=== PATIENT | female | born 1970 | race Caucasian/White ===

== ENCOUNTER 2018-04-10 20:23 | Emergency (ER) | payer OTHER, MEDICAID, SELFPAY ==
[2018-04-10 20:40] VITALS: BP 217/110; PULSE 82; RESP 18; TEMP 36.5; O2SAT 96; BMI 34.7
[2018-04-10 22:38] VITALS: BP 192/89; PULSE 82; RESP 18; TEMP 36.7; O2SAT 97
[2018-04-10] MEDS: ONDANSETRON 4 MG/2 ML INJ IV ×2 (23:00→23:28)
[2018-04-10 23:02] LABS: Add Manual Diff / Slide Review NO; Basophils Percent Auto 0.3 % (0-2); Eosinophils Percent Auto 0.2 % (2-4); Hematocrit 41.3 % (36-46); Hemoglobin 13.9 g/dL (12.0-16.0); Lymphocytes Percent Auto 5.9 % (25-40); Mean Corpuscular HGB Conc 33.6 % (30-36); Mean Corpuscular Hemoglobin 31.3 PG (26-34); Monocytes Percent Auto 2.4 % (3-14); Neutrophils Absolute Auto 17900 /uL (3000-5900); Neutrophils Percent Auto 91.2 % (50-75); Platelet Count 294 X10^3/uL (150-400); Red Blood Cell Count 4.44 X10^6/uL (4.0-5.2); Red Cell Distribution Width 13.4 % (11.6-14.8); White Blood Cell Count 19.6 X10^3/uL (4.5-11.0)
[2018-04-10 23:16] LABS: Alanine Aminotransferase 30 IU/L (9-52); Albumin 4.7 g/dL (3.5-5.0); Albumin Globulin Ratio 1.3 (1.0-2.8); Alkaline Phosphatase 94 U/L (38-126); Aspartate Aminotransferase 23 IU/L (14-36); BUN Creatinine Ratio 18.6 (6-22); Bilirubin Total 0.6 mg/dL (0.2-1.3); Blood Urea Nitrogen 13 mg/dL (7-17); Calcium 9.4 mg/dL (8.4-10.2); Carbon Dioxide 24 mmol/L (22-32); Chloride 103 mmol/L (98-107); Estimated Glomerular Filt Rate > 60.0 mL/min (>60); Globulin 3.7 g/dL (1.7-4.1); Glucose 267 mg/dL (70-100); HEMOLYSIS < 15 (0-50); Lipase 99 U/L (23-300); Potassium 3.8 mmol/L (3.4-5.1); Sodium 141 mmol/L (137-145); Total Protein 8.4 g/dL (6.3-8.2)
--- NOTE | 2018-04-10 23:19 | DI.CT.S_ITS ---
PROCEDURE: CT ABDOMEN PELVIS W CON INDICATIONS: severe abdominal pain TECHNIQUE: After the administration of intravenous contrast, 5 mm thick sections acquired from the diaphragm to the symphysis. 5 mm coronal and sagittal reformats were acquired. For radiation dose reduction, the following was used: automated exposure control, adjustment of mA and/or kV according to patient size. COMPARISON: [facility], CT, ABDOMEN/PELVIS WITH CONTRAST, 04/21/2017, 14:29. FINDINGS: Image quality: Excellent. ABDOMEN: Lung bases: Lung bases are clear. Heart size is normal. Solid organs: Liver is mildly enlarged. Gallbladder is unremarkable. Biliary system is non dilated. Pancreas enhances normally. Spleen is normal in size and enhancement. No adrenal nodules. Kidneys demonstrate normal size and enhancement, without hydronephrosis. Peritoneum and bowel: There is significant thickening and masslike appearance within the cecum extending into the proximal ascending colon. Transverse, descending and sigmoid colon appear thickened. However, they are incompletely distended. Pericolonic inflammatory change is noted surrounding the cecum and ascending colon. The appendix is unremarkable. Nodes and vessels: No retroperitoneal or mesenteric adenopathy by size criteria. However, multiple right lower quadrant lymph nodes are present ranging in size from 2-4 mm. Aorta and inferior vena cava are normal in size. Miscellaneous: No ventral hernias. PELVIS: Genitourinary: Bladder wall thickness is normal. Multiple low attenuation foci are present within the right adnexal region. Miscellaneous: No inguinal hernias or adenopathy. Bones: No suspicious bony lesions. No vertebral body compression fractures. IMPRESSION: 1. Inflammatory change within the cecum and ascending colon as above with surrounding lymph nodes and pericolonic stranding. Overall appearance is suggestive of infection/inflammation such as colitis with reactionary lymph nodes. However, due to a somewhat masslike appearance, interval imaging followup is recommended after appropriate therapy to document resolution and exclude presence of underlying mass. Dictated by: Margarita Teran M.D. on 04/11/2018 at 8:38 Approved by: Margarita Teran M.D. on 04/11/2018 at 8:46
[2018-04-10] MEDS: HYDROMORPHONE 0.5 MG INJ IV (23:29)
[2018-04-10] MEDS: PANTOPRAZOLE 40 MG VIAL IV (23:30)
[2018-04-10] MEDS: SODIUM CHLORIDE 0.9% 1,000 ML 150 ML IV (23:45)
[2018-04-11 00:40] VITALS: BP 185/89; PULSE 88; RESP 18; O2SAT 97
[2018-04-11] MEDS: ONDANSETRON 4 MG ODT PREPACK 1 BOTTLE MISC (00:57)
[2018-04-11] MEDS: metroNIDAZOLE 250 MG TABLET 500 MG PO (00:57)
[2018-04-11] MEDS: levoFLOXacin 500 MG TABLET PO (00:57)
[2018-04-11] MEDS: OXYCODONE/APAP 5/325 PREPACK 1 BOTTLE MISC (01:00)
--- NOTE | 2018-04-11 05:12 | ED_ITS ---
HPI - Abdominal Pain General Chief Complaint: Abdominal Pain Stated Complaint: THOWING UP DIARRHEA STOMACH PAIN Time Seen by Provider: 04/10/18 20:58 Source: patient Mode of arrival: ambulatory Limitations: no limitations History of Present Illness HPI narrative: Patient presents to the emergency department today with a chief complaint of some generalized abdominal discomfort as well as nausea, vomiting and occasional diarrhea. She is not dizzy nor weak or lightheaded. She denies any recent antibiotics. She denies any chest pain or shortness of breath. She has had no fever or chills. She denies recent travel or exposure to bad food. MD complaint: abdominal pain Onset (ago): day(s) Pain Consistency: constant Location: diffuse Severity: moderate Quality: cramping and aching Radiation: none Migration to: no migration Relieving factors: nothing Exacerbating factors: nothing Associated symptoms: nausea, vomiting and diarrhea Related Data Home Medications Medication Instructions Recorded Confirmed [METOCLOPRAMIDE HCL ] 5 mg PO PRN PRN #0 08/25/17 ondansetron 4 mg PO Q8HP PRN #0 08/25/17 Previous Rx's Medication Instructions Recorded [Custom Inserts] units #6 06/11/17 albuterol sulfate [Proventil HFA] 2 puff INH Q4-6H #1 inh 06/18/17 fluticasone [Flovent HFA] 1 - 2 puff INH Q12H #1 inh 06/18/17 Glucose: Home Monitoring Kit 0 kit #1 ea 07/16/17 rabeprazole 20 mg PO BID #60 tab 11/06/17 gabapentin [Neurontin] 300 - 600 mg PO HS #180 cap 12/16/17 lisinopril 2.5 mg PO QDAY #90 tab 12/30/17 metformin [Glucophage] 500 mg PO BIDCC #180 tab 12/30/17 Glucose: Test Strips str BID #180 01/01/18 fluconazole [Diflucan] 150 mg PO ONCE #2 tab 01/01/18 insulin glargine [Lantus Solostar 60 - 80 unit SQ BID 90 Days #0 01/01/18 U-100 Insulin] Diabetic shoes & Inserts&Guantlets #1 ea 02/03/18 pen needle, diabetic 31 gauge x #100 each 02/09/1802/04 ciprofloxacin HCl [Cipro] 500 mg PO BID 10 Days #20 tab 07/21/18 metronidazole [Flagyl] 500 mg PO TID 10 Days #30 tab 04/11/18 Allergies Allergy/AdvReac Type Severity Reaction Status Date / Time codeine [CODEINE] Allergy Severe HIVES AND Verified 04/10/18 23:28 ITCHING ibuprofen [IBUPROFEN] Allergy Severe SEVERE Verified 04/10/18 23:28 ABDOMINAL PAIN AND OTHER STOMACH ISSUES morphine [MORPHINE] Allergy Severe BURNING, Verified 04/10/18 23:28 REDNESS Sulfa (Sulfonamide Allergy Severe HIVES Verified 04/10/18 23:28 Antibiotics) [SULFA (SULFONAMIDE ANTIBIOTICS)] hydrocodone [HYDROCODONE] Allergy Intermediate ITCHING Verified 04/10/18 23:28 doxycycline [DOXYCYCLINE] AdvReac Intermediate reaction Verified 04/10/18 23:28 to sunlight-burning ketorolac [From TORADOL] AdvReac Intermediate vomiting Verified 04/10/18 23:28 nitrofurantoin AdvReac Mild NAUSEA AND Verified 04/10/18 23:28 [NITROFURANTOIN] VOMITING Review of Systems Review of Systems All systems reviewed & are unremarkable except as noted in HPI and below Constitutional Denies chills, Denies fever(s), Denies lethargy and Denies weakness Eyes Denies change in vision, Denies eye discharge, Denies irritation and Denies loss of vision ENT Ears, Nose, Mouth, and Throat: Denies change in voice, Denies neck pain and Denies sore throat Cardiovascular Denies chest pain, Denies irregular heart rhythm, Denies lightheadedness, Denies palpitations, Denies dyspnea, Denies dyspnea on exertion and Denies orthopnea Respiratory Denies cough, Denies dyspnea, Denies dyspnea on exertion and Denies wheezing Gastrointestinal Gastrointestinal: Reports abdominal pain, Denies change in bowel habits, Reports diarrhea, Reports nausea and Reports vomiting Genitourinary Denies hematuria, Denies flank pain, Denies urinary incontinence and Denies urinary urgency Musculoskeletal Denies neck pain Integumentary/Breasts Denies pruritus, Denies erythema, Denies rash and Denies wounds Neurologic Denies confusion, Denies loss of vision and Denies weakness Psychiatric Denies anxiety, Denies confusion, Denies depression, Denies homicidal ideation and Denies suicidal ideation Endocrine Denies palpitations Hematologic/Lymphatic Denies easy bruising Allergic/Immunologic Denies wheezing PFSH Surgical History History of tonsillectomy Status post delivery Status post hysterectomy Family History Father Heart disease Diabetes mellitus Social History Smoking Status: Former smoker Exam Initial Vital Signs Initial Vital Signs: Vital Signs Temperature 97.7 F 04/10/18 20:40 Pulse Rate 82 04/10/18 20:40 Respiratory Rate 18 04/10/18 20:40 Blood Pressure 217/110 H 04/10/18 20:40 Pulse Oximetry 96 04/10/18 20:40 Const General: cooperative, well developed and acute distress Nutritional Appearance: well nourished Orientation: alert, awake, oriented x3 and not confused HENCT Head: normocephalic and atraumatic Ears: external ears normal and TM's normal bilaterally Nose: external nose normal and No nasal discharge Face and sinus: sinuses nontender, face symmetric, no sinus tenderness and No dry mucous membranes Mouth: oral mucosae normal and moist mucous membranes Teeth and gingiva: dentition normal Throat: tonsils normal and uvula midline Eyes General: appearance normal, both eyes and all related structures Eyelids: eyelids normal Conjunctivae: conjunctivae normal Sclera: sclerae normal Pupils: PERRL EOM: EOM intact bilaterally Neck Neck: normal visual inspection, trachea midline, No lymphadenopathy, No midline deformity and No JVD Lymphatic: No lymphedema Chest Chest: normal inspection of the chest Resp Effort & Inspection: normal respiratory effort, able to speak in complete sentences, no respiratory distress and no use of accessory muscles Auscultation: clear to auscultation bilaterally, no rales, no rhonchi and no wheezes Cardio Rate: regular rate Rhythm: regular rhythm Heart Sounds: no click, no gallops, no murmurs and no rubs Pulses: normal peripheral pulses GI Inspection: non-distended Palpation: soft, no hepatosplenomegaly, No guarding, No pulsatile mass and tender (generalized tenderness) Auscultation: normal bowel sounds Back/Spine/Pelvis Back: No CVA tenderness Cervical Spine: cervical ROM normal and No pain with cervical ROM Thoracic/Lumbar Spine: thoracic and lumbar spine normal to inspection Skin General: no rashes or lesions noted, No jaundice and No petechiae Neuro General: alert, oriented x3, gait normal and no focal motor deficits Speech: speech normal Extrem General: full ROM, no clubbing, cyanosis or edema, no pedal edema and no calf tenderness Psych Appearance: well kempt Mental Status: mental status grossly normal Attitude: cooperative Thought Content: normal and suicidality Judgment: judgment good Course Orders Ordered: ED Orders 04/10/18 22:50 Complete Blood Count AUTO DIFF Stat Comprehensive Metabolic Panel Stat Lipase Stat 04/10/18 23:19 CT abdomen pelvis w con Stat 04/11/18 00:49 Urine Microscopic Stat Discontinued Medications Hydromorphone HCl (Dilaudid) 0.5 mg IV NOW ONE Stop: 04/10/18 23:20 Last Admin: 04/10/18 23:29 Dose: 0.5 mg Sodium Chloride (Normal Saline 0.9%) 1,000 mls @ 150 mls/hr IV CONT HENRIETTA Last Infusion: 04/11/18 00:55 Dose: 150 mls/hr Admin: 04/10/18 23:45 Dose: 150 mls/hr Levofloxacin (Levaquin) 500 mg PO NOW ONE Stop: 04/11/18 00:51 Last Admin: 04/11/18 00:57 Dose: 500 mg Metronidazole (Metronidazole) 500 mg PO NOW ONE Stop: 04/11/18 00:51 Last Admin: 04/11/18 00:57 Dose: 500 mg Ondansetron HCl (Zofran) 4 mg IV Q4HR PRN PRN Reason: Nausea And Vomiting Last Admin: 04/10/18 23:28 Dose: 4 mg Admin: 04/10/18 23:00 Dose: 4 mg Ondansetron HCl (Zofran Odt Prepack) 1 bottle MISC SEEINSTR ONE Stop: 04/11/18 00:52 Last Admin: 04/11/18 00:57 Dose: 1 bottle Oxycodone/Acetaminophen (Endocet 5/325 Prepack) 1 bottle MISC SEEINSTR ONE Stop: 04/11/18 00:52 Last Admin: 04/11/18 01:00 Dose: 1 bottle Pantoprazole Sodium (Protonix) 40 mg IV NOW ONE Stop: 04/10/18 23:20 Last Admin: 04/10/18 23:30 Dose: 40 mg Reevaluation(s) Reevaluation #1: Patient feeling much better after the above-stated medications. Vital Signs - 8 hr 04/10/18 22:38 04/11/18 00:40 Temperature 98.0 F Pulse Rate 82 88 Respiratory Rate 18 18 Blood Pressure [Left Arm] 192/89 H 185/89 H Pulse Oximetry 97 97 MDM - Abdominal Pain Lab Data Result diagrams: 04/10/18 22:50 04/10/18 22:50 Lab Results 04/10/18 04/10/18 Range/Units 22:50 22:50 WBC 19.6 H (4.5-11.0) X10^3/uL RBC 4.44 (4.0-5.2) X10^6/uL Hgb 13.9 (12.0-16.0) g/dL Hct 41.3 (36-46) % MCV 93.0 (80-100) fL MCH 31.3 (26-34) PG MCHC 33.6 (30-36) % RDW 13.4 (11.6-14.8) % Plt Count 294 (150-400) X10^3/uL Neut % (Auto) 91.2 H (50-75) % Lymph % (Auto) 5.9 L (25-40) % [place] % (Auto) 2.4 L (3-14) % Eos % (Auto) 0.2 L (2-4) % Baso % (Auto) 0.3 (0-2) % Neut # (Auto) 39243 H (1043-9459) /uL Sodium 141 (137-145) mmol/L Potassium 3.8 (3.4-5.1) mmol/L Chloride 103 (98-107) mmol/L Carbon Dioxide 24 (22-32) mmol/L BUN 13 (7-17) mg/dL Creatinine 0.70 (0.52-1.04) mg/dL Estimated GFR > 60.0 (>60) mL/min BUN/Creatinine Ratio 18.6 (6-22) Glucose 267 H (70-100) mg/dL Calcium 9.4 (8.4-10.2) mg/dL Total Bilirubin 0.6 (0.2-1.3) mg/dL AST 23 (14-36) IU/L ALT 30 (9-52) IU/L Alkaline Phosphatase 94 (38-126) U/L Total Protein 8.4 H (6.3-8.2) g/dL Albumin 4.7 (3.5-5.0) g/dL Globulin 3.7 (1.7-4.1) g/dL Albumin/Globulin Ratio 1.3 (1.0-2.8) Lipase 99 (23-300) U/L Point of care testing: Urine Dip Bedside Urine Glucose 1000 mg/dl Bedside Urine Bilirubin - Negative Bedside Urine Ketone ++ 40 Urine Specific Randall 1.020 Bedside Urine Occult Blood - Negative Bedside Urine pH 7.5 Bedside Urine Protein + 30 Bedside Urine Urobilinogen - Negative Bedside Urine Nitrite - Negative Bedside Urine Leukocytes - Negative Esterase MDM Narrative Medical decision making narrative: Patient with extensive bowel history presents with abdominal pain and nausea, vomiting and diarrhea. Labs note elevated white blood cells, consistent with vomiting versus bacterial infection of bowel. CT suggest colitis. Pain controlled well, patient rehydrated and placed on antibiotics of Discharge Plan Departure Patient Disposition: Home, Self-Care Clinical Impression: Colitis Discharge Date/Time: 04/11/18 01:13 Interventions: ED Discharge Assessment Last Done: 04/11/18 01:13 Instructions: DI for Colitis Activity Restrictions/Additional Instructions: 1. Drink plenty of fluids with frequent small sips. 2. For the next 24 hours a clear liquid diet is advised. After that please employ a brat diet which would include bananas, rice, apples, toast. 3. Please take medications as directed. Your prescriptions have been electronically transmitted to [facility] based on your past preferences 4. Please follow-up with your doctor in the next 1-2 days. Call the office for an appointment. 5. Please return to the emergency Department for any worsening or persistent symptoms, such as increasing pain or fever. Prescriptions: New metronidazole [Flagyl] 500 mg tablet 500 mg PO TID 10 Days Qty: 30 RF: 0 ciprofloxacin HCl [Cipro] 500 mg tablet 500 mg PO BID 10 Days Qty: 20 RF: 0 No Action [Custom Inserts] Qty: 6 RF: 0 fluticasone [Flovent HFA] 10.6 GM HFA aerosol inhaler 1 - 2 puff INH Q12H Qty: 1 RF: 3 albuterol sulfate [Proventil HFA] 90 MCG/PUFF HFA aerosol inhaler 2 puff INH Q4-6H Qty: 1 RF: 3 Glucose: Home Monitoring Kit Qty: 1 RF: 0 [METOCLOPRAMIDE HCL ] 5 mg PO PRN PRNQty: 0 RF: 0 ondansetron 4 MG tablet,disintegrating 4 mg PO Q8HP PRNQty: 0 RF: 0 rabeprazole 20 MG tablet,delayed release (DR/EC) 20 mg PO BID Qty: 60 RF: 3 gabapentin [Neurontin] 300 MG capsule 300 - 600 mg PO HS Qty: 180 RF: 0 metformin [Glucophage] 500 MG tablet 500 mg PO BIDCC Qty: 180 RF: 3 lisinopril 2.5 MG tablet 2.5 mg PO QDAY Qty: 90 RF: 3 Glucose: Test Strips BID Qty: 180 RF: 6 fluconazole [Diflucan] 150 MG tablet 150 mg PO ONCE Qty: 2 RF: 1 insulin glargine [Lantus Solostar U-100 Insulin] 100 UNIT/1 ML insulin pen 60 - 80 unit SQ BID 90 Days Qty: 0 RF: 3 Diabetic shoes & Inserts&Guantlets Qty: 1 RF: 0 pen needle, diabetic [Comfort EZ Pen Roxana] 31 gauge x 5/16 needle .ROUTE .MEDSUPPLY Qty: 100 RF: 0 Referrals: Alexus Fallon PA-C [Primary Care Provider] -
[2018-04-11 08:15] LABS: Bacteria Urine None Seen; RBC Urine None Seen (0-5/HPF); WBC Urine None Seen (0-5/HPF)
[2018-04-11 08:24] LABS: Culture Indicated Urine Cult Not Indicated; Squamous Epithelial Cell Urine 1-5 /HPF
== END 2018-04-11 01:13 | disposition home or self-care (01) ==
PROVIDERS: Emergency Provider Emergency Medicine; Family Provider Physician Assistant; PCP Physician Assistant
DX: K52.9 Noninfective gastroenteritis and colitis, unspecified (principal)
CPT/HCPCS: 36591; 74177; 80053; 81003; 81015; 83690; 85025; 96361; 96374; 96375; 99283; 99284; C9113; J1170; J2405; Q9967

== ENCOUNTER 2018-04-12 11:43 | Emergency (ER) | payer OTHER, MEDICAID, SELFPAY ==
[2018-04-12 12:30] VITALS: BP 155/108; PULSE 105; RESP 18; O2SAT 99
[2018-04-12 12:49] VITALS: PULSE 105; RESP 18; O2SAT 99
--- NOTE | 2018-04-12 13:05 | PC.NURSE ---
atttempted x 2 to start IV - unsuccessful. Izabela DO will try
[2018-04-12 13:27] LABS: Add Manual Diff / Slide Review NO; Basophils Percent Auto 0.4 % (0-2); Hematocrit 47.5 % (36-46); Hemoglobin 16.1 g/dL (12.0-16.0); Mean Corpuscular HGB Conc 33.8 % (30-36); Mean Corpuscular Hemoglobin 31.1 PG (26-34); Mean Corpuscular Volume 91.9 fL (80-100); Neutrophils Absolute Auto 18600 /uL (3000-5900); Neutrophils Percent Auto 88.6 % (50-75); Platelet Count 387 X10^3/uL (150-400); Red Blood Cell Count 5.17 X10^6/uL (4.0-5.2); Red Cell Distribution Width 13.3 % (11.6-14.8); White Blood Cell Count 20.9 X10^3/uL (4.5-11.0)
[2018-04-12] MEDS: SODIUM CHLORIDE 0.9% 1,000 ML 1000 ML IV ×2 (13:27→15:00)
[2018-04-12] MEDS: HALOPERIDOL 5 MG/ML VIAL 3 MG IV (13:28)
[2018-04-12 13:30] VITALS: BP 145/75
[2018-04-12] MEDS: DICYCLOMINE 10 MG CAPSULE 20 MG PO (13:32)
[2018-04-12 13:36] LABS: Lactate (Lactic Acid) 1.5 mmol/L (0.7-2.1)
[2018-04-12 13:41] LABS: Alanine Aminotransferase 24 IU/L (9-52); Albumin 4.8 g/dL (3.5-5.0); Albumin Globulin Ratio 1.2 (1.0-2.8); Alkaline Phosphatase 98 U/L (38-126); Aspartate Aminotransferase 28 IU/L (14-36); Bilirubin Total 0.8 mg/dL (0.2-1.3); Blood Urea Nitrogen 18 mg/dL (7-17); Calcium 9.8 mg/dL (8.4-10.2); Carbon Dioxide 26 mmol/L (22-32); Chloride 95 mmol/L (98-107); Estimated Glomerular Filt Rate 58.9 mL/min (>60); Glucose 233 mg/dL (70-100); HEMOLYSIS < 15 (0-50); Lipase 99 U/L (23-300); Potassium 3.5 mmol/L (3.4-5.1); Sodium 137 mmol/L (137-145); Total Protein 8.8 g/dL (6.3-8.2)
--- NOTE | 2018-04-12 15:07 | ED_ITS ---
HPI - Abdominal Pain General Chief Complaint: Abdominal Pain Stated Complaint: returning for colitis-seen on Friday History of Present Illness HPI narrative: HPI 47-year-old morbidly obese female with IDDM presents for evaluation of ongoing and/B/D that is been present for 3-4 days, patient has been having for plus loose watery stools per day and infrequent vomiting. Patient was seen 3 days prior and initiated on ciprofloxacin and Flagyl without change in symptoms. * Character: non-bloody, no mucus, no pus. * Denies: fresh or salt water exposure, recent hospitalization, travel, drinking untreated water, history of c. difficile. * Fever/chills/rigors: denies. * HIV or immunocompromise: denies. * Cough: denies. M/S/F/SocHx notable for: please see HPI; remainder reviewed with patient and in chart. ROS: Negative constitutional, eye, cardiovascular, pulmonary, GI, , MSK, skin , neurologic, psychiatric, endocrine unless noted in the HPI. Exam Gen: Pleasant, non-toxic appearing, resting comfortably. HEENT: NC, AT, PEERL, EOMI, neck supple with full range of movement. Resp: Clear to auscultation bilaterally, normal work of breathing, no accessory muscle usage. Card: Regular rate and rhythm with no murmurs, rubs, or gallops, extremities warm and well perfused. GI: Non-tender to palpation throughout all quadrants, no focal tenderness at McBurney's point, negative Ryder's sign, non-distended, no rebound or guarding. : No suprapubic tenderness to palpation. MSK: No visible deformities, strength and tone without visually appreciable deficit. Skin: Normal color with no visible lesions. Neuro: AO x 3, no facial asymmetry, vision and hearing WNL. Psych: Mood and affect appropriate. Labs / Imaging (pertinent): WBC 20.9, HB 16.1, sodium 137, potassium 3.5, creatinine 1.00, lactic acid 1.5, Procalcitonin 0.10. MDM Previous chart, nursing note, and vitals reviewed. A: 47-year-old morbidly obese female with IDDM presents for evaluation of ongoing and/B/D that is been present for 3-4 days, patient has been having for plus loose watery stools per day and infrequent vomiting. DDx: viral enteritis, viral gastroenteritis, bacterial gastroenteritis, food poisoning, C. Difficile, dehydration, electrolyte abnormalities, septicemia/ bacteremia, DKA, acute appendicitis, inflammatory (Crohn?s vs ulcerative colitis ). Evaluation: Given the overall symptom constellation, suspect a viral gastroenteritis. As there was a concern for significant dehydration, labs were checked, these were within clinically acceptable limits. Community acquired C. Difficile was also considered, but given the lack of identifiable risk factors and the short duration of symptoms stool studies are not currently indicated. Also, given the absence of fever, identifiable risk factors, or significant abdominal pain on exam, further stool studies are also not presently indicated. Also considered with septicemia/bacteremia, DKA, acute appendicitis, these are felt to be effectively excluded due to the normal respiratory rate, benign abdominal exam, absence of fever, the patient?s overall well appearance. Patient given Haldol, Bentyl, and 1 L normal saline and was able to take PO in the department; prescribed Bentyl and Zofran and instructed to use loperamide PRN and to follow up with their PCP tomorrow for repeat evaluation Impression: diarrhea (please reference below for remainder of encounter information) Related Data Home Medications Medication Instructions Recorded Confirmed [METOCLOPRAMIDE HCL ] 5 mg PO PRN PRN #0 08/25/17 ondansetron 4 mg PO Q8HP PRN #0 08/25/17 Previous Rx's Medication Instructions Recorded [Custom Inserts] units #6 06/11/17 albuterol sulfate [Proventil HFA] 2 puff INH Q4-6H #1 inh 06/18/17 fluticasone [Flovent HFA] 1 - 2 puff INH Q12H #1 inh 06/18/17 Glucose: Home Monitoring Kit 0 kit #1 ea 07/16/17 rabeprazole 20 mg PO BID #60 tab 11/06/17 gabapentin [Neurontin] 300 - 600 mg PO HS #180 cap 12/16/17 lisinopril 2.5 mg PO QDAY #90 tab 12/30/17 metformin [Glucophage] 500 mg PO BIDCC #180 tab 12/30/17 Glucose: Test Strips str BID #180 01/01/18 fluconazole [Diflucan] 150 mg PO ONCE #2 tab 01/01/18 insulin glargine [Lantus Solostar 60 - 80 unit SQ BID 90 Days #0 01/01/18 U-100 Insulin] Diabetic shoes & Inserts&Guantlets #1 ea 02/03/18 pen needle, diabetic 31 gauge x #100 each 02/09/1802/04 ciprofloxacin HCl [Cipro] 500 mg PO BID 10 Days #20 tab 04/11/18 metronidazole [Flagyl] 500 mg PO TID 10 Days #30 tab 04/11/18 Allergies Allergy/AdvReac Type Severity Reaction Status Date / Time codeine [CODEINE] Allergy Severe HIVES AND Verified 04/10/18 23:28 ITCHING ibuprofen [IBUPROFEN] Allergy Severe SEVERE Verified 04/10/18 23:28 ABDOMINAL PAIN AND OTHER STOMACH ISSUES morphine [MORPHINE] Allergy Severe BURNING, Verified 04/10/18 23:28 REDNESS Sulfa (Sulfonamide Allergy Severe HIVES Verified 04/10/18 23:28 Antibiotics) [SULFA (SULFONAMIDE ANTIBIOTICS)] hydrocodone [HYDROCODONE] Allergy Intermediate ITCHING Verified 04/10/18 23:28 doxycycline [DOXYCYCLINE] AdvReac Intermediate reaction Verified 04/10/18 23:28 to sunlight-burning ketorolac [From TORADOL] AdvReac Intermediate vomiting Verified 04/10/18 23:28 nitrofurantoin AdvReac Mild NAUSEA AND Verified 04/10/18 23:28 [NITROFURANTOIN] VOMITING PFS Surgical History History of tonsillectomy Status post delivery Status post hysterectomy Family History Father Heart disease Diabetes mellitus Social History Smoking Status: Former smoker Exam Initial Vital Signs Initial Vital Signs: Vital Signs Pulse Rate 105 H 04/12/18 12:30 Respiratory Rate 18 04/12/18 12:30 Blood Pressure 155/108 H 04/12/18 12:30 Pulse Oximetry 99 04/12/18 12:30 Course Orders Ordered: ED Orders 04/12/18 12:35 Urinalysis and Microscopic Stat Urine Drug Screen, Rapid Stat 04/12/18 13:18 Complete Blood Count AUTO DIFF Stat Comprehensive Metabolic Panel Stat Lactate (Lactic Acid) Stat Lipase Stat Procalcitonin Stat Sodium Chloride (Normal Saline 0.9%) 1,000 mls @ 1,000 mls/hr IV BOLUS ONE Stop: 04/12/18 15:09 Discontinued Medications Dicyclomine HCl (Bentyl) 20 mg PO NOW ONE Stop: 04/12/18 12:34 Last Admin: 04/12/18 13:32 Dose: 20 mg Haloperidol (Haldol) 3 mg IV NOW ONE Stop: 04/12/18 12:34 Last Admin: 04/12/18 13:28 Dose: 3 mg Sodium Chloride (Normal Saline 0.9%) 1,000 mls @ 1,000 mls/hr IV BOLUS ONE Stop: 04/12/18 13:32 Last Admin: 04/12/18 13:27 Dose: 1,000 mls/hr Vital Signs - 8 hr 04/12/18 12:30 04/12/18 12:49 04/12/18 13:30 Pulse Rate 105 H 105 H Respiratory Rate 18 18 Blood Pressure [Left Arm] 155/108 H 145/75 H Pulse Oximetry 99 99 MDM - Abdominal Pain Lab Data Result diagrams: 04/12/18 13:18 04/12/18 13:18 Lab Results 04/12/18 04/12/18 04/12/18 Range/Units 13:18 13:18 13:18 WBC 20.9 H (4.5-11.0) X10^3/uL RBC 5.17 (4.0-5.2) X10^6/uL Hgb 16.1 H (12.0-16.0) g/dL Hct 47.5 H (36-46) % MCV 91.9 (80-100) fL MCH 31.1 (26-34) PG MCHC 33.8 (30-36) % RDW 13.3 (11.6-14.8) % Plt Count 387 (150-400) X10^3/uL Neut % (Auto) 88.6 H (50-75) % Lymph % (Auto) 8.0 L (25-40) % [facility] % (Auto) 3.0 (3-14) % Eos % (Auto) 0.0 L (2-4) % Baso % (Auto) 0.4 (0-2) % Neut # (Auto) 99645 H (0660-6210) /uL Sodium 137 (137-145) mmol/L Potassium 3.5 (3.4-5.1) mmol/L Chloride 95 L (98-107) mmol/L Carbon Dioxide 26 (22-32) mmol/L BUN 18 H (7-17) mg/dL Creatinine 1.00 (0.52-1.04) mg/dL Estimated GFR 58.9 L (>60) mL/min BUN/Creatinine Ratio 18.0 (6-22) Glucose 233 H (70-100) mg/dL Lactate (0.7-2.1) mmol/L Calcium 9.8 (8.4-10.2) mg/dL Total Bilirubin 0.8 (0.2-1.3) mg/dL AST 28 (14-36) IU/L ALT 24 (9-52) IU/L Alkaline Phosphatase 98 (38-126) U/L Total Protein 8.8 H (6.3-8.2) g/dL Albumin 4.8 (3.5-5.0) g/dL Globulin 4.0 (1.7-4.1) g/dL Albumin/Globulin Ratio 1.2 (1.0-2.8) Lipase 99 (23-300) U/L Procalcitonin 0.10 (<0.5) ng/mL 04/12/18 Range/Units 13:18 WBC (4.5-11.0) X10^3/uL RBC (4.0-5.2) X10^6/uL Hgb (12.0-16.0) g/dL Hct (36-46) % MCV (80-100) fL MCH (26-34) PG MCHC (30-36) % RDW (11.6-14.8) % Plt Count (150-400) X10^3/uL Neut % (Auto) (50-75) % Lymph % (Auto) (25-40) % [facility] % (Auto) (3-14) % Eos % (Auto) (2-4) % Baso % (Auto) (0-2) % Neut # (Auto) (9239-0448) /uL Sodium (137-145) mmol/L Potassium (3.4-5.1) mmol/L Chloride (98-107) mmol/L Carbon Dioxide (22-32) mmol/L BUN (7-17) mg/dL Creatinine (0.52-1.04) mg/dL Estimated GFR (>60) mL/min BUN/Creatinine Ratio (6-22) Glucose (70-100) mg/dL Lactate 1.5 (0.7-2.1) mmol/L Calcium (8.4-10.2) mg/dL Total Bilirubin (0.2-1.3) mg/dL AST (14-36) IU/L ALT (9-52) IU/L Alkaline Phosphatase (38-126) U/L Total Protein (6.3-8.2) g/dL Albumin (3.5-5.0) g/dL Globulin (1.7-4.1) g/dL Albumin/Globulin Ratio (1.0-2.8) Lipase (23-300) U/L Procalcitonin (<0.5) ng/mL Discharge Plan Departure Prescriptions: No Action [Custom Inserts] Qty: 6 RF: 0 fluticasone [Flovent HFA] 10.6 GM HFA aerosol inhaler 1 - 2 puff INH Q12H Qty: 1 RF: 3 albuterol sulfate [Proventil HFA] 90 MCG/PUFF HFA aerosol inhaler 2 puff INH Q4-6H Qty: 1 RF: 3 Glucose: Home Monitoring Kit Qty: 1 RF: 0 [METOCLOPRAMIDE HCL ] 5 mg PO PRN PRNQty: 0 RF: 0 ondansetron 4 MG tablet,disintegrating 4 mg PO Q8HP PRNQty: 0 RF: 0 rabeprazole 20 MG tablet,delayed release (DR/EC) 20 mg PO BID Qty: 60 RF: 3 gabapentin [Neurontin] 300 MG capsule 300 - 600 mg PO HS Qty: 180 RF: 0 metformin [Glucophage] 500 MG tablet 500 mg PO BIDCC Qty: 180 RF: 3 lisinopril 2.5 MG tablet 2.5 mg PO QDAY Qty: 90 RF: 3 Glucose: Test Strips BID Qty: 180 RF: 6 fluconazole [Diflucan] 150 MG tablet 150 mg PO ONCE Qty: 2 RF: 1 insulin glargine [Lantus Solostar U-100 Insulin] 100 UNIT/1 ML insulin pen 60 - 80 unit SQ BID 90 Days Qty: 0 RF: 3 Diabetic shoes & Inserts&Guantlets Qty: 1 RF: 0 pen needle, diabetic [Comfort EZ Pen [place]] 31 gauge x 5/16 needle .ROUTE .MEDSUPPLY Qty: 100 RF: 0 metronidazole [Flagyl] 500 mg tablet 500 mg PO TID 10 Days Qty: 30 RF: 0 ciprofloxacin HCl [Cipro] 500 mg tablet 500 mg PO BID 10 Days Qty: 20 RF: 0
--- NOTE | 2018-04-12 15:10 | ED.ABDPAIN ---
HPI - Abdominal Pain General Chief Complaint: Abdominal Pain Stated Complaint: returning for colitis-seen on Friday History of Present Illness HPI narrative: HPI 47-year-old morbidly obese female with IDDM presents for evaluation of ongoing and/B/D that is been present for 3-4 days, patient has been having for plus loose watery stools per day and infrequent vomiting. Patient was seen 3 days prior and initiated on ciprofloxacin and Flagyl without change in symptoms. * Character: non-bloody, no mucus, no pus. * Denies: fresh or salt water exposure, recent hospitalization, travel, drinking untreated water, history of c. difficile. * Fever/chills/rigors: denies. * HIV or immunocompromise: denies. * Cough: denies. M/S/F/SocHx notable for: please see HPI; remainder reviewed with patient and in chart. ROS: Negative constitutional, eye, cardiovascular, pulmonary, GI, , MSK, skin, neurologic, psychiatric, endocrine unless noted in the HPI. Exam Gen: Pleasant, non-toxic appearing, resting comfortably. HEENT: NC, AT, PEERL, EOMI, neck supple with full range of movement. Resp: Clear to auscultation bilaterally, normal work of breathing, no accessory muscle usage. Card: Regular rate and rhythm with no murmurs, rubs, or gallops, extremities warm and well perfused. GI: Non-tender to palpation throughout all quadrants, no focal tenderness at McBurney's point, negative Ryder's sign, non-distended, no rebound or guarding. : No suprapubic tenderness to palpation. MSK: No visible deformities, strength and tone without visually appreciable deficit. Skin: Normal color with no visible lesions. Neuro: AO x 3, no facial asymmetry, vision and hearing WNL. Psych: Mood and affect appropriate. Labs / Imaging (pertinent): WBC 20.9, HB 16.1, sodium 137, potassium 3.5, creatinine 1.00, lactic acid 1.5, Procalcitonin 0.10. MDM Previous chart, nursing note, and vitals reviewed. A: 47-year-old morbidly obese female with IDDM presents for evaluation of ongoing and/B/D that is been present for 3-4 days, patient has been having for plus loose watery stools per day and infrequent vomiting. DDx: viral enteritis, viral gastroenteritis, bacterial gastroenteritis, food poisoning, C. Difficile, dehydration, electrolyte abnormalities, septicemia/bacteremia, DKA, acute appendicitis, inflammatory (Crohn?s vs ulcerative colitis). Evaluation: Given the overall symptom constellation, suspect a viral gastroenteritis. As there was a concern for significant dehydration, labs were checked, these were within clinically acceptable limits. Community acquired C. Difficile was also considered, but given the lack of identifiable risk factors and the short duration of symptoms stool studies are not currently indicated. Also, given the absence of fever, identifiable risk factors, or significant abdominal pain on exam, further stool studies are also not presently indicated. Also considered with septicemia/bacteremia, DKA, acute appendicitis, these are felt to be effectively excluded due to the normal respiratory rate, benign abdominal exam, absence of fever, the patient?s overall well appearance. Patient given Haldol, Bentyl, and 1 L normal saline and was able to take PO in the department; prescribed Bentyl and Zofran and instructed to use loperamide PRN and to follow up with their PCP tomorrow for repeat evaluation Impression: diarrhea (please reference below for remainder of encounter information) Related Data Home Medications Medication Instructions Recorded Confirmed [METOCLOPRAMIDE HCL ] 5 mg PO PRN PRN #0 08/25/17 ondansetron 4 mg PO Q8HP PRN #0 08/25/17 Previous Rx's Medication Instructions Recorded [Custom Inserts] units #6 06/11/17 albuterol sulfate [Proventil HFA] 2 puff INH Q4-6H #1 inh 06/18/17 fluticasone [Flovent HFA] 1 - 2 puff INH Q12H #1 inh 06/18/17 Glucose: Home Monitoring Kit 0 kit #1 ea 07/16/17 rabeprazole 20 mg PO BID #60 tab 11/06/17 gabapentin [Neurontin] 300 - 600 mg PO HS #180 cap 12/16/17 lisinopril 2.5 mg PO QDAY #90 tab 12/30/17 metformin [Glucophage] 500 mg PO BIDCC #180 tab 12/30/17 Glucose: Test Strips str BID #180 01/01/18 fluconazole [Diflucan] 150 mg PO ONCE #2 tab 01/01/18 insulin glargine [Lantus Solostar 60 - 80 unit SQ BID 90 Days #0 01/01/18 U-100 Insulin] Diabetic shoes & Inserts&Guantlets #1 ea 02/03/18 pen needle, diabetic 31 gauge x #100 each 02/09/1802/04 ciprofloxacin HCl [Cipro] 500 mg PO BID 10 Days #20 tab 04/11/18 metronidazole [Flagyl] 500 mg PO TID 10 Days #30 tab 04/11/18 Allergies Allergy/AdvReac Type Severity Reaction Status Date / Time codeine [CODEINE] Allergy Severe HIVES AND Verified 04/10/18 23:28 ITCHING ibuprofen [IBUPROFEN] Allergy Severe SEVERE Verified 04/10/18 23:28 ABDOMINAL PAIN AND OTHER STOMACH ISSUES morphine [MORPHINE] Allergy Severe BURNING, Verified 04/10/18 23:28 REDNESS Sulfa (Sulfonamide Allergy Severe HIVES Verified 04/10/18 23:28 Antibiotics) [SULFA (SULFONAMIDE ANTIBIOTICS)] hydrocodone [HYDROCODONE] Allergy Intermediate ITCHING Verified 04/10/18 23:28 doxycycline [DOXYCYCLINE] AdvReac Intermediate reaction Verified 04/10/18 23:28 to sunlight-burning ketorolac [From TORADOL] AdvReac Intermediate vomiting Verified 04/10/18 23:28 nitrofurantoin AdvReac Mild NAUSEA AND Verified 04/10/18 23:28 [NITROFURANTOIN] VOMITING PFS Surgical History History of tonsillectomy Status post delivery Status post hysterectomy Family History Father Heart disease Diabetes mellitus Social History Smoking Status: Former smoker Exam Initial Vital Signs Initial Vital Signs: Vital Signs Pulse Rate 105 H 04/12/18 12:30 Respiratory Rate 18 04/12/18 12:30 Blood Pressure 155/108 H 04/12/18 12:30 Pulse Oximetry 99 04/12/18 12:30 Course Orders Ordered: ED Orders 04/12/18 12:35 Urinalysis and Microscopic Stat Urine Drug Screen, Rapid Stat 04/12/18 13:18 Complete Blood Count AUTO DIFF Stat Comprehensive Metabolic Panel Stat Lactate (Lactic Acid) Stat Lipase Stat Procalcitonin Stat Discontinued Medications Dicyclomine HCl (Bentyl) 20 mg PO NOW ONE Stop: 04/12/18 12:34 Last Admin: 04/12/18 13:32 Dose: 20 mg Haloperidol (Haldol) 3 mg IV NOW ONE Stop: 04/12/18 12:34 Last Admin: 04/12/18 13:28 Dose: 3 mg Sodium Chloride (Normal Saline 0.9%) 1,000 mls @ 1,000 mls/hr IV BOLUS ONE Stop: 04/12/18 13:32 Last Admin: 04/12/18 13:27 Dose: 1,000 mls/hr Sodium Chloride (Normal Saline 0.9%) 1,000 mls @ 1,000 mls/hr IV BOLUS ONE Stop: 04/12/18 15:09 Vital Signs - 8 hr 04/12/18 12:30 04/12/18 12:49 04/12/18 13:30 Pulse Rate 105 H 105 H Respiratory Rate 18 18 Blood Pressure [Left Arm] 155/108 H 145/75 H Pulse Oximetry 99 99 MDM - Abdominal Pain Lab Data Result diagrams: 04/12/18 13:18 04/12/18 13:18 Lab Results 04/12/18 04/12/18 04/12/18 Range/Units 13:18 13:18 13:18 WBC 20.9 H (4.5-11.0) X10^3/uL RBC 5.17 (4.0-5.2) X10^6/uL Hgb 16.1 H (12.0-16.0) g/dL Hct 47.5 H (36-46) % MCV 91.9 (80-100) fL MCH 31.1 (26-34) PG MCHC 33.8 (30-36) % RDW 13.3 (11.6-14.8) % Plt Count 387 (150-400) X10^3/uL Neut % (Auto) 88.6 H (50-75) % Lymph % (Auto) 8.0 L (25-40) % [facility] % (Auto) 3.0 (3-14) % Eos % (Auto) 0.0 L (2-4) % Baso % (Auto) 0.4 (0-2) % Neut # (Auto) 37724 H (8529-1141) /uL Sodium 137 (137-145) mmol/L Potassium 3.5 (3.4-5.1) mmol/L Chloride 95 L (98-107) mmol/L Carbon Dioxide 26 (22-32) mmol/L BUN 18 H (7-17) mg/dL Creatinine 1.00 (0.52-1.04) mg/dL Estimated GFR 58.9 L (>60) mL/min BUN/Creatinine Ratio 18.0 (6-22) Glucose 233 H (70-100) mg/dL Lactate (0.7-2.1) mmol/L Calcium 9.8 (8.4-10.2) mg/dL Total Bilirubin 0.8 (0.2-1.3) mg/dL AST 28 (14-36) IU/L ALT 24 (9-52) IU/L Alkaline Phosphatase 98 (38-126) U/L Total Protein 8.8 H (6.3-8.2) g/dL Albumin 4.8 (3.5-5.0) g/dL Globulin 4.0 (1.7-4.1) g/dL Albumin/Globulin Ratio 1.2 (1.0-2.8) Lipase 99 (23-300) U/L Procalcitonin 0.10 (<0.5) ng/mL 04/12/18 Range/Units 13:18 WBC (4.5-11.0) X10^3/uL RBC (4.0-5.2) X10^6/uL Hgb (12.0-16.0) g/dL Hct (36-46) % MCV (80-100) fL MCH (26-34) PG MCHC (30-36) % RDW (11.6-14.8) % Plt Count (150-400) X10^3/uL Neut % (Auto) (50-75) % Lymph % (Auto) (25-40) % [facility] % (Auto) (3-14) % Eos % (Auto) (2-4) % Baso % (Auto) (0-2) % Neut # (Auto) (2197-4932) /uL Sodium (137-145) mmol/L Potassium (3.4-5.1) mmol/L Chloride (98-107) mmol/L Carbon Dioxide (22-32) mmol/L BUN (7-17) mg/dL Creatinine (0.52-1.04) mg/dL Estimated GFR (>60) mL/min BUN/Creatinine Ratio (6-22) Glucose (70-100) mg/dL Lactate 1.5 (0.7-2.1) mmol/L Calcium (8.4-10.2) mg/dL Total Bilirubin (0.2-1.3) mg/dL AST (14-36) IU/L ALT (9-52) IU/L Alkaline Phosphatase (38-126) U/L Total Protein (6.3-8.2) g/dL Albumin (3.5-5.0) g/dL Globulin (1.7-4.1) g/dL Albumin/Globulin Ratio (1.0-2.8) Lipase (23-300) U/L Procalcitonin (<0.5) ng/mL Discharge Plan Departure Prescriptions: No Action [Custom Inserts] Qty: 6 RF: 0 fluticasone [Flovent HFA] 10.6 GM HFA aerosol inhaler 1 - 2 puff INH Q12H Qty: 1 RF: 3 albuterol sulfate [Proventil HFA] 90 MCG/PUFF HFA aerosol inhaler 2 puff INH Q4-6H Qty: 1 RF: 3 Glucose: Home Monitoring Kit Qty: 1 RF: 0 [METOCLOPRAMIDE HCL ] 5 mg PO PRN PRNQty: 0 RF: 0 ondansetron 4 MG tablet,disintegrating 4 mg PO Q8HP PRNQty: 0 RF: 0 rabeprazole 20 MG tablet,delayed release (DR/EC) 20 mg PO BID Qty: 60 RF: 3 gabapentin [Neurontin] 300 MG capsule 300 - 600 mg PO HS Qty: 180 RF: 0 metformin [Glucophage] 500 MG tablet 500 mg PO BIDCC Qty: 180 RF: 3 lisinopril 2.5 MG tablet 2.5 mg PO QDAY Qty: 90 RF: 3 Glucose: Test Strips BID Qty: 180 RF: 6 fluconazole [Diflucan] 150 MG tablet 150 mg PO ONCE Qty: 2 RF: 1 insulin glargine [Lantus Solostar U-100 Insulin] 100 UNIT/1 ML insulin pen 60 - 80 unit SQ BID 90 Days Qty: 0 RF: 3 Diabetic shoes & Inserts&Guantlets Qty: 1 RF: 0 pen needle, diabetic [Comfort EZ Pen [place]] 31 gauge x 5/16 needle .ROUTE .MEDSUPPLY Qty: 100 RF: 0 metronidazole [Flagyl] 500 mg tablet 500 mg PO TID 10 Days Qty: 30 RF: 0 ciprofloxacin HCl [Cipro] 500 mg tablet 500 mg PO BID 10 Days Qty: 20 RF: 0
[2018-04-12 16:15] VITALS: BP 134/76; PULSE 72; RESP 15; TEMP 36.9; O2SAT 99
== END 2018-04-12 16:17 | disposition home or self-care (01) ==
PROVIDERS: Emergency Provider Emergency Medicine; Family Provider Physician Assistant; PCP Physician Assistant
DX: R19.7 Diarrhea, unspecified (principal)
CPT/HCPCS: 36591; 80053; 81001; 83605; 83690; 84145; 85025; 96361; 96374; 99283; 99284; J1630

== ENCOUNTER → 2018-04-15 12:19 | Outpatient (CLI) | payer SELFPAY | PROVIDERS: Family Provider Physician Assistant; PCP Physician Assistant; Visit Provider Physician Assistant | DX: Z53.8 Procedure and treatment not carried out for other reasons (principal) ==

== ENCOUNTER 2018-04-30 19:23 | Emergency (ER) | payer OTHER, MEDICAID, SELFPAY ==
[2018-04-30 19:45] VITALS: BP 159/79; PULSE 111; RESP 16; TEMP 36.7; O2SAT 99
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
[2018-04-30 21:04] VITALS: BP 162/83; PULSE 107; O2SAT 99
--- NOTE | 2018-05-07 14:53 | CM.SWNOTE ---
[employer]PER[employer] NOTE: LUZ received JENNIFER information that pt was recently in the emergency room. Called pt to inquire if she was in need of any additional resources and if she was following up with her PCP. She informed LUZ that her ankle is still not feeling any better, but she has an appointment tomorrow at 9 AM with her doctor to further evaluate her ankle. Confirmed that PCP is Alexus Fallon MD. Pt declined need for any additional resources at this time. Alina Benjamin, [facility]
== END 2018-04-30 21:05 | disposition home or self-care (01) ==
PROVIDERS: Emergency Provider Emergency Medicine; Family Provider Physician Assistant; PCP Physician Assistant
DX: S40.021A Contusion of right upper arm, initial encounter (principal); V49.50XA Passenger injured in collision with unspecified motor vehicles in traffic accident, initial encounter
CPT/HCPCS: 71045; 73060; 99282; 99283

== ENCOUNTER → 2018-05-06 09:20 | Outpatient (CLI) | payer OTHER, MEDICAID, SELFPAY ==
--- NOTE | 2018-05-06 09:27 | DI.RAD.S_ITS ---
PROCEDURE: XR ANKLE RT MIN 3V INDICATIONS: pain TECHNIQUE: 3 views of the ankle were acquired. COMPARISON: None. FINDINGS: Bones: No fractures or dislocations. Ankle mortise is normally aligned. No suspicious bony lesions. Bone island within the distal tibia. Soft tissues: No tibiotalar joint effusion. Achilles tendon appears normal. IMPRESSION: No acute fracture. No osseous lesion. If symptoms and/or clinical suspicion for pathology persist, further assessment with repeat, or advanced imaging (e.g., CT, MRI, or bone scan) may be helpful for further assessment. Dictated by: Shukri Coon M.D. on 05/06/2018 at 9:43 Approved by: Shukri Coon M.D. on 05/06/2018 at 9:46
== END ==
PROVIDERS: Family Provider Physician Assistant; PCP Physician Assistant
DX: M25.571 Pain in right ankle and joints of right foot (principal)
CPT/HCPCS: 73610

== ENCOUNTER → 2018-08-05 07:33 | Outpatient (CLI) | payer OTHER, MEDICAID, SELFPAY ==
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
== END ==
PROVIDERS: Family Provider Physician Assistant; PCP Physician Assistant; Visit Provider Physician Assistant
DX: S99.911A Unspecified injury of right ankle, initial encounter (principal); M25.471 Effusion, right ankle; M65.871 Other synovitis and tenosynovitis, right ankle and foot; M25.571 Pain in right ankle and joints of right foot
CPT/HCPCS: 73721

== ENCOUNTER → 2018-08-27 10:24 | Outpatient (CLI) | payer OTHER, MEDICAID, SELFPAY ==
[2018-08-27 10:56] LABS: Add Manual Diff / Slide Review NO; Basophils Percent Auto 0.3 % (0-2); Eosinophils Percent Auto 1.8 % (2-4); Hemoglobin 13.4 g/dL (12.0-16.0); Lymphocytes Percent Auto 25.9 % (25-40); Mean Corpuscular HGB Conc 33.5 % (30-36); Mean Corpuscular Hemoglobin 31.4 PG (26-34); Mean Corpuscular Volume 93.6 fL (80-100); Neutrophils Absolute Auto 8000 /uL (3000-5900); Platelet Count 297 X10^3/uL (150-400); Red Blood Cell Count 4.28 X10^6/uL (4.0-5.2); Red Cell Distribution Width 13.3 % (11.6-14.8); White Blood Cell Count 11.7 X10^3/uL (4.5-11.0)
[2018-08-27 11:31] LABS: HEMOLYSIS < 15 (0-50); Iron 103 ug/dL (37-170)
[2018-08-27 11:37] LABS: BUN Creatinine Ratio 23.3 (6-22); Blood Urea Nitrogen 21 mg/dL (7-17); Calcium 9.1 mg/dL (8.4-10.2); Carbon Dioxide 28 mmol/L (22-32); Chloride 102 mmol/L (98-107); Cholesterol 227 mg/dL (140-199); Estimated Glomerular Filt Rate > 60.0 mL/min (>60); Glucose 81 mg/dL (70-100); HDL Cholesterol 48 mg/dL (40-60); HEMOLYSIS < 15 (0-50); LDL Cholesterol Calculated 143 mg/dL (<100); Potassium 4.6 mmol/L (3.4-5.1); Sodium 142 mmol/L (137-145); Triglycerides 181 mg/dL (35-150)
[2018-08-27 11:38] LABS: Creatinine Urine Random 76.5 mg/dL
[2018-08-27 11:42] LABS: Microalbumin Urine Random 12.7 mg/dL (0-1.6)
[2018-08-27 11:45] LABS: Percent Iron Saturation 34 % (15-50); Total Iron Binding Capacity 305 ug/dL (265-497); Transferrin 260 mg/dL (206-381)
[2018-08-27 12:04] LABS: Thyroid Stimulating Hormone 2.52 uIU/mL (0.47-4.68)
[2018-08-27 12:26] LABS: Hemoglobin A1C% w Est Avg Glu 7.1 % (4.0-6.0)
== END ==
PROVIDERS: PCP Physician Assistant; Visit Provider Physician Assistant
DX: K52.9 Noninfective gastroenteritis and colitis, unspecified (principal); R10.13 Epigastric pain; R19.7 Diarrhea, unspecified; R53.83 Other fatigue; E11.65 Type 2 diabetes mellitus with hyperglycemia; E11.8 Type 2 diabetes mellitus with unspecified complications; E66.9 Obesity, unspecified; G62.9 Polyneuropathy, unspecified; Z79.4 Long term (current) use of insulin
CPT/HCPCS: 36415; 80048; 80061; 82043; 82570; 83036; 83540; 83550; 84443; 85025

== ENCOUNTER → 2018-11-06 12:20 | Outpatient (CLI) | payer OTHER, MEDICAID, SELFPAY ==
--- NOTE | 2018-11-06 12:22 | DI.US.S_ITS ---
PROCEDURE: US PELVIC COMPLETE INDICATIONS: EXCESSIVE SWEATING, PELVIC PAIN, HISTORY OF OVARIAN CYSTS TECHNIQUE: Real-time scanning was performed of the pelvic organs, with image documentation. Additional endovaginal scanning was necessary due to incomplete visualization of the adnexal and endometrial structures by transabdominal scanning. COMPARISON: None. FINDINGS: Transabdominal scanning: Limited scanning through the kidneys shows no hydronephrosis. No pathologic free abdominal or pelvic fluid. Endovaginal scanning: Uterus: Uterus is surgically absent. Ovaries: The right ovary measures 3.4 x 4.5 x 3.6 cm and the left measures 2.7 x 2.5 x 4.7 cm. There is a complex avascular likely hemorrhagic cyst at the right ovary that measures up to 3.0 x 2.8 x 2.7 cm and a simple appearing cyst also at the right ovary measuring 3.0 x 2.8 x 2.7 cm. At the left ovary there is a complex avascular cyst likely also hemorrhagic measuring up to 2.0 x 1.2 x 1.5 cm. IMPRESSION: Bilateral complex ovarian cysts, the largest of which measures up to 3.0 cm on the right. The complex cyst on the left measures up to 2 cm. Prior hysterectomy. A followup pelvic ultrasound in 6-8 weeks is recommended given these findings to confirm resolution. Dictated by: Albino Moreau M.D. on 11/06/2018 at 15:16 Approved by: Albino Moreau M.D. on 11/06/2018 at 15:19
== END ==
PROVIDERS: PCP Physician Assistant; Visit Provider Physician Assistant
DX: R10.2 Pelvic and perineal pain (principal); N83.292 Other ovarian cyst, left side; N83.291 Other ovarian cyst, right side; R61 Generalized hyperhidrosis; Z87.42 Personal history of other diseases of the female genital tract; Z90.710 Acquired absence of both cervix and uterus
CPT/HCPCS: 76856

== ENCOUNTER → 2018-12-30 08:35 | Outpatient (CLI) | payer OTHER, MEDICAID, SELFPAY ==
[2018-12-30 10:11] LABS: Hemoglobin A1C% w Est Avg Glu 6.5 % (4.0-6.0)
[2018-12-30 10:51] LABS: Cholesterol 304 mg/dL (140-199); Glucose 134 mg/dL (70-100); HDL Cholesterol 60 mg/dL (40-60); LDL Cholesterol Calculated 202 mg/dL (<100); Triglycerides 210 mg/dL (35-150)
[2018-12-30 11:22] LABS: Carcinoembryonic Antigen 2.2 ng/mL (0.1-3.0)
[2019-01-05 17:03] LABS: Cancer Antigen 125 6 U/mL (0-35)
== END ==
PROVIDERS: PCP Physician Assistant; Referring Provider Obstetrics & Gynecology; Visit Provider Physician Assistant
DX: E11.9 Type 2 diabetes mellitus without complications (principal); E66.9 Obesity, unspecified; N83.299 Other ovarian cyst, unspecified side; Z79.4 Long term (current) use of insulin
CPT/HCPCS: 36415; 80061; 82378; 82947; 83036; 86304

== ENCOUNTER 2019-01-18 08:40 | Day surgery (SDC) | payer OTHER, MEDICAID, SELFPAY ==
[2019-01-14 13:28] VITALS: BMI 32.7
[2019-01-18] VITALS (12 sets, daily range): BP systolic 139–203; BP diastolic 70–105; PULSE 77–95; RESP 15–26; TEMP 36.5–37.6; O2SAT 95–98; BMI 32.7
--- NOTE | 2019-01-18 | PATH_ITS ---
[facility] Accession Number: [id number] . 01 Material submitted: . fallopian tube - BILATERAL FALLOPIAN TUBES AND OVARIES . 02 Diagnosis: Bilateral Fallopian Tubes and Ovaries, Bilateral Salpingo-oophorectomy: 1. Bilateral ovaries with hemorrhagic cystic corpus luteum. 2. 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 3. No evidence of neoplasm. [facility]/01/20/2019 . 02 Electronically signed: . Elizabeth Gonsales MD, Pathologist NPI- [id number] . 01 Gross description: . Received in formalin, labeled bilateral fallopian tubes + ovaries, are two ovaries (ovary #1-3.0 x 1.6 x 1.2 cm; ovary #2-2.8 x 2.0 x 1.6 cm) with attached fimbriated fallopian tubes (tube #1: length-4.0 cm, diameter-0.4 cm; tube #2: length-5.1 cm, diameter-up to 1.5 cm). The ovaries have nloand-yellow smooth shiny flat serosa and noland-white solid firm parenchyma with corpus albicans and corpus luteum identified. Ovary #1 contains a cystic cavity (1.0 x 0.9 x 0.7 cm) filled with clear colorless fluid. The lining is smooth and flat with no excrescences identified. The fallopian tubes have eckert-noland smooth shiny serosa and noland unremarkable lumens. Fallopian tube #2 contains a paratubal cyst (largest dimension-2.5 cm) containing clear colorless fluid. The lining is smooth and flat with no excrescences identified. Section code: (A1) ovary #1, customer service representative serial sections; (A2) ovary #2, customer service representative serial sections; (A3) fallopian tube #1, customer service representative serial sections; (A4) fimbria #1, bivalved, entirely submitted; (A5) fallopian tube #2, customer service representative serial sections; (A6) fimbria #2, bivalved, entirely submitted. ([id number]) /MRV . 02 Pathologist provided ICD-10: N83.10 . 02 CPT . 421168 Performed at: [address] [facility] [address] [place] [address], [place], [place] [id number] MD Clifton Barahona MD Phone: [phone] Performed at: [address] [facility] [id number] [place], [place] [id number] MD Elizabeth Gonsales MD Phone: [phone]
[2019-01-18] MEDS: LACTATED RINGERS 1,000 ML 42 ML IV ×2 (09:52→11:29)
--- NOTE | 2019-01-18 10:22 | PM.PREOP ---
Pre-operative Note Interval Note History & Physical reviewed/Exam performed by Physician: Yes Changes to H&P: No
[2019-01-18] MEDS: ACETAMINOPHEN 325 MG TABLET 975 MG PO (10:31)
[2019-01-18] MEDS: APREPITANT 40 MG CAPSULE PO (10:32)
--- NOTE | 2019-01-18 10:34 | PM.HP.1 ---
History of Present Illness Date Patient Seen: 01/18/19 Time Patient Seen: 10:34 Chief complaint: [id number] Narrative: Patient is a 48-year-old with bilateral ovarian cysts here for a laparoscopic BSO Patient History Medical History (Updated 11/17/18 @ 10:46 by Alexus Fallon PA-C) Diabetes (Acute) Asthma (Chronic) Hyperlipemia (Chronic) Hypertension (Chronic) Scoliosis (Chronic) De Quervain's disease (tenosynovitis) (Resolved) Gastroenteritis (Resolved ~07/2017) Hx of tooth extraction (Resolved) Substance abuse (Resolved) Surgical History (Updated 05/07/18 @ 12:24 by Lily Romero LPN) Hx of surgical procedure (Resolved) Hx of surgical procedure (Resolved) History of tonsillectomy Status post delivery Status post hysterectomy Family History (Updated 05/07/18 @ 12:25 by Lily Romero LPN) Father Heart disease Diabetes mellitus Mother Cancer Brother Diabetes mellitus Social History household members: friend(s) Smoking Status: Former smoker Tobacco: How many years used: 20 second hand exposure: Yes alcohol intake: current substance use type: marijuana Family & Social History Social History: household members friend(s) Tobacco & Substance use: Smoking Status Former smoker alcohol intake current alcohol intake frequency holiday/special occasion Substance Use Type former substance user,marijuana Meds Home Medications Medication Instructions Recorded Confirmed Type [Custom Inserts] units #6 06/11/17 12/30/18 Rx Flovent HFA 1 - 2 puff INH Q12H #1 inh 06/18/17 01/14/19 Rx albuterol sulfate [Proventil HFA] 2 puff INH Q4-6H #1 inh 06/18/17 01/18/19 Rx lisinopril 2.5 mg PO QDAY #90 tab 12/30/17 01/18/19 Rx Diabetic shoes & Inserts&Guantlets #1 ea 02/03/18 12/30/18 Rx insulin glargine (U-100) 100 See Rx Instructions SUBCUT DAILY 08/18/18 01/18/19 History unit/mL (3 mL) subcutaneous pen pen needle, diabetic 31 gauge x #100 each 09/16/18 12/30/18 Rx 02/04 Michele Matrix Test Strips #100 each 10/15/18 12/30/18 Rx Michele-Matrix Glucometer #1 ea 10/15/18 12/30/18 Rx Allergies Allergy/AdvReac Type Severity Reaction Status Date / Time codeine [CODEINE] Allergy Severe HIVES AND Verified 01/18/19 09:47 ITCHING ibuprofen [IBUPROFEN] Allergy Severe SEVERE Verified 01/18/19 09:47 ABDOMINAL PAIN AND OTHER STOMACH ISSUES morphine [MORPHINE] Allergy Severe BURNING, Verified 01/18/19 09:47 REDNESS Sulfa (Sulfonamide Allergy Severe HIVES Verified 01/18/19 09:47 Antibiotics) [SULFA (SULFONAMIDE ANTIBIOTICS)] hydrocodone [HYDROCODONE] Allergy Intermediate ITCHING Verified 01/18/19 09:47 doxycycline [DOXYCYCLINE] AdvReac Intermediate reaction Verified 01/18/19 09:47 to sunlight-burning ketorolac [From TORADOL] AdvReac Intermediate vomiting Verified 01/18/19 09:47 nitrofurantoin AdvReac Mild NAUSEA AND Verified 01/18/19 09:47 [NITROFURANTOIN] VOMITING Exam Vital Signs (past 8 hours): - 01/18/19 09:45 Temperature 99.5 F Pulse Rate 86 Respiratory Rate 18 Blood Pressure 155/79 H Pulse Oximetry 98 Oxygen Delivery Method Room Air Narrative Exam Narrative: HEENT: No thyromegaly, no anterior cervical or supraclavicular lymphadenopathy. Lungs:Clear to auscultation bilaterally, no wheezes. Cardiovascular: Regular rate and rhythm, no murmurs, rubs, or gallops. Abdomen: Well-healed scars. No hepatosplenomegaly. No masses palpable. External genitalia: Normal Vagina: Normal Cervix: Absent Bimanual exam: No masses palpable or tenderness Rectal: No masses. Assessment & Plan Assessment & Plan narrative: Assessment: 48-year-old with bilateral ovarian cyst Plan: Laparoscopic BSO The risks, benefits, and alternatives to the procedure were explained to the patient. The risks including bleeding, infection, injury to the bowel, bladder, or ureters. She understands these risks and agrees to proceed. A full PAR-Q was held and consent form was signed. Time Spent With Patient Time with patient: 15-24 minutes
--- NOTE | 2019-01-18 11:07 | SUR.OPER ---
Lithotomy on padded OR bed, head on pillow, arms secured on padded arm boards at <90 degrees abduction. Legs secured in padded yellow fins stirrups.
[2019-01-18] MEDS: BUPIVACAINE 0.5% W/ EPI (PF) VIAL 30 ML INJ (11:13)
--- NOTE | 2019-01-18 11:15 | SUR.OPER ---
GLASSES IN LABELED CASE TO PACU WITH PATIENT.
[2019-01-18] MEDS: HYDROMORPHONE 2 MG INJ 1 MG IV (12:05)
[2019-01-18] MEDS: HYDROMORPHONE 2 MG INJ 0.5 MG IV ×2 (12:10→12:15)
[2019-01-18] MEDS: METOCLOPRAMIDE 10 MG/2 ML INJ IV (12:32)
--- NOTE | 2019-01-18 12:41 | SUR.PHASEII ---
pt resting quietly, denies need for pain medication, denies any more nausea, states she is sleepy, tolerating small sips of nasreen justina, sister is at bedside with pt.
--- NOTE | 2019-01-18 14:55 | SUR.PHASEII ---
PT UP TO BR TO VOID PRIOR TO D/C, PT HAD EMESIS WHILE IN BR, PT STATES SHE IS BETTER NOW AND WANTS TO GO HOME. INSTRUCTIONS REVIEWED WITH PT AND HER SISTER WITH VERBALIZED UNDERSTANDING, VSS. IV D/C'D. ABDOMONAL DRESSINGS REMAIN DRY AND INTACT.
--- NOTE | 2019-01-28 18:09 | P.OP_ITS ---
Operative Date/Time/Diagnoses Date of procedure: 01/18/19 Time of procedure: 11:50 Pre-op diagnosis: Bilateral ovarian masses Post-op diagnosis: same Procedure: Procedures Operation Date: 01/18/19 10:00 Actual Procedures Side Surgeon p Laparoscopic BILATERAL Salpingoophorectomy Bilateral Emelia Genao MD Indications: Bilateral ovarian masses Surgeon: Emelia Genao Anesthesia Type: General Operative Notes Findings: Normal ovaries Normal liver, gallbladder and appendix Bilateral hydrosalpinx Closure Type: primary Specimen(s): left tube & ovary and right tube & ovary Applied: catheter Estimated blood loss (mL): 7 Blood products transfused: none Procedure in detail: After informed consent was obtained, the patient was taken to the operating room where she was placed in the dorsal supine position. After adequate general endotracheal anesthesia was achieved, she was placed in the dorsal lithotomy position, and prepped and draped in the usual sterile fashion. A time-out was performed. A moistened sponge stick was placed into the vagina. Attention was then turned to the abdomen where 6 cc of 0.5% Marcaine with epinephrine were injected in the umbilical fold. A 5 mm incision was made. A Veress needle was placed into the peritoneal cavity, and its placement confirmed by aspiration drop test. The abdominal cavity was insufflated with 4.3 L of CO2. The Veress needle was removed, and a 5 mm trocar was placed without difficulty. additional inspection of the pelvis and abdomen revealed the findings noted above. Two other 5 mm trocars were placed after 6 cc of 0.5% Marcaine with epinephrine were injected, 4 cm lateral to the midline, midway between the pubic symphysis and umbilicus. Two 5 mm trocars were placed under direct visualization. The right tube and ovary were grasped with an atraumatic grasper. Using the Endo Dali, the adhesions were taken down between the sidewall and the right tube and ovary. With care to avoid the ureter, the infundibulopelvic ligament on the right side was cauterized and cut and the tube and ovary were placed into the cul-de-sac. This was repeated on the patient's left side. Hemostasis was achieved. A 4th incision was made above the pubic symphysis, 10 mm, after 6 cc of 0.5% Marcaine with epinephrine were injected. An 11 mm trocar was placed. The endobag was placed through the suprapubic trocar. The tubes and ovaries were placed into the endobag and were removed through the suprapubic incision. The pelvis and abdomen were examined and were found to be hemostatic. The instruments were removed from the abdomen. The CO2 was allowed to escape. The trocars were removed. The suprapubic incision was closed on the fascia with 0 Vicryl. All of the incisions were closed with 4 0 undyed Vicryl in a subcuticular fashion. Steri-Strips, 2 x 2, and op site were placed. The moistened sponge stick was removed from the vagina. Sponge, lap, and instrument counts were correct x2. The patient tolerated the procedure well, and was taken to PACU in stable c ondition. Complications: none Post-operative Condition: stable Disposition: PACU Plan for aftercare: Home after recovery
== END 2019-01-18 14:50 | disposition home or self-care (01) ==
PROVIDERS: PCP Physician Assistant; Visit Provider Obstetrics & Gynecology
PROC: 0UT24ZZ Resection of Bilateral Ovaries, Percutaneous Endoscopic Approach (ICD-10-PCS; CPT 58661; principal; 2019-01-18 10:00)
DX: N83.10 Corpus luteum cyst of ovary, unspecified side (principal); N83.8 Other noninflammatory disorders of ovary, fallopian tube and broad ligament; N94.89 Other specified conditions associated with female genital organs and menstrual cycle; E11.9 Type 2 diabetes mellitus without complications; J45.909 Unspecified asthma, uncomplicated; E78.5 Hyperlipidemia, unspecified; I10 Essential (primary) hypertension; Z79.4 Long term (current) use of insulin
CPT/HCPCS: 58661; 88305; J0330; J1170; J2250; J2405; J2704; J2765; J3010; J8501

== ENCOUNTER → 2019-04-20 10:12 | Outpatient (CLI) | payer OTHER, MEDICAID, SELFPAY ==
[2019-04-20 11:44] LABS: BUN Creatinine Ratio 16.7 (6-22); Blood Urea Nitrogen 15 mg/dL (7-17); Calcium 10.8 mg/dL (8.4-10.2); Carbon Dioxide 27 mmol/L (22-32); Chloride 102 mmol/L (98-107); Estimated Glomerular Filt Rate > 60.0 mL/min (>60); Glucose 231 mg/dL (70-100); HEMOLYSIS < 15 (0-50); Magnesium 1.6 mg/dL (1.6-2.3); Sodium 141 mmol/L (137-145)
[2019-04-20 12:18] LABS: Potassium 5.8 mmol/L (3.4-5.1)
== END ==
PROVIDERS: PCP Physician Assistant; Visit Provider Physician Assistant
DX: E11.9 Type 2 diabetes mellitus without complications (principal); R25.2 Cramp and spasm
CPT/HCPCS: 36415; 80048; 83735

== ENCOUNTER → 2019-08-13 07:50 | Outpatient (CLI) | payer OTHER, MEDICAID, SELFPAY ==
[2019-08-13 09:24] LABS: Blood Urea Nitrogen 18 mg/dL (7-17); Carbon Dioxide 25 mmol/L (22-32); Chloride 104 mmol/L (98-107); Estimated Glomerular Filt Rate > 60.0 mL/min (>60); Glucose 111 mg/dL (70-100); HEMOLYSIS < 15 (0-50); Potassium 5.2 mmol/L (3.4-5.1); Sodium 139 mmol/L (137-145)
[2019-08-17 16:10] LABS: Ionized Calcium 5.1 mg/dL (4.8-5.6)
[2019-08-17 16:15] LABS: Parathyroid Hormone Int 42 pg/mL (14-64)
== END ==
PROVIDERS: PCP Physician Assistant; Visit Provider Physician Assistant
DX: E83.52 Hypercalcemia (principal); E87.5 Hyperkalemia
CPT/HCPCS: 36415; 80048; 82330; 83970

== ENCOUNTER 2019-10-16 19:54 | Emergency (ER) | payer OTHER, MEDICAID, SELFPAY ==
[2019-10-16 20:22] VITALS: BP 132/70; PULSE 97; RESP 18; TEMP 36.9; O2SAT 98; BMI 35.2
--- NOTE | 2019-10-16 20:25 | ED_ITS ---
HPI - Extremity Injury (Lower) General Chief Complaint: Extremity Injury, Lower Stated Complaint: Fell And Hurt Left Knee Time Seen by Provider: 10/16/19 20:25 Source: patient Mode of arrival: Ambulatory Limitations: no limitations History of Present Illness HPI Narrative: 49-year-old female here for evaluation of left knee injury. Patient states that 1 week ago she fell landing with her left knee bent since then she has had pain in left knee however she has been able to walk. Has not seen her primary doctor regarding it. She states that today she was squatting down talking with her granddaughter and had a sudden pain on the inside of her left knee and had a very difficult time standing. Since that event she has been able to walk but is much more painful than normal. Related Data Home Medications Medication Instructions Recorded Confirmed ondansetron 4 mg disintegrating 4 mg PO Q8H PRN 04/20/19 08/16/19 tablet Previous Rx's Medication Instructions Recorded [Custom Inserts] units #6 06/11/17 Flovent HFA 1 - 2 puff INH Q12H #1 inh 06/18/17 albuterol sulfate [Proventil HFA] 2 puff INH Q4-6H #1 inh 06/18/17 Diabetic shoes & Inserts&Guantlets #1 ea 02/03/18 pen needle, diabetic 31 gauge x #100 each 03/09/1902/04 blood sugar diagnostic #300 each 04/02/19 insulin glargine 100 unit/mL (3 40 unit SUBCUT BID 90 Days #72 ml 06/21/19 mL) subcutaneous pen estradiol 1 mg tablet 1 mg PO DAILY #90 tab 08/16/19 lisinopril 2.5 mg tablet 2.5 mg PO QDAY #90 tab 08/16/19 oxycodone-acetaminophen 5 mg-325 1 tab PO .HS PRN #45 tab 08/16/19 mg tablet atorvastatin 20 mg tablet 20 mg PO BEDTIME #90 tab 09/27/19 Allergies Allergy/AdvReac Type Severity Reaction Status Date / Time codeine [CODEINE] Allergy Severe HIVES AND Verified 10/16/19 20:22 ITCHING ibuprofen [IBUPROFEN] Allergy Severe SEVERE Verified 10/16/19 20:22 ABDOMINAL PAIN AND OTHER STOMACH ISSUES morphine [MORPHINE] Allergy Severe BURNING, Verified 10/16/19 20:22 REDNESS Sulfa (Sulfonamide Allergy Severe HIVES Verified 10/16/19 20:22 Antibiotics) [SULFA (SULFONAMIDE ANTIBIOTICS)] hydrocodone [HYDROCODONE] Allergy Intermediate ITCHING Verified 10/16/19 20:22 venlafaxine AdvReac Severe Depression Verified 10/16/19 20:22 and suicidal thoughts doxycycline [DOXYCYCLINE] AdvReac Intermediate reaction Verified 10/16/19 20:22 to sunlight-burning ketorolac [From TORADOL] AdvReac Intermediate vomiting Verified 10/16/19 20:22 tramadol AdvReac Intermediate Nausea and Verified 10/16/19 20:22 vomiting nitrofurantoin AdvReac Mild NAUSEA AND Verified 10/16/19 20:22 [NITROFURANTOIN] VOMITING Review of Systems Constitutional Constitutional: Denies fever(s) Respiratory Respiratory: Denies cough Gastrointestinal Gastrointestinal: Denies abdominal pain Musculoskeletal Comments: Left knee pain Integumentary/Breasts Skin/Breast: Denies lesions and Denies rash Neurologic Neurologic: Denies behavioral changes Psychiatric Psychiatric: Denies behavioral changes Hematologic/Lymphatic Hematologic/Lymphatic: Denies easy bleeding and Denies easy bruising Patient History Medical History Asthma (Chronic) De Quervain's disease (tenosynovitis) (Resolved) Diabetes (Acute) Gastroenteritis (Resolved ~07/2017) Hyperlipemia (Chronic) Hypertension (Chronic) Scoliosis (Chronic) Substance abuse (Resolved) Social History household members: friend(s) Smoking Status: Former smoker Tobacco: How many years used: 20 second hand exposure: Yes alcohol intake: current (occasionally during holidays.) substance use type: marijuana Smoking Status: Former smoker alcohol intake frequency: holidays/special occasions only Substance Use Type: former substance user and marijuana Exam Initial Vital Signs Initial Vital Signs: Vital Signs Temperature 98.4 F 10/16/19 20:22 Pulse Rate 97 H 10/16/19 20:22 Respiratory Rate 18 10/16/19 20:22 Blood Pressure 132/70 10/16/19 20:22 Pulse Oximetry 98 10/16/19 20:22 Const General: cooperative and comfortable Cardio Pulses: dorsalis pedis present on the left Skin Lesions: no lesions Rashes: no rashes Neuro General: alert and awake Cognition: normal cognition Speech: speech normal Extrem General: normal to inspection, capillary refill normal and no pedal edema Other: Patient able to do straight leg raise the left. Flex and extend at the ankle. Flex and extend at the knee. Tenderness along the medial aspect of the knee in the medial joint line. No hamstring tenderness. No patellar quadriceps tenderness. No deficits noted in these areas. No fibular head tenderness. Course Orders Ordered: ED Orders 10/16/19 20:25 XR knee LT 3V Stat Vital Signs Vital signs: Vital Signs - 8 hr 10/16/19 20:22 10/16/19 21:24 Temperature 98.4 F Pulse Rate 97 H 88 Respiratory Rate 18 Blood Pressure 132/70 Blood Pressure [Left Arm] 133/75 Pulse Oximetry 98 97 MDM - Extremity Injury (Lower) Imaging Data Chest x-ray: Radiologist's Impression: [address] [address] XRay Report Signed Patient: Michaela Zaman [facility]#: [id number] : 1970Acct:[id number] Age/Sex: 49 / FDate of Service: 10/16/19 Loc: ED Accession Number: [id number] Procedure: XR knee LT 3V Ordering Provider: Mahin Chin D.O. PROCEDURE: XR KNEE LT 3V INDICATIONS: KNEE PAIN TECHNIQUE: 3 views of the knee were acquired. COMPARISON: None. FINDINGS: Bones: No fractures or dislocations. No suspicious bony lesions. Soft tissues: Mild joint effusion. No suspicious soft tissue calcifications. IMPRESSION: Mild effusion. No visualized acute fracture or dislocation. However, if clinical concern and/or pain persist, short interval imaging followup in 7-10 days is recommended, as occult injury cannot be definitively excluded. Dictated by: Margarita Teran M.D. on 10/16/2019 at 21:00 Approved by: Margarita Teran M.D. on 10/16/2019 at 21:01 [facility] Narrative Medical decision making narrative: Neurovascularly intact. X-ray showed no signs of fracture. Tenderness to palpation along the medial joint line. Suspect soft tissue injury. She was given an Galen bandage for comfort. Instructed to contact her primary doctor on Friday to discuss the indications for an MRI which I suspect that she would probably benefit from for definitive diagnosis. She was given return precautions and follow-up instructions. She expressed understanding and agreement plan. Discharge Plan Departure Patient Disposition: Home Clinical Impression: Left knee sprain Qualifiers: Encounter type: initial encounter Involved ligament of knee: unspecified ligament Qualified Code(s): S83.92XA - Sprain of unspecified site of left knee, initial encounter Discharge Date/Time: 10/16/19 21:35 Instructions: How To Perform RICE (Rest, Ice, Compress, Elevate), DI for Knee Pain, How to Apply an Elastic Wrap on Knee Activity Restrictions/Additional Instructions: You can use the Galen bandage or a knee brace as needed. Avoid activities that make her symptoms worse. On Friday contact your primary provider for follow-up and to discuss the indications for an MRI. Return to the emergency department for any new or worsening symptoms Prescriptions: No Action [Custom Inserts] Qty: 6 RF: 0 Flovent HFA 10.6 GM HFA aerosol inhaler 1 - 2 puff INH Q12H Qty: 1 RF: 3 albuterol sulfate [Proventil HFA] 90 MCG/PUFF HFA aerosol inhaler 2 puff INH Q4-6H Qty: 1 RF: 3 (DME) Diabetic shoes & Inserts&Guantlets Qty: 1 RF: 0 (DME) FreeStyle Test strip See Dose Instructions .ROUTE .MEDSUPPLY Qty: 300 RF: 3 Lantus Solostar U-100 Insulin 100 unit/mL (3 mL) insulin pen 40 unit SUBCUT BID 90 Days Qty: 72 RF: 3 atorvastatin 20 mg tablet 20 mg PO BEDTIME Qty: 90 RF: 3 (DME) pen needle, diabetic [Comfort EZ Pen [place]] 31 gauge x 5/16 needle See Dose Instructions .ROUTE .MEDSUPPLY Qty: 100 RF: 1 lisinopril 2.5 mg tablet 2.5 mg PO QDAY Qty: 90 RF: 3 oxycodone-acetaminophen 5-325 mg tablet 1 tab PO .HS PRN (Reason: pain) Qty: 45 RF: 0 estradiol 1 mg tablet 1 mg PO DAILY Qty: 90 RF: 3 ondansetron 4 mg tablet,disintegrating 4 mg PO Q8H PRN (Reason: nausea and vomiting) RF: 0 Referrals: Alexus Fallon PA-C [Primary Care Provider] -
[2019-10-16 21:24] VITALS: BP 133/75; PULSE 88; O2SAT 97
== END 2019-10-16 21:35 | disposition home or self-care (01) ==
PROVIDERS: Emergency Provider Emergency Medicine; PCP Physician Assistant
DX: S83.92XA Sprain of unspecified site of left knee, initial encounter (principal); W19.XXXA Unspecified fall, initial encounter
CPT/HCPCS: 73562; 99283

== ENCOUNTER → 2019-10-21 19:40 | Outpatient (CLI) | payer OTHER, MEDICAID, SELFPAY ==
--- NOTE | 2019-10-21 19:42 | DI.MRI.S_ITS ---
PROCEDURE: MR KNEE LT WO CON INDICATIONS: Injury to left knee - possible meniscal tear TECHNIQUE: Noncontrast sagittal PD fast spin echo and T2 fast spin echo with fat saturation, sagittal 3-D FLASH with fat saturation; coronal T1 spin echo and PD fast spin echo with fat saturation, and axial PD fast spin echo with fat saturation through the knee. COMPARISON: [facility], CR, XR KNEE LT 3V, 10/16/2019, 20:23. FINDINGS: Image quality: Excellent. Menisci: Linear oblique high T2 signal intensity traverses the posterior horn medial meniscus, demonstrating inferior and superior articular surface extension. Mild medial extrusion of the medial meniscus is present. Lateral meniscus is intact. Cruciate ligaments: The anterior and posterior cruciate ligaments appear intact. Medial structures: The medial collateral ligament appears intact. Visualized portions of the pes anserinus tendons appear normal. No abnormal bursal fluid. Lateral structures: The lateral collateral ligament, long and short heads of the biceps femoris tendon appear intact. The popliteus tendon appears normal. Iliotibial band appears normal. Anterior structures: The quadriceps and patellar tendons appear intact. Patellar alignment is normal. No femoral trochlear dysplasia or ventral trochlear prominence. No edema in the infrapatellar fat pad. There is moderate prepatellar subcutaneous T2 signal elevation. Bones and cartilage: No bone marrow contusions or fractures. There is mild diffuse articular cartilage loss overlying the weightbearing aspects of the medial femoral condyle and medial tibial plateau. Articular cartilage fissuring involves the lateral patellar facet. Joint space: There is a moderate knee joint effusion. No Brown's cyst. Normal appearing synovial plicae are incidentally noted. IMPRESSION: 1. Medial meniscal tear. 2. Prepatellar bursitis. 3. Medial and patellofemoral compartment articular cartilage loss. Dictated by: Shukri Coon M.D. on 10/22/2019 at 8:53 Approved by: Shukri Coon M.D. on 10/22/2019 at 8:57
== END ==
PROVIDERS: PCP Physician Assistant; Visit Provider Physician Assistant
DX: S83.242A Other tear of medial meniscus, current injury, left knee, initial encounter (principal); M70.42 Prepatellar bursitis, left knee; X58.XXXA Exposure to other specified factors, initial encounter
CPT/HCPCS: 73721

== ENCOUNTER → 2020-05-12 07:03 | Outpatient (CLI) | payer OTHER, MEDICAID, SELFPAY ==
[2020-05-12 09:02] LABS: Hematocrit 40.8 % (36-46); Hemoglobin 13.6 g/dL (12.0-16.0); Mean Corpuscular HGB Conc 33.3 % (30-36); Mean Corpuscular Hemoglobin 31.2 PG (26-34); Mean Corpuscular Volume 93.7 fL (80-100); Platelet Count 288 X10^3/uL (150-400); Red Blood Cell Count 4.35 X10^6/uL (4.0-5.2); Red Cell Distribution Width 12.6 % (11.6-14.8); White Blood Cell Count 7.5 X10^3/uL (4.5-11.0)
[2020-05-12 09:26] LABS: Alanine Aminotransferase 20 IU/L (<35); Albumin 4.4 g/dL (3.5-5.0); Albumin Globulin Ratio 1.2 (1.0-2.8); Alkaline Phosphatase 95 U/L (38-126); Aspartate Aminotransferase 31 IU/L (14-36); BUN Creatinine Ratio 13.1 (6-22); Bilirubin Total 0.7 mg/dL (0.2-1.3); Blood Urea Nitrogen 11 mg/dL (7-17); Calcium 9.2 mg/dL (8.4-10.2); Carbon Dioxide 20 mmol/L (22-32); Chloride 106 mmol/L (98-107); Cholesterol 211 mg/dL (140-199); Estimated Glomerular Filt Rate > 60.0 mL/min (>60); Globulin 3.6 g/dL (1.7-4.1); Glucose 177 mg/dL (70-100); HDL Cholesterol 56 mg/dL (40-60); HEMOLYSIS < 15 (0-50); LDL Cholesterol Calculated 119 mg/dL (<100); Potassium 4.4 mmol/L (3.4-5.1); Sodium 137 mmol/L (137-145); Triglycerides 181 mg/dL (35-150)
[2020-05-12 09:57] LABS: TSH w/ Reflex to FT4 6.28 uIU/mL (0.47-4.68)
[2020-05-12 10:22] LABS: Free T4, Direct Thyroxine 1.16 ng/dL (0.78-2.19)
== END ==
PROVIDERS: PCP Nurse Practitioner Family; Referring Provider Nurse Practitioner Family; Visit Provider Nurse Practitioner Family
DX: E11.9 Type 2 diabetes mellitus without complications (principal); Z13.6 Encounter for screening for cardiovascular disorders; L65.9 Nonscarring hair loss, unspecified
CPT/HCPCS: 36415; 80053; 80061; 83036; 84439; 84443; 85027

== ENCOUNTER → 2020-06-19 16:05 | Outpatient (CLI) | payer OTHER, MEDICAID, SELFPAY ==
--- NOTE | 2020-06-19 16:10 | DI.RAD.S_ITS ---
PROCEDURE: XR ELBOW RT MIN 3V INDICATIONS: chronic right elbow pain, worse over last two months TECHNIQUE: 3 views of the elbow were acquired. COMPARISON: None. FINDINGS: Bones: No fractures or dislocations. No suspicious bony lesions. 3 mm osseous focus involving the lateral condyle, possibly spur raising possibility of chronic lateral epicondylitis syndrome which could be better assessed with dedicated MRI. Proximal ulnar spurring. Soft tissues: No elbow joint effusion. No suspicious soft tissue calcifications. IMPRESSION: Small osseous irregularity in the region of the lateral epicondyle raising possibility of chronic tendinopathy. If the patient's pain or other symptoms persist, consider further evaluation with MRI Dictated by: Sina Alfaro M.D. on 06/19/2020 at 17:04 Approved by: Sina Alfaro M.D. on 06/19/2020 at 17:07
== END ==
PROVIDERS: PCP Nurse Practitioner Family; Referring Provider Nurse Practitioner Family; Visit Provider Nurse Practitioner Family
DX: M25.521 Pain in right elbow (principal)
CPT/HCPCS: 73080

== ENCOUNTER 2020-07-11 16:16 | Emergency (ER) | payer OTHER, MEDICAID, SELFPAY ==
[2020-07-11] VITALS (8 sets, daily range): BP systolic 163–191; BP diastolic 73–96; PULSE 108–123; RESP 20; TEMP 37.5; O2SAT 94–98; BMI 35.4
--- NOTE | 2020-07-11 17:00 | DI.RAD.S_ITS ---
PROCEDURE: XR CHEST 1V INDICATIONS: suspected sepsis TECHNIQUE: One view of the chest was acquired. COMPARISON: [facility], CR, XR CHEST 1V, 04/30/2018, 20:08. FINDINGS: Surgical changes and devices: None. Lungs and pleura: Lungs are clear. No pleural effusions or pneumothorax. Mediastinum: Mediastinal contours appear normal. Heart size is normal. Bones and chest wall: No suspicious bony lesions. Overlying soft tissues appear unremarkable. IMPRESSION: No acute cardiopulmonary pathology. Dictated by: Pete Fields M.D. on 07/11/2020 at 16:33 Approved by: Pete Fields M.D. on 07/11/2020 at 16:33
[2020-07-11] MEDS: SODIUM CHLORIDE 0.9% 1,000 ML 1000 ML IV (17:05)
[2020-07-11 17:19] LABS: Add Manual Diff / Slide Review NO; Basophils Absolute Auto 0 /uL (0-100); Basophils Percent Auto 0.5 % (0-2); Eosinophils Absolute Auto 0 /uL (0-450); Eosinophils Percent Auto 0.4 % (2-4); Hematocrit 40.4 % (36-46); Hemoglobin 13.6 g/dL (12.0-16.0); Lymphocytes Absolute Auto 1500 /uL (1100-4500); Lymphocytes Percent Auto 15.3 % (25-40); Mean Corpuscular HGB Conc 33.7 % (30-36); Mean Corpuscular Volume 92.1 fL (80-100); Monocytes Absolute Auto 600 /uL (0-900); Monocytes Percent Auto 5.9 % (3-14); Neutrophils Absolute Auto 7500 /uL (1500-7000); Neutrophils Percent Auto 77.9 % (50-75); Platelet Count 287 X10^3/uL (150-400); Prothrombin Time 12.1 SECONDS (10.1-12.7); Red Blood Cell Count 4.39 X10^6/uL (4.0-5.2); White Blood Cell Count 9.7 X10^3/uL (4.5-11.0)
[2020-07-11 17:21] LABS: PTT Partial Thromboplastin Tim 33 SECONDS (26.4-36.2)
[2020-07-11 17:22] LABS: Alanine Aminotransferase 24 IU/L (<35); Albumin 4.7 g/dL (3.5-5.0); Alkaline Phosphatase 114 U/L (38-126); Aspartate Aminotransferase 29 IU/L (14-36); BUN Creatinine Ratio 17.3 (6-22); Bilirubin Total 0.8 mg/dL (0.2-1.3); Blood Urea Nitrogen 14 mg/dL (7-17); Calcium 9.5 mg/dL (8.4-10.2); Carbon Dioxide 27 mmol/L (22-32); Chloride 101 mmol/L (98-107); Estimated Glomerular Filt Rate > 60.0 mL/min (>60); Globulin 4.5 g/dL (1.7-4.1); Glucose 248 mg/dL (70-100); HEMOLYSIS < 15 (0-50); Lactate (Lactic Acid) 1.4 mmol/L (0.7-2.1); Lipase 254 U/L (23-300); Potassium 4.3 mmol/L (3.4-5.1); Sodium 138 mmol/L (137-145); Total Protein 9.2 g/dL (6.3-8.2)
--- NOTE | 2020-07-11 17:32 | DI.CT.S_ITS ---
PROCEDURE: CT FACIAL BONES W CON INDICATIONS: hx of dental cavities and abscess, facial swelling/pain TECHNIQUE: After the administration of intravenous contrast, 2.5 mm axial sections acquired from the mid-neck to the frontal sinuses, with coronal and sagittal reformats. For radiation dose reduction, the following was used: automated exposure control, adjustment of mA and/or kV according to patient size. COMPARISON: None. FINDINGS: Image quality: Excellent. Soft tissues: There is intermediate density measuring 1.7 x 0.9 x 0.6 cm, (04/17 and 12/12) anterior to the inferior right maxillary sinus and adjacent to the right 1st premolar (tooth #5). There is a small focus of gas at the superior portion. There is periapical lucency at this tooth. There is a dental paz also seen, (12/07). A periapical lucency at the right upper 1st molar (tooth #3). The majority of this tooth is destroyed. A several additional teeth with severe dental disease. No enlarged lymph nodes. Vascular: Visualized vascular structures appear patent throughout. Bony vascular foramina and canals appear normal. Bones: Facial bones appear intact, without fractures, erosions, or destruction. Deviated nasal septum. Visualized portions of the skull base and auditory canals also appear normal. Sinuses: Right maxillary mucosal thickening, moderate. Mastoid air cells are aerated. IMPRESSION: 1. Small intermediate density collection with punctate focus of gas anterior to the right maxillary teeth consistent with a small abscess. This may emanate from the right maxillary 1st premolar. Multifocal severe dental disease. 2. Right maxillary sinus mucosal thickening. Dictated by: Erik Stallings M.D. on 07/11/2020 at 18:18 Approved by: Erik Stallings M.D. on 07/11/2020 at 18:28
[2020-07-11 18:02] LABS: Procalcitonin 0.08 ng/mL (<0.5)
--- NOTE | 2020-07-11 19:05 | ED.DENTAL ---
HPI - Dental/Oral <SYLVIA Alonso - Last Filed: 07/11/20 20:16> General Chief complaint: Dental/Oral Stated complaint: ABSCESS RIGHT SIDE OF FACE HEART RATE IS HIGH Time Seen by Provider: 07/11/20 16:56 Source: patient Mode of arrival: Ambulatory Limitations: no limitations History of Present Illness HPI Narrative: This is a 50-year-old female, former smoker, who has history of diabetes and poor denition presents to ED with chief complain of right upper tooth (#5) pain. Patient reports she had chipped tooth and started antibiotic medication cefuroxime for 14 day course on 06/19/20 and which she completed a few days ago. Patient reports recurring swelling to right-sided face since yesterday. Patient denies fever, chills, nausea or vomiting. Patient reports currently pain is managed by [id number] Tylenol which she had taken 3 tabs of extra-strength at 9:00 a.m. she has history of GI ulcer and bleed from prolonged use of NSAIDS and she has been avoiding taking this. Patient does not have established dentist currently but has seen at [facility] dental clinic in the past. Patient denies pain with extraocular movement. Patient reports at times right-sided nasal congestion and difficulty breathing through this. She has been taking allergy pills to help with nasal congestion. Patient reports pain increases with chewing. She had taken some juice and peanut butter today. Patient was told if she uses raw bruno on affected gum to help drawing out abscess which she had use last night and now she sees white color discoloration on right upper gum. Patient went to see her primary care provider, VERONICA Shelton and was referred to ED with concerns for dental abscess/sepsis. Complaint: tooth pain Related Data Home Medications Medication Instructions Recorded Confirmed ondansetron 4 mg disintegrating 4 mg PO Q8H PRN 04/20/19 07/11/20 tablet Previous Rx's Medication Instructions Recorded [Custom Inserts] units #6 06/11/17 Diabetic shoes & Inserts&Guantlets #1 ea 02/03/18 albuterol sulfate 90 mcg/actuation 2 puff INHALATION Q6H PRN #8.5 gram 02/18/20 aerosol inhaler atorvastatin 20 mg tablet 20 mg PO BEDTIME #90 tab 02/18/20 estradiol 1 mg tablet 1 mg PO DAILY #90 tab 02/18/20 fluticasone propionate 44 1 - 2 puff INHALATION Q12H #1 inh 02/18/20 mcg/actuation HFA aerosol inhaler insulin glargine 100 unit/mL (3 40 unit SUBCUT BID 90 Days #72 ml 02/18/20 mL) subcutaneous pen lisinopril 2.5 mg tablet 2.5 mg PO QDAY #90 tab 02/18/20 pen needle, diabetic 31 gauge x #100 each 02/18/2002/04 blood sugar diagnostic #300 each 05/19/20 diclofenac sodium 1 % topical gel 2 gram TOP QID #100 gram 05/19/20 clindamycin HCl 300 mg PO Q6H 7 Days #28 cap 07/11/20 Allergies Allergy/AdvReac Type Severity Reaction Status Date / Time codeine [CODEINE] Allergy Severe HIVES AND Verified 07/11/20 15:45 ITCHING ibuprofen [IBUPROFEN] Allergy Severe SEVERE Verified 07/11/20 15:45 ABDOMINAL PAIN AND OTHER STOMACH ISSUES morphine [MORPHINE] Allergy Severe BURNING, Verified 07/11/20 15:45 REDNESS Sulfa (Sulfonamide Allergy Severe HIVES Verified 07/11/20 15:45 Antibiotics) [SULFA (SULFONAMIDE ANTIBIOTICS)] hydrocodone [HYDROCODONE] Allergy Intermediate ITCHING Verified 07/11/20 15:45 venlafaxine AdvReac Severe Depression Verified 07/11/20 15:45 and suicidal thoughts doxycycline [DOXYCYCLINE] AdvReac Intermediate reaction Verified 07/11/20 15:45 to sunlight-burning ketorolac [From TORADOL] AdvReac Intermediate vomiting Verified 07/11/20 15:45 tramadol AdvReac Intermediate Nausea and Verified 07/11/20 15:45 vomiting nitrofurantoin AdvReac Mild NAUSEA AND Verified 07/11/20 15:45 [NITROFURANTOIN] VOMITING Review of Systems <SYLVIA Alonso - Last Filed: 07/11/20 20:16> Review of Systems Narrative: General: Denies fever, chills, fatigue, malaise, sweats. HEENT: See HPI Respiratory: Denies dyspnea, cough, wheezing, hemoptysis, sputum. Cardiovascular: Denies chest pain, palpitations, orthopnea, edema. Gastrointestinal: Denies nausea, vomiting, abdominal pain, diarrhea, constipation, melena. Neurologic: Denies weakness, headache, numbness, change in speech, confusion, seizures, incoordination. Psychiatric: No concerning psychosocial issues. Patient History <SYLVIA Alonso - Last Filed: 07/11/20 20:16> Medical History Asthma (Chronic) De Quervain's disease (tenosynovitis) (Resolved) Diabetes (Acute) Elevated TSH (Acute) Gastroenteritis (Resolved ~07/2017) Hair thinning (Acute) Hot flashes due to menopause (Acute) Hyperlipemia (Chronic) Hypertension (Chronic) Left knee pain (Acute) Right elbow pain (Acute) Scoliosis (Chronic) Screening for malignant neoplasm of colon (Acute) Substance abuse (Resolved) Surgical History History of tonsillectomy Hx of surgical procedure (Resolved) Hx of surgical procedure (Resolved) Hx of tooth extraction (Resolved) S/P bilateral salpingo-oophorectomy (Resolved 01/18/19) Status post delivery Status post hysterectomy Family History Father Heart disease Diabetes mellitus Mother Cancer Brother Diabetes mellitus Social History household members: friend(s) Smoking Status: Former smoker Tobacco: How many years used: 20 second hand exposure: Yes alcohol intake: current (occasionally during holidays.) substance use type: marijuana Smoking Status: Former smoker alcohol intake frequency: holidays/special occasions only Substance Use Type: former substance user and marijuana Exam <SYLVIA Alonso - Last Filed: 07/11/20 20:16> Narrative Exam Narrative: GEN: Alert, oriented x 3, well appearing and nourished, and in no acute distress. Head: Normal cephalic, atraumatic. No scalp or temporal tenderness, palpable mass or rash. EYES: Pupils are equal, round, and reactive to light and accommodation. Extraocular muscles are intact bilaterally without pain. There is no subconjunctival hemorrhage, exudate and sclera non-icteric. ENT: Bilateral auditory canals and tympanic membranes clear. Hearing grossly intact. Nose without bleeding, purulent discharge or deviation. Right side turbinate moderate swelling and mild erythema. Right-sided facial swelling with mild warmth and erythema. Mucous membrane moist. White linear discoloration on right upper gum without drainage or swelling. Generalized poor dentition with multiple caries, fractured and missing teeth. Throat without erythema, tonsillar hypertrophy or exudate. Uvula in midline, airway patent. Neck: Trachea in midline. No JVD, non-tender without lymphadenopathy. No masses or thyroid megaly. Supple, non-tender and no meningeal signs. CARDIAC: Normal regular rate and rhythm without murmurs, gallops, or rubs. No chest wall tenderness. No peripheral edema, cyanosis or pallor. Capillary refill is less than 2 seconds. RESPIRATORY: Lungs are clear to auscultate bilaterally. No cough, wheezes, rales, or rhonchi. No stridor, respiratory distress, increase work of breathing, or accessary muscle used. ABD: Abdomen soft, nontender and non-distended. No guarding or rebound tenderness to palpate. Bowel sounds are normal in all 4 quadrants. There is no palpable masses or organomegaly. EXT: Full painless ROM of all extremities with no loss of sensation, strength, effusion or edema. SKIN: Warm, dry, normal color for patient. No erythema, lesions or rash over visible areas. BACK: Nontender without deformity or crepitance. No flank tenderness. NEUROLOGICAL: Alert and oriented to place, time and person. Sensation and motor function intact bilaterally. No facial droops, dysphasia. PSYCHIATRIC: Good judgement and reason, without hallucinations, abnormal affect or abnormal behaviors during the examination. Patient is not suicidal. Initial Vital Signs Initial Vital Signs: Vital Signs Temperature 99.5 F 07/11/20 16:25 Pulse Rate 123 H 07/11/20 16:25 Respiratory Rate 20 07/11/20 16:25 Blood Pressure 163/96 H 07/11/20 16:25 Pulse Oximetry 94 07/11/20 16:25 <Florian Zavala, - Last Filed: 07/11/20 22:33> Initial Vital Signs Initial Vital Signs: Vital Signs Temperature 99.5 F 07/11/20 16:25 Pulse Rate 123 H 07/11/20 16:25 Respiratory Rate 20 07/11/20 16:25 Blood Pressure 163/96 H 10/20/20 16:25 Pulse Oximetry 94 07/11/20 16:25 Scores <SYLVIA Alonso - Last Filed: 07/11/20 20:16> GCS Elie coma scale eye opening: Spontaneous Elie coma scale verbal response: Orientated [place] coma scale motor response: Obey commands Elie coma scale total score: 15 qSOFA Altered Mental Status (GCS <15): No Respiratory rate greater than/equal to 22: No Systolic blood pressure less than or equal to 100: No qSOFA Total: 0 0-1 Not High Risk 1-3 High risk Course <Miguel NOELLE LindaP - Last Filed: 07/11/20 20:16> Orders Ordered: ED Orders 07/11/20 16:50 Complete Blood Count AUTO DIFF Stat Comprehensive Metabolic Panel Stat Lactate (Lactic Acid) Stat Lipase Stat Partial Thromboplastin Time Stat Procalcitonin Stat Prothrombin Time INR Stat 07/11/20 17:00 XR chest 1V Stat RT Consult Eval and Treat Now 07/11/20 17:32 CT facial bones w con Stat 07/11/20 18:10 Blood Culture Stat 07/11/20 18:21 EKG-12 Lead Stat 07/11/20 19:49 COVID19 -ED/INPAT/OR/L&D Stat Discontinued Medications Clindamycin HCl (Cleocin) 300 mg PO NOW ONE Stop: 07/11/20 19:13 Last Admin: 07/11/20 19:22 Dose: 300 mg Documented by: HGCONCHA Sodium Chloride (Normal Saline 0.9%) 1,000 mls @ 1,000 mls/hr IV BOLUS ONE Stop: 07/11/20 17:59 Last Infusion: 07/11/20 19:55 Dose: 0 mls/hr Documented by: Admin: 07/11/20 17:05 Dose: 1,000 mls/hr Documented by: ANGELITA Reevaluation(s) Reevaluation #1: Patient reports pain is tolerable. Discussed findings from labs and CT and that requires dental procedure to treat dental abscess. Time: 19:00 Consultations Consultation #1: Dr. Zavala consulted with CT and lab findings. Recommended to consult Dr. Talamantes for dental abscess management. Dr. Talamantes kindly returned the call for consultation and he recommended starting patient on clindamycin 300 mg q.i.d. dose for 7 day course and have patient contact the office tomorrow morning to follow-up. Time: 19:15 Vital Signs Vital signs: Vital Signs - 8 hr 07/11/20 16:25 07/11/20 18:16 07/11/20 18:18 Temperature 99.5 F Pulse Rate 123 H 111 H 108 H Respiratory Rate 20 Blood Pressure 163/96 H 191/90 H Pulse Oximetry 94 96 97 07/11/20 18:30 07/11/20 19:00 07/11/20 19:09 Temperature Pulse Rate 108 H 113 H 110 H Respiratory Rate Blood Pressure 180/85 H 176/83 H 177/84 H Pulse Oximetry 98 98 97 07/11/20 19:30 07/11/20 19:41 Temperature Pulse Rate 111 H 116 H Respiratory Rate Blood Pressure 177/81 H 164/73 H Pulse Oximetry 98 95 <Florian Zavala, - Last Filed: 07/11/20 22:33> Orders Ordered: ED Orders 07/11/20 16:50 Complete Blood Count AUTO DIFF Stat Comprehensive Metabolic Panel Stat Lactate (Lactic Acid) Stat Lipase Stat Partial Thromboplastin Time Stat Procalcitonin Stat Prothrombin Time INR Stat 07/11/20 17:00 XR chest 1V Stat RT Consult Eval and Treat Now 07/11/20 17:32 CT facial bones w con Stat 07/11/20 18:10 Blood Culture Stat 07/11/20 18:21 EKG-12 Lead Stat 07/11/20 19:49 COVID19 -ED/INPAT/OR/L&D Stat Discontinued Medications Clindamycin HCl (Cleocin) 300 mg PO NOW ONE Stop: 07/11/20 19:13 Last Admin: 07/11/20 19:22 Dose: 300 mg Documented by: BELL Sodium Chloride (Normal Saline 0.9%) 1,000 mls @ 1,000 mls/hr IV BOLUS ONE Stop: 07/11/20 17:59 Last Infusion: 07/11/20 19:55 Dose: 0 mls/hr Documented by: Admin: 07/11/20 17:05 Dose: 1,000 mls/hr Documented by: ANGELITA Vital Signs Vital signs: Vital Signs - 8 hr 07/11/20 16:25 07/11/20 18:16 07/11/20 18:18 Temperature 99.5 F Pulse Rate 123 H 111 H 108 H Respiratory Rate 20 Blood Pressure 163/96 H 191/90 H Pulse Oximetry 94 96 97 07/11/20 18:30 07/11/20 19:00 07/11/20 19:09 Temperature Pulse Rate 108 H 113 H 110 H Respiratory Rate Blood Pressure 180/85 H 176/83 H 177/84 H Pulse Oximetry 98 98 97 07/11/20 19:30 07/11/20 19:41 Temperature Pulse Rate 111 H 116 H Respiratory Rate Blood Pressure 177/81 H 164/73 H Pulse Oximetry 98 95 MDM - Dental/Oral <SYLVIA Alonso - Last Filed: 07/11/20 20:16> Differential Diagnosis Differential diagnosis: Likely gingival abscess, dental caries, dental abscess and other (Sepsis) Medical Records Attestation: I reviewed the patient's medical records. Lab Data Attestation: I reviewed the patient's lab results. Result diagrams: 07/11/20 16:50 07/11/20 16:50 Labs: Lab Results 07/11/20 07/11/20 07/11/20 Range/Units 16:50 16:50 16:50 WBC 9.7 (4.5-11.0) X10^3/uL RBC 4.39 (4.0-5.2) X10^6/uL Hgb 13.6 (12.0-16.0) g/dL Hct 40.4 (36-46) % MCV 92.1 (80-100) fL MCH 31.0 (26-34) PG MCHC 33.7 (30-36) % RDW 13.0 (11.6-14.8) % Plt Count 287 (150-400) X10^3/uL Neut % (Auto) 77.9 H (50-75) % Lymph % (Auto) 15.3 L (25-40) % [place] % (Auto) 5.9 (3-14) % Eos % (Auto) 0.4 L (2-4) % Baso % (Auto) 0.5 (0-2) % Neut # (Auto) 7500 H (2317-7732) /uL Lymph # (Auto) 1500 (7322-7038) /uL [place] # (Auto) 600 (0-900) /uL Eos # (Auto) 0 (0-450) /uL Baso # (Auto) 0 (0-100) /uL PT 12.1 (10.1-12.7) SECONDS INR 1.0 (0.9-1.3) APTT 33 (26.4-36.2) SECONDS Sodium (137-145) mmol/L Potassium (3.4-5.1) mmol/L Chloride (98-107) mmol/L Carbon Dioxide (22-32) mmol/L BUN (7-17) mg/dL Creatinine (0.52-1.04) mg/dL Estimated GFR (>60) mL/min BUN/Creatinine Ratio (6-22) Glucose (70-100) mg/dL Lactate (0.7-2.1) mmol/L Calcium (8.4-10.2) mg/dL Total Bilirubin (0.2-1.3) mg/dL AST (14-36) IU/L ALT (<35) IU/L Alkaline Phosphatase (38-126) U/L Total Protein (6.3-8.2) g/dL Albumin (3.5-5.0) g/dL Globulin (1.7-4.1) g/dL Albumin/Globulin Ratio (1.0-2.8) Lipase (23-300) U/L Procalcitonin 0.08 (<0.5) ng/mL COVID-19 PCR (Negative) 07/11/20 07/11/20 07/11/20 Range/Units 16:50 16:50 19:49 WBC (4.5-11.0) X10^3/uL RBC (4.0-5.2) X10^6/uL Hgb (12.0-16.0) g/dL Hct (36-46) % MCV (80-100) fL MCH (26-34) PG MCHC (30-36) % RDW (11.6-14.8) % Plt Count (150-400) X10^3/uL Neut % (Auto) (50-75) % Lymph % (Auto) (25-40) % [place] % (Auto) (3-14) % Eos % (Auto) (2-4) % Baso % (Auto) (0-2) % Neut # (Auto) (5090-1791) /uL Lymph # (Auto) (5312-6173) /uL [place] # (Auto) (0-900) /uL Eos # (Auto) (0-450) /uL Baso # (Auto) (0-100) /uL PT (10.1-12.7) SECONDS INR (0.9-1.3) APTT (26.4-36.2) SECONDS Sodium 138 (137-145) mmol/L Potassium 4.3 (3.4-5.1) mmol/L Chloride 101 (98-107) mmol/L Carbon Dioxide 27 (22-32) mmol/L BUN 14 (7-17) mg/dL Creatinine 0.81 (0.52-1.04) mg/dL Estimated GFR > 60.0 (>60) mL/min BUN/Creatinine Ratio 17.3 (6-22) Glucose 248 H (70-100) mg/dL Lactate 1.4 (0.7-2.1) mmol/L Calcium 9.5 (8.4-10.2) mg/dL Total Bilirubin 0.8 (0.2-1.3) mg/dL AST 29 (14-36) IU/L ALT 24 (<35) IU/L Alkaline Phosphatase 114 (38-126) U/L Total Protein 9.2 H (6.3-8.2) g/dL Albumin 4.7 (3.5-5.0) g/dL Globulin 4.5 H (1.7-4.1) g/dL Albumin/Globulin Ratio 1.0 (1.0-2.8) Lipase 254 (23-300) U/L Procalcitonin (<0.5) ng/mL COVID-19 PCR Negative (Negative) Imaging Data CT-Facial bones w contrast: Radiologist's Impression: BelledejanMichaela Ambrose 50 F [address] [address] [address] Scan Report Signed Patient: Michaela Zaman [facility]#: [id number] : 1970Acct:[id number] Age/Sex: 50 / FDate of Service: 07/11/20 Loc: ED Accession Number: [id number] Procedure: CT facial bones w con Ordering Provider: Miguel LindaP PROCEDURE: CT FACIAL BONES W CON INDICATIONS: hx of dental cavities and abscess, facial swelling/pain TECHNIQUE: After the administration of intravenous contrast, 2.5 mm axial sections acquired from the mid-neck to the frontal sinuses, with coronal and sagittal reformats. For radiation dose reduction, the following was used: automated exposure control, adjustment of mA and/or kV according to patient size. COMPARISON: None. FINDINGS: Image quality: Excellent. Soft tissues: There is intermediate density measuring 1.7 x 0.9 x 0.6 cm, (04/17 and 12/12) anterior to the inferior right maxillary sinus and adjacent to the right 1st premolar (tooth #5). There is a small focus of gas at the superior portion. There is periapical lucency at this tooth. There is a dental paz also seen, (12/07). A periapical lucency at the right upper 1st molar (tooth #3). The majority of this tooth is destroyed. A several additional teeth with severe dental disease. No enlarged lymph nodes. Vascular: Visualized vascular structures appear patent throughout. Bony vascular foramina and canals appear normal. Bones: Facial bones appear intact, without fractures, erosions, or destruction. Deviated nasal septum. Visualized portions of the skull base and auditory canals also appear normal. Sinuses: Right maxillary mucosal thickening, moderate. Mastoid air cells are aerated. IMPRESSION: 1. Small intermediate density collection with punctate focus of gas anterior to the right maxillary teeth consistent with a small abscess. This may emanate from the right maxillary 1st premolar. Multifocal severe dental disease. 2. Right maxillary sinus mucosal thickening. Dictated by: Erik Stallings M.D. on 07/11/2020 at 18:18 Approved by: Erik Stallings M.D. on 07/11/2020 at 18:28 Chest x-ray: Radiologist's Impression: [address] [address] XRay Report Signed Patient: Michaela Zaman [facility]#: [id number] : 1970Acct:[id number] Age/Sex: 50 / FDate of Service: 07/11/20 Loc: ED Accession Number: [id number] Procedure: XR chest 1V Ordering Provider: Miguel Linda [facility] PROCEDURE: XR CHEST 1V INDICATIONS: suspected sepsis TECHNIQUE: One view of the chest was acquired. COMPARISON: Located Within [facility], CR, XR CHEST 1V, 04/30/2018, 20:08. FINDINGS: Surgical changes and devices: None. Lungs and pleura: Lungs are clear. No pleural effusions or pneumothorax. Mediastinum: Mediastinal contours appear normal. Heart size is normal. Bones and chest wall: No suspicious bony lesions. Overlying soft tissues appear unremarkable. IMPRESSION: No acute cardiopulmonary pathology. Dictated by: Pete Fields M.D. on 07/11/2020 at 16:33 Approved by: Pete Fields M.D. on 07/11/2020 at 16:33 ECG Data Attestation: I personally reviewed and interpreted this ECG as follows: Prior ECG tracings: available for review Interpretation: Sinus tachycardia rate at 1:02 a.m.. Normal [employer]. [place] interval 149, QRS duration 89, QT/QTC 342/401. No acute ST changes. Similar EKG tracing with sinus tachycardia in November 2011. MDM Narrative Medical decision making narrative: This is a 50 year female who presents to ED with concerns for sepsis and dental abscess after she was instructed by her PCP VERONICA Shelton. She started 14 day course of antibiotic medication cefuroxime on 06/19/20 which she had completed a few days ago. Patient reports right-sided facial swelling had subsided when she completed antibiotic medication but now has recurred last night. Patient denies constitutional symptoms. She has been managing pain with [id number] Tylenol with last dose at 9:00 a.m.. When patient arrived, nursing standard order for sepsis workup initiated. Patient is afebrile with slightly elevated blood pressure and tachycardia in 120s when she arrived to ED. No leukocytosis (WBC 9.7) with mildly elevated neutrophils of 77.9%. Serum glucose elevated to 248 which may be a reflection for an infection. Normal lactate of 1.4 and procalcitonin of 0.8. Normal kidney function and liver function test. Patient received 1 L of normal saline with improved heart rate which decreased to 100's. CT test of facial bones with contrast shows small intermediate density collection of punctate focus of gas anterior to the right maxillary teeth consistent with a small abscess with multiple focal severe dental disease. Right maxillary sinus mucosal thickening. Patient was treated with 1st dose of clindamycin ED and discharged to home with 300 mg q.i.d. dose for 7 day course. Patient advised continue to use [id number] Tylenol for pain management. Dr. Talamantes consulted with the patient's labs and CT findings and he recommended follow-up at the office by calling tomorrow morning. Appreciate his time and expertise. Return precautions were discussed with patient and she verbalized understanding in agreement with treatment plan. Covid swab done before leaving ER in anticipation for dental procedure which came back negative. <Florian Zavala, DO - Last Filed: 07/11/20 22:33> Lab Data Labs: Lab Results 07/11/20 07/11/20 07/11/20 Range/Units 16:50 16:50 16:50 WBC 9.7 (4.5-11.0) X10^3/uL RBC 4.39 (4.0-5.2) X10^6/uL Hgb 13.6 (12.0-16.0) g/dL Hct 40.4 (36-46) % MCV 92.1 (80-100) fL MCH 31.0 (26-34) PG MCHC 33.7 (30-36) % RDW 13.0 (11.6-14.8) % Plt Count 287 (150-400) X10^3/uL Neut % (Auto) 77.9 H (50-75) % Lymph % (Auto) 15.3 L (25-40) % [place] % (Auto) 5.9 (3-14) % Eos % (Auto) 0.4 L (2-4) % Baso % (Auto) 0.5 (0-2) % Neut # (Auto) 7500 H (2425-4189) /uL Lymph # (Auto) 1500 (7568-4510) /uL [place] # (Auto) 600 (0-900) /uL Eos # (Auto) 0 (0-450) /uL Baso # (Auto) 0 (0-100) /uL PT 12.1 (10.1-12.7) SECONDS INR 1.0 (0.9-1.3) APTT 33 (26.4-36.2) SECONDS Sodium (137-145) mmol/L Potassium (3.4-5.1) mmol/L Chloride (98-107) mmol/L Carbon Dioxide (22-32) mmol/L BUN (7-17) mg/dL Creatinine (0.52-1.04) mg/dL Estimated GFR (>60) mL/min BUN/Creatinine Ratio (6-22) Glucose (70-100) mg/dL Lactate (0.7-2.1) mmol/L Calcium (8.4-10.2) mg/dL Total Bilirubin (0.2-1.3) mg/dL AST (14-36) IU/L ALT (<35) IU/L Alkaline Phosphatase (38-126) U/L Total Protein (6.3-8.2) g/dL Albumin (3.5-5.0) g/dL Globulin (1.7-4.1) g/dL Albumin/Globulin Ratio (1.0-2.8) Lipase (23-300) U/L Procalcitonin 0.08 (<0.5) ng/mL COVID-19 PCR (Negative) 07/11/20 07/11/20 07/11/20 Range/Units 16:50 16:50 19:49 WBC (4.5-11.0) X10^3/uL RBC (4.0-5.2) X10^6/uL Hgb (12.0-16.0) g/dL Hct (36-46) % MCV (80-100) fL MCH (26-34) PG MCHC (30-36) % RDW (11.6-14.8) % Plt Count (150-400) X10^3/uL Neut % (Auto) (50-75) % Lymph % (Auto) (25-40) % [place] % (Auto) (3-14) % Eos % (Auto) (2-4) % Baso % (Auto) (0-2) % Neut # (Auto) (0494-3498) /uL Lymph # (Auto) (5006-2027) /uL [place] # (Auto) (0-900) /uL Eos # (Auto) (0-450) /uL Baso # (Auto) (0-100) /uL PT (10.1-12.7) SECONDS INR (0.9-1.3) APTT (26.4-36.2) SECONDS Sodium 138 (137-145) mmol/L Potassium 4.3 (3.4-5.1) mmol/L Chloride 101 (98-107) mmol/L Carbon Dioxide 27 (22-32) mmol/L BUN 14 (7-17) mg/dL Creatinine 0.81 (0.52-1.04) mg/dL Estimated GFR > 60.0 (>60) mL/min BUN/Creatinine Ratio 17.3 (6-22) Glucose 248 H (70-100) mg/dL Lactate 1.4 (0.7-2.1) mmol/L Calcium 9.5 (8.4-10.2) mg/dL Total Bilirubin 0.8 (0.2-1.3) mg/dL AST 29 (14-36) IU/L ALT 24 (<35) IU/L Alkaline Phosphatase 114 (38-126) U/L Total Protein 9.2 H (6.3-8.2) g/dL Albumin 4.7 (3.5-5.0) g/dL Globulin 4.5 H (1.7-4.1) g/dL Albumin/Globulin Ratio 1.0 (1.0-2.8) Lipase 254 (23-300) U/L Procalcitonin (<0.5) ng/mL COVID-19 PCR Negative (Negative) Discharge Plan Departure Patient Disposition: Home Clinical Impression: Abscess, dental Discharge Date/Time: 07/11/20 19:55 Activity Restrictions/Additional Instructions: You have been diagnosed with [small dental abscess on right maxillary teeth and right maxillary sinus mucosal thickening. No indications for sepsis at this time. You were treated with 1st dose of clindamycin in ED before discharged to home. Continue to take clindamycin 300 mg every 6 hours for 1 week.]. What to do: *Take your medications as directed. You can take [id number] Tylenol as needed for pain. You can take up to 650-1000 mg Tylenol up to 3 to 4 times a day. Ibuprofen as needed for pain if no symptoms of GI irritation and take it with food. Clind[facility] has been transmitted to [facility]. *Follow up with your primary care provider in 2-3 days, call for an appointment and please follow-up with Dr. Talamantes by calling his office tomorrow morning. Let them know you were seen in the ED and that we asked you to be seen in follow up. *Return to ED if you have any new, worsening, or concerning symptoms, such as [fever, chills, unable to tolerate fluids, worsening pain, chest pain, breathing difficulty, or any acute concerns]. Prescriptions: New clindamycin HCl 300 mg capsule 300 mg PO Q6H 7 Days Qty: 28 RF: 0 No Action [Custom Inserts] Qty: 6 RF: 0 (DME) Diabetic shoes & Inserts&Guantlets Qty: 1 RF: 0 albuterol sulfate 90 mcg/actuation HFA aerosol inhaler 2 puff INHALATION Q6H PRN (Reason: shortness of breath or wheezing) Qty: 8.5 RF: 5 Flovent HFA 44 mcg/actuation HFA aerosol inhaler 1 - 2 puff inhalation Q12H Qty: 1 RF: 3 estradiol 1 mg tablet 1 mg PO DAILY Qty: 90 RF: 3 atorvastatin 20 mg tablet 20 mg PO BEDTIME Qty: 90 RF: 3 Lantus Solostar U-100 Insulin 100 unit/mL (3 mL) insulin pen 40 unit SUBCUT BID 90 Days Qty: 72 RF: 3 lisinopril 2.5 mg tablet 2.5 mg PO QDAY Qty: 90 RF: 3 (DME) pen needle, diabetic [Comfort EZ Pen [place]] 31 gauge x 5/16 needle See Dose Instructions .ROUTE .MEDSUPPLY Qty: 100 RF: 1 diclofenac sodium 1 % gel 2 gram TOP QID Qty: 100 RF: 0 (DME) FreeStyle Test Strip See Dose Instructions .ROUTE .MEDSUPPLY Qty: 300 RF: 0 ondansetron 4 mg tablet,disintegrating 4 mg PO Q8H PRN (Reason: nausea and vomiting) RF: 0 Referrals: Gómez Talamantes DMD [Physician] - Nubia Shelton ARNP [Primary Care Provider] - <Florian Zavala DO - Last Filed: 07/11/20 22:33> Cosign ED Attending Neymar Attestation: I was immediately available in the department for consultation. This documentation has been reviewed and I agree with assessment and plan. Supervised by Florian Zavala DO
[2020-07-11] MEDS: CLINDAMYCIN 150 MG CAPSULE 300 MG PO (19:22)
[2020-07-11 20:12] LABS: COVID19 -Nasal RAPID Negative (Negative)
--- NOTE | 2020-07-11 20:26 | PC.NURSE ---
Pt called and notified of Negative COVID
== END 2020-07-11 19:55 | disposition home or self-care (01) ==
PROVIDERS: Emergency Provider Nurse Practitioner Family; PCP Nurse Practitioner Family
DX: K04.7 Periapical abscess without sinus (principal); R00.0 Tachycardia, unspecified; R79.89 Other specified abnormal findings of blood chemistry
CPT/HCPCS: 36415; 70487; 71045; 80053; 83605; 83690; 84145; 85025; 85610; 85730; 87040; 87635; 93005; 93010; 96360; 96361; 99285; Q9967

== ENCOUNTER → 2020-08-11 09:51 | Outpatient (CLI) | payer OTHER, MEDICAID, SELFPAY ==
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
[2020-08-11 10:55] LABS: Hemoglobin A1C% w Est Avg Glu 8.4 % (4.0-6.0)
[2020-08-11 11:44] LABS: TSH w/ Reflex to FT4 2.74 uIU/mL (0.47-4.68)
== END ==
PROVIDERS: PCP Nurse Practitioner Family; Referring Provider Nurse Practitioner Family; Visit Provider Nurse Practitioner Family
DX: J98.11 Atelectasis (principal); R06.02 Shortness of breath; E11.8 Type 2 diabetes mellitus with unspecified complications; E11.65 Type 2 diabetes mellitus with hyperglycemia; R79.89 Other specified abnormal findings of blood chemistry; Z82.49 Family history of ischemic heart disease and other diseases of the circulatory system; Z79.4 Long term (current) use of insulin
CPT/HCPCS: 36415; 71046; 83036; 84443

== ENCOUNTER → 2020-09-04 13:58 | Outpatient (CLI) | payer OTHER, MEDICAID, SELFPAY ==
[2020-09-04 15:20] LABS: COVID19 -Nasal RAPID Negative (Negative)
== END ==
PROVIDERS: PCP Nurse Practitioner Family; Visit Provider Physician Assistant
DX: Z11.59 Encounter for screening for other viral diseases (principal)
CPT/HCPCS: 87635

== ENCOUNTER → 2020-09-05 08:55 | Outpatient (CLI) | payer OTHER, MEDICAID, SELFPAY ==
--- NOTE | 2020-09-05 08:56 | DI.ECHO.S_ITS ---
Version: 1 Study ID: [id number] [place] [address] Name: SHYANN LAZAR Study Date: 09/05/2020, 9: 46 AM : 1970 BP: 172 / 98 mmHg Gender: Female Height: 62 in Age: 50 Years Weight: 200 lb BSA: 1.91 mA? Ordering: JEY TERRY Referring: JEY TERRY Clinician: Yasmin Emerson Reason For Study: SOB WITH EXERTION History: Summary Statements Normal sinus rhythm. Normal LV size, wall thickness, wall motion and LV systolic function. EF is 60-65%. Normal chamber sizes. No significant valvular abnormalities. No prior study available for comparison.. Procedure: A two-dimensional transthoracic echocardiogram with color flow and Doppler was performed. The study quality was technically adequate. There is no prior echocardiogram noted for this patient. The patient was in sinus rhythm with heart rates between 80-95 bpm during the exam. Left Ventricle: Diastolic parameters suggest probable normal left ventricular diastolic function and normal filling pressures. The ejection fraction is estimated to be 60-65%. The left ventricle is normal in size. There is mild concentric left ventricular hypertrophy. Right Ventricle: The right ventricle is normal in size and function. Atria: There is no Doppler evidence for an interatrial shunt. The left atrium is mildly dilated. Right atrial size is normal. Mitral Valve: There is mild mitral regurgitation. The mitral valve is normal in structure and function. Aortic Valve: No aortic regurgitation is present. There is no aortic valve stenosis. The aortic valve is slightly calcified. The aortic valve is trileaflet. The aortic valve opens well. Tricuspid Valve: Pulmonary artery pressures cannot be estimated because of the lack of a measurable TR jet velocity but the IVC suggests a CVP of around 3 mmHg. The tricuspid valve is normal in structure and function. Pulmonic Valve: There is no pulmonic valvular regurgitation. The pulmonic valve leaflets are thin and pliable; valve motion is normal. Great Vessels: The dimensions of the ascending aorta are normal. The aortic root is normal size. The IVC is of normal diameter and collapses greater than 50% with a sniff. This suggests a low right atrial pressure of 3 mm Hg. Pericardium/ Pleura: There is no pericardial effusion. There is no pleural effusion. 2D and M-Mode Measurements and Calculations LVIDd: 4.4 cm LVOT diam: 1.96 cm LVIDs: 2.9 cm Ao root diam: 2.7 cm IVSd: 1.10 cm asc Aorta Diam: 3.1 cm LVPWd: 1.12 cm Ao Arch Diam (Prox Trans): 2.7 cm LV alan. diameter/BSA (cm/m^2): 2.30 LV sys. diameter/BSA (cm/m^2): 1.51 EPSS: 0.27 cm RVD1 (basal): 3.0 cm IVC diam: 1.45 cm TAPSE: 1.93 cm LA A4 area: 15.4 senior professional services consultant? RA area: 14.5 senior professional services consultant? LA A2 area: 17.7 senior professional services consultant? RA long axis: 4.1 cm LA length (vol): 4.6 cm RA vol: 43.2 ml LA vol: 50.0 ml RA : 22.6 ml/mA? LA vol index: 26.2 ml/mA? Doppler Measurements and Calculations Ao V2 max: 178.8 cm/sec LVOT Max Max: 104.2 cm/sec Ao V2 mean: 125.8 cm/sec LV V1 max P.3 mmHg Ao V2 VTI: 37.3 cm LV V1 VTI: 24.3 cm Ao max P.8 mmHg Ao mean P.0 mmHg ZAN(I,D): 1.96 senior professional services consultant? ZAN(V,D): 1.75 senior professional services consultant? ZNA indexed to BSA (cm^2/m^2): 1.02 sev ratio: 0.65 MV E max max: 97.0 cm/sec MV dec time: 0.21 sec MV A max max: 100.4 cm/sec MV E/A: 0.97 Med Peak E' Max: 7.5 cm/sec Lat Peak E' Max: 9.1 cm/sec E/e' average: 11.8 PA V2 max: 86.9 cm/sec PA mean P.59 mmHg Electronically signed by: Monique Meng M.D. 09/06/2020, 12: 53 AM
== END ==
PROVIDERS: PCP Nurse Practitioner Family; Referring Provider Nurse Practitioner Family; Visit Provider Nurse Practitioner Family
DX: I34.0 Nonrheumatic mitral (valve) insufficiency (principal); R06.02 Shortness of breath; Z82.49 Family history of ischemic heart disease and other diseases of the circulatory system
CPT/HCPCS: 93306

== ENCOUNTER → 2020-09-07 08:21 | Outpatient (CLI) | payer OTHER, MEDICAID, SELFPAY ==
--- NOTE | 2020-09-07 09:31 | PM.TREADMILL ---
Cardiac Stress Test Report Referral & Results Date Patient Seen: 09/07/20 Time Patient Seen: 09:00 Requesting provider: Francis Atkinson Indication: Shortness of breath Rest ECG: NSR Procedure Note: Today following both written and verbal informed consent, the patient was exercised according to a standard [place] protocol. The patient exercised for a total of 7 minutes 43 seconds achieving a maximum heart rate of 168. Patient's maximum systolic blood pressure was 240. This was an estimated 10.1 METs. Exaggerated hemodynamic response to exercise. Slow normalization of blood pressure at rest. Average exercise capacity (FA I +5% on active scale). No EKG changes. Presenting symptoms of chest tightness and shortness of breath reproduced at peak exercise. No other signs or symptoms of angina. Impression: Low probability for ischemia. Consider emphasis on BP management and noncardiac causes for symptoms. Pineda treadmill score of 7 is correlated with 97% 5 year survival rate from cardiac causes of mortality. Please note: Actual ECG tracings can be found in the PACS system.
== END ==
PROVIDERS: PCP Nurse Practitioner Family; Referring Provider Nurse Practitioner Family; Visit Provider Nurse Practitioner Family
DX: R06.02 Shortness of breath (principal); R00.0 Tachycardia, unspecified; Z82.49 Family history of ischemic heart disease and other diseases of the circulatory system
CPT/HCPCS: 93016; 93017; 93018

== ENCOUNTER → 2021-02-07 09:34 | Outpatient (CLI) | payer OTHER, MEDICAID, SELFPAY ==
[2021-02-07 10:36] LABS: Hemoglobin 13.3 g/dL (12.0-16.0); Mean Corpuscular HGB Conc 33.3 % (30-36); Mean Corpuscular Hemoglobin 30.9 PG (26-34); Mean Corpuscular Volume 92.7 fL (80-100); Platelet Count 275 X10^3/uL (150-400); Red Blood Cell Count 4.32 X10^6/uL (4.0-5.2); Red Cell Distribution Width 12.9 % (11.6-14.8); White Blood Cell Count 7.5 X10^3/uL (4.5-11.0)
[2021-02-07 10:55] LABS: Alanine Aminotransferase 19 IU/L (<35); Albumin 4.6 g/dL (3.5-5.0); Albumin Globulin Ratio 1.3 (1.0-2.8); Alkaline Phosphatase 99 U/L (38-126); Aspartate Aminotransferase 23 IU/L (14-36); BUN Creatinine Ratio 27.4 (6-22); Bilirubin Total 0.3 mg/dL (0.2-1.3); Blood Urea Nitrogen 23 mg/dL (7-17); Calcium 9.9 mg/dL (8.4-10.2); Carbon Dioxide 24 mmol/L (22-32); Chloride 103 mmol/L (98-107); Estimated Glomerular Filt Rate > 60.0 mL/min (>60); Globulin 3.6 g/dL (1.7-4.1); Glucose 144 mg/dL (70-100); HEMOLYSIS < 15 (0-50); Potassium 4.7 mmol/L (3.4-5.1); Sodium 138 mmol/L (137-145); Total Protein 8.2 g/dL (6.3-8.2)
[2021-02-07 10:56] LABS: Hemoglobin A1C% w Est Avg Glu 8.9 % (4.0-6.0)
== END ==
PROVIDERS: PCP Nurse Practitioner Family; Referring Provider Nurse Practitioner Family; Visit Provider Nurse Practitioner Family
DX: E11.65 Type 2 diabetes mellitus with hyperglycemia (principal); E11.8 Type 2 diabetes mellitus with unspecified complications; Z79.4 Long term (current) use of insulin
CPT/HCPCS: 36415; 80053; 83036; 85027

== ENCOUNTER 2021-06-18 19:21 | Emergency (ER) | payer OTHER, SELFPAY ==
[2021-06-18 20:06] VITALS: BP 177/95; PULSE 98; RESP 17; TEMP 36.6; O2SAT 98
== END 2021-06-18 21:42 | disposition left against medical advice (07) ==
PROVIDERS: Emergency Provider Emergency Medicine; PCP Nurse Practitioner Family
CPT/HCPCS: 99281

== ENCOUNTER 2021-06-19 08:44 | Emergency (ER) | payer OTHER, SELFPAY ==
[2021-06-19 08:57] VITALS: BP 240/111; PULSE 98; RESP 16; TEMP 36.9; O2SAT 100; BMI 40.2
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
[2021-06-19 09:36] VITALS: BP 207/94; PULSE 80
[2021-06-19 09:38] VITALS: PULSE 77; O2SAT 98
[2021-06-19 10:00] VITALS: PULSE 77; O2SAT 96
== END 2021-06-19 10:06 | disposition home or self-care (01) ==
PROVIDERS: Emergency Provider Emergency Medicine; PCP Nurse Practitioner Family
DX: M62.838 Other muscle spasm (principal); I10 Essential (primary) hypertension; M54.2 Cervicalgia; V89.2XXA Person injured in unspecified motor-vehicle accident, traffic, initial encounter
CPT/HCPCS: 70450; 72125; 99283; 99284

== ENCOUNTER → 2021-10-31 08:09 | Outpatient (CLI) | payer OTHER, MEDICAID, SELFPAY ==
[2021-10-31 08:55] LABS: Hematocrit 40.2 % (36-46); Hemoglobin 13.5 g/dL (12.0-16.0); Mean Corpuscular HGB Conc 33.5 % (30-36); Mean Corpuscular Hemoglobin 30.8 PG (26-34); Mean Corpuscular Volume 91.9 fL (80-100); Platelet Count 317 X10^3/uL (150-400); Red Blood Cell Count 4.37 X10^6/uL (4.0-5.2); Red Cell Distribution Width 13.4 % (11.6-14.8)
[2021-10-31 09:03] LABS: Hemoglobin A1C% w Est Avg Glu 8.7 % (4.0-6.0)
[2021-10-31 09:13] LABS: Alanine Aminotransferase 32 IU/L (<35); Albumin 4.5 g/dL (3.5-5.0); Albumin Globulin Ratio 1.3 (1.0-2.8); Alkaline Phosphatase 99 U/L (38-126); Aspartate Aminotransferase 32 IU/L (14-36); BUN Creatinine Ratio 22.6 (6-22); Bilirubin Total 0.6 mg/dL (0.2-1.3); Blood Urea Nitrogen 19 mg/dL (7-17); Calcium 9.9 mg/dL (8.4-10.2); Carbon Dioxide 29 mmol/L (22-32); Chloride 104 mmol/L (98-107); Cholesterol 251 mg/dL (140-199); Estimated Glomerular Filt Rate > 60.0 mL/min (>60); Globulin 3.6 g/dL (1.7-4.1); Glucose 114 mg/dL (70-100); HDL Cholesterol 42 mg/dL (40-60); HEMOLYSIS < 15 (0-50); Potassium 5.1 mmol/L (3.4-5.1); Sodium 140 mmol/L (137-145); Total Protein 8.1 g/dL (6.3-8.2); Triglycerides 451 mg/dL (35-150)
== END ==
PROVIDERS: PCP Nurse Practitioner Family; Referring Provider Nurse Practitioner Family; Visit Provider Nurse Practitioner Family
DX: E11.65 Type 2 diabetes mellitus with hyperglycemia (principal); E11.8 Type 2 diabetes mellitus with unspecified complications; E66.9 Obesity, unspecified; E78.2 Mixed hyperlipidemia; I10 Essential (primary) hypertension; Z79.4 Long term (current) use of insulin
CPT/HCPCS: 36415; 80053; 80061; 83036; 85027

== ENCOUNTER → 2022-02-22 10:29 | Outpatient (CLI) | payer OTHER, MEDICAID, SELFPAY ==
[2022-02-22 11:14] LABS: Appearance Urine UA CLEAR; Bilirubin Urine UA NEGATIVE (NEGATIVE); Color Urine UA YELLOW; Glucose Urine UA NEGATIVE (Negative); Ketones Urine UA NEGATIVE (NEGATIVE); Leukocyte Esterase Urine UA NEGATIVE (NEGATIVE); Nitrite Urine UA NEGATIVE (Negative); Occult Blood Urine UA NEGATIVE (Negative); Protein Urine UA TRACE (Negative); Urobilinogen Urine UA 0.2 E.U./dL (0.2)
[2022-02-22 11:18] LABS: pH Urine UA 5.5 (4.5-8.0)
[2022-02-22 11:21] LABS: RBC Urine None Seen (0-5/HPF)
[2022-02-22 11:22] LABS: Bacteria Urine Many (>30); Culture Indicated Urine Cult Not Indicated; Squamous Epithelial Cell Urine 10-30 /HPF (0-5/HPF); WBC Urine 1-5/HPF (0-5/HPF)
[2022-02-22 11:39] LABS: Add Manual Diff / Slide Review NO; Basophils Absolute Auto 0 /uL (0-100); Basophils Percent Auto 0.5 % (0-2); Eosinophils Absolute Auto 700 /uL (0-450); Eosinophils Percent Auto 9.5 % (2-4); Hematocrit 39.8 % (36-46); Hemoglobin 13.5 g/dL (12.0-16.0); Lymphocytes Absolute Auto 2500 /uL (1100-4500); Lymphocytes Percent Auto 31.6 % (25-40); Mean Corpuscular Hemoglobin 30.8 PG (26-34); Mean Corpuscular Volume 90.7 fL (80-100); Monocytes Absolute Auto 500 /uL (0-900); Monocytes Percent Auto 6.2 % (3-14); Neutrophils Absolute Auto 4100 /uL (1500-7000); Neutrophils Percent Auto 52.2 % (50-75); Platelet Count 297 X10^3/uL (150-400); Red Blood Cell Count 4.39 X10^6/uL (4.0-5.2); Red Cell Distribution Width 13.1 % (11.6-14.8); White Blood Cell Count 7.9 X10^3/uL (4.5-11.0)
[2022-02-22 11:56] LABS: Amylase 107 U/L (30-110); Lipase 191 U/L (23-300)
[2022-02-25 14:10] LABS: Interpretation Negative (Negative)
[2022-02-25 18:57] LABS: Hemoglobin A1C% w Est Avg Glu 9.6 % (4.0-6.0)
[2022-02-25 19:51] LABS: Alanine Aminotransferase 19 IU/L (<35); Albumin 4.4 g/dL (3.5-5.0); Alkaline Phosphatase 93 U/L (38-126); Aspartate Aminotransferase 27 IU/L (14-36); BUN Creatinine Ratio 23.5 (6-22); Bilirubin Total 0.5 mg/dL (0.2-1.3); Blood Urea Nitrogen 20 mg/dL (7-17); Calcium 9.3 mg/dL (8.4-10.2); Carbon Dioxide 22 mmol/L (22-32); Chloride 106 mmol/L (98-107); Cholesterol 280 mg/dL (140-199); Estimated Glomerular Filt Rate > 60 mL/min (>60); Globulin 4.3 g/dL (1.7-4.1); Glucose 113 mg/dL (70-100); HDL Cholesterol 43 mg/dL (40-60); HEMOLYSIS < 15 (0-50); LDL Cholesterol Calculated 195 mg/dL (<100); Potassium 4.7 mmol/L (3.4-5.1); Sodium 139 mmol/L (137-145); Total Protein 8.7 g/dL (6.3-8.2); Triglycerides 211 mg/dL (35-150)
== END ==
PROVIDERS: PCP Registered Nurse Diabetes Educator; Referring Provider Registered Nurse Diabetes Educator; Visit Provider Registered Nurse Diabetes Educator
DX: R10.13 Epigastric pain (principal); R11.0 Nausea; R14.2 Eructation
CPT/HCPCS: 36415; 80053; 80061; 81001; 82150; 83013; 83036; 83690; 85025

== ENCOUNTER → 2022-03-29 07:39 | Outpatient (CLI) | payer OTHER, MEDICAID, SELFPAY ==
--- NOTE | 2022-03-29 07:40 | DI.US.S_ITS ---
PROCEDURE: US ABDOMEN LIMITED INDICATIONS: pls eval epigastric pain/nausea TECHNIQUE: Real-time scanning was performed of the abdominal and retroperitoneal organs, with image documentation. COMPARISON: None. FINDINGS: Liver: The liver measures 16.9 cm in length and demonstrates increased echogenicity. Gallbladder: The gallbladder wall measures 2.0 mm in diameter. No stones, sludge, pericholecystic fluid, or sonographic Ryder sign. Biliary ducts: Intrahepatic bile ducts are non-dilated. Extrahepatic bile duct caliber measures 5.2 mm. Normal is 6-7 mm or less in diameter, or 10 mm or less post-cholecystectomy. Pancreas: Visualized portions of the pancreas are sonographically normal. IMPRESSION: 1. Increased hepatic echogenicity noted likely related to fatty infiltration of the liver but other sources of hepatocellular disease cannot be excluded. 2. No cholelithiasis or findings to suggest choledocholithiasis or acute cholecystitis. Dictated by: Kavita Osullivan M.D. on 03/29/2022 at 8:42 Approved by: Kavita Osullivan M.D. on 03/29/2022 at 8:42
== END ==
PROVIDERS: PCP Registered Nurse Diabetes Educator; Referring Provider Registered Nurse Diabetes Educator; Visit Provider Registered Nurse Diabetes Educator
DX: R11.0 Nausea (principal); R10.13 Epigastric pain; R14.2 Eructation
CPT/HCPCS: 76705

== ENCOUNTER 2022-04-11 11:55 | Emergency (ER) | payer OTHER, MEDICAID, SELFPAY ==
[2022-04-11 12:01] VITALS: BP 174/90; PULSE 99; RESP 16; TEMP 37; O2SAT 96; BMI 41.3
[2022-04-11 12:27] LABS: Add Manual Diff / Slide Review NO; Basophils Absolute Auto 0 /uL (0-100); Basophils Percent Auto 0.4 % (0-2); Eosinophils Absolute Auto 400 /uL (0-450); Eosinophils Percent Auto 3.6 % (2-4); Hematocrit 42.6 % (36-46); Hemoglobin 14.1 g/dL (12.0-16.0); Lymphocytes Absolute Auto 2400 /uL (1100-4500); Lymphocytes Percent Auto 21.3 % (25-40); Mean Corpuscular Hemoglobin 30.1 PG (26-34); Mean Corpuscular Volume 91.2 fL (80-100); Monocytes Absolute Auto 600 /uL (0-900); Monocytes Percent Auto 5.8 % (3-14); Neutrophils Absolute Auto 7600 /uL (1500-7000); Neutrophils Percent Auto 68.9 % (50-75); Platelet Count 339 X10^3/uL (150-400); Red Blood Cell Count 4.67 X10^6/uL (4.0-5.2); Red Cell Distribution Width 13.3 % (11.6-14.8); White Blood Cell Count 11.1 X10^3/uL (4.5-11.0)
[2022-04-11 12:31] LABS: INR 1.1 (0.9-1.3); Prothrombin Time 11.7 SECONDS (10.1-12.7)
[2022-04-11 12:34] LABS: PTT Partial Thromboplastin Tim 33 SECONDS (26.4-36.2)
[2022-04-11 12:36] LABS: Alanine Aminotransferase 26 IU/L (<35); Albumin Globulin Ratio 1.2 (1.0-2.8); Alkaline Phosphatase 123 U/L (38-126); Aspartate Aminotransferase 33 IU/L (14-36); BUN Creatinine Ratio 18.2 (6-22); Bilirubin Total 0.7 mg/dL (0.2-1.3); Blood Urea Nitrogen 16 mg/dL (7-17); Calcium 9.6 mg/dL (8.4-10.2); Carbon Dioxide 29 mmol/L (22-32); Chloride 100 mmol/L (98-107); Estimated Glomerular Filt Rate > 60 mL/min (>60); Globulin 4.3 g/dL (1.7-4.1); Glucose 164 mg/dL (70-100); HEMOLYSIS < 15 (0-50); Lipase 83 U/L (23-300); Potassium 4.2 mmol/L (3.4-5.1); Sodium 139 mmol/L (137-145); Total Protein 9.3 g/dL (6.3-8.2)
--- NOTE | 2022-04-11 12:42 | ED_ITS ---
HPI - GI Bleed General Chief complaint: GI Bleed Stated complaint: abd. pain Time Seen by Provider: 04/11/22 12:17 Source: patient Mode of arrival: Wheelchair Limitations: no limitations History of Present Illness HPI Narrative: This is a 51-year-old female with insulin-dependent diabetes, hypertension, COPD and GERD with epigastric pain that has been persistent for several months patient has also had intermittent nausea. Yesterday she had an episode of emesis with coffee-ground. She is not had any additional she has slowly advanced her diet 1st clears, boost shakes and then a small meal last night she has occasional intermittent nausea particularly with food. Patient states no fevers or chills. She is not actively nauseated right now. She is intermittent diarrhea and constipation states she has IBS type symptoms, no black or bloody stools appreciated. No dysuria, urgency frequency. No vaginal bleeding or discharge. She is had a partial hysterectomy that was later completed in 2019 for a full hysterectomy. Denies any other surgeries. States she has multiple allergies to medications. Quit smoking tobacco 6 years ago, no alcohol, she uses marijuana intermittently but no other recreational drugs. Sumanth Lambert is her primary care. Related Data Home Medications Medication Instructions Recorded Confirmed chlorhexidine gluconate 0.12 % 15 ml buccal BID PRN 10/06/20 04/11/22 mouthwash Previous Rx's Medication Instructions Recorded [Custom Inserts] units ##6 06/11/17 Diabetic shoes & Inserts&Guantlets #1 ea 02/03/18 estradiol 1 mg tablet 1 mg PO DAILY #90 tabs 02/18/20 fluconazole 150 mg tablet 150 mg PO Q3D 2 doses #2 tabs 08/11/20 (Diflucan) blood sugar diagnostic (FreeStyle #300 ea 02/01/21 Test strips) blood-glucose meter (Blood Glucose #1 ea 07/04/21 Monitoring kit) alprazolam 0.5 mg tablet 0.5 mg PO ONCE #2 tabs 09/27/21 fluticasone propionate 44 1 - 2 puff inhalation Q12H #10.6 09/27/21 mcg/actuation HFA aerosol inhaler grams (Flovent HFA) insulin glargine 100 unit/mL (3 80 unit (0.8 mL) SUBCUT BID 90 09/27/21 mL) subcutaneous pen (Lantus days #144 mL Solostar U-100 Insulin) lisinopril 5 mg tablet 5 mg PO DAILY #90 tabs 09/27/21 albuterol sulfate 90 mcg/actuation 2 puff inhalation Q6H PRN 02/21/22 aerosol inhaler shortness of breath or wheezing #8.5 grams omeprazole 40 mg capsule,delayed 40 mg PO DAILY #30 caps 02/21/22 release ondansetron 4 mg disintegrating 4 mg PO Q8H PRN nausea and 02/21/22 tablet vomiting #30 tabs pen needle, diabetic 32 gauge x #100 ea 02/21/2209/25 (Comfort EZ Pen Blue Diamond) rosuvastatin 20 mg tablet 20 mg PO DAILY #90 tabs 02/28/22 dulaglutide 0.75 mg/0.5 mL 0.75 mg (0.5 mL) SUBCUT QWEEK #2 mL 03/28/22 subcutaneous pen injector (Trulicity) sucralfate 1 gram tablet (Carafate) 1 g PO QACHS #40 tabs 04/11/22 Allergies Allergy/AdvReac Type Severity Reaction Status Date / Time codeine [CODEINE] Allergy Severe HIVES AND Verified 04/11/22 12:08 ITCHING ibuprofen [IBUPROFEN] Allergy Severe SEVERE Verified 04/11/22 12:08 ABDOMINAL PAIN AND OTHER STOMACH ISSUES morphine [MORPHINE] Allergy Severe BURNING, Verified 04/11/22 12:08 REDNESS Sulfa (Sulfonamide Allergy Severe HIVES Verified 04/11/22 12:08 Antibiotics) [SULFA (SULFONAMIDE ANTIBIOTICS)] hydrocodone [HYDROCODONE] Allergy Intermediate ITCHING Verified 04/11/22 12:08 venlafaxine AdvReac Severe Depression Verified 04/11/22 12:08 and suicidal thoughts doxycycline [DOXYCYCLINE] AdvReac Intermediate reaction Verified 04/11/22 12:08 to sunlight-burning ketorolac [From TORADOL] AdvReac Intermediate vomiting Verified 04/11/22 12:08 tramadol AdvReac Intermediate Nausea and Verified 04/11/22 12:08 vomiting nitrofurantoin AdvReac Mild NAUSEA AND Verified 04/11/22 12:08 [NITROFURANTOIN] VOMITING Review of Systems Review of Systems ROS Unobtainable: All systems reviewed & are unremarkable except as noted in HPI and below Patient History Medical History Abdominal pain Asthma Dark emesis De Quervain's disease (tenosynovitis) Dental caries Diabetes Dyslipidemia Elevated TSH Essential hypertension Family history of cardiac disorder Gastroenteritis (~07/2017) GERD with esophagitis Hair thinning History of esophagitis History of gastroesophageal reflux (GERD) History of suicide attempt (1995) Hot flashes due to menopause Hyperlipemia Hypertension Hypertensive urgency Left knee pain Noncompliance Onychomycosis of left great toe Scoliosis Screening for malignant neoplasm of colon SOB (shortness of breath) on exertion (07/26/20) Substance abuse Tachycardia (07/26/20) Surgical History History of tonsillectomy Hx of surgical procedure Hx of surgical procedure Hx of tooth extraction S/P bilateral salpingo-oophorectomy (01/18/19) Status post delivery Status post hysterectomy Family History Father Heart disease Diabetes mellitus Mother Cancer Brother Diabetes mellitus Social History household members: friend(s) Smoking Status: Former smoker Tobacco: How many years used: 20 second hand exposure: Yes alcohol intake: current (occasionally during holidays.) substance use type: marijuana Smoking Status: Former smoker alcohol intake frequency: holidays/special occasions only Substance Use Type: former substance user and marijuana Exam Narrative Exam Narrative: GENERAL: Alert and oriented x three, female in mild distress. HEENT: Head normocephalic, atraumatic, EOMI, pupils reactive, face symmetric, moist mucous membranes NECK: Supple, full range of motion CARDIOVASCULAR: Regular rate and rhythm without murmurs, rubs or gallops. RESPIRATORY: Breath sounds equal bilaterally, no wheezes rales or rhonchi. ABDOMEN: Soft, generalized abdominal tenderness. Normoactive bowel sounds all 4 quadrants. No guarding or rebound, rigidity, no mass, mildly distended. : No CVA tenderness EXTREMITIES: Normal range of motion, no clubbing or edema. Neurovascularly intact NEUROLOGICAL: Cranial nerves II through XII grossly intact. Moving all extremities SKIN: Warm, dry, no petechiae, no rashes or lesions. Initial Vital Signs Initial Vital Signs: Vital Signs Temperature 98.6 F 04/11/22 12:01 Pulse Rate 99 H 04/11/22 12:01 Respiratory Rate 16 04/11/22 12:01 Blood Pressure 174/90 H 04/11/22 12:01 Pulse Oximetry 96 04/11/22 12:01 Oxygen Delivery Method 04/11/22 12:01 Course Orders Ordered: ED Orders 04/11/22 12:17 Complete Blood Count AUTO DIFF Stat Comprehensive Metabolic Panel Stat Lipase Stat PTT [Partial Thromboplastin Time] Stat Prothrombin Time INR Stat 04/11/22 12:20 EKG-12 Lead Stat 04/11/22 13:01 CT abdomen pelvis w con Stat Discontinued Medications Al Hydrox/Mg Hydrox/Simethicone 20 ml/ Lidocaine HCl 15 ml 0 ml PO NOW ONE Stop: 04/11/22 13:51 Last Admin: 04/11/22 13:56 Dose: 35 ml Documented By: SB Vital Signs Vital signs: Vital Signs - 8 hr 04/11/22 12:01 04/11/22 14:08 04/11/22 14:38 Temperature 98.6 F Pulse Rate 99 H 99 H 99 H Respiratory Rate 16 Blood Pressure 174/90 H 202/88 H 182/97 H Pulse Oximetry 96 96 96 Oxygen Delivery Method Room Air Room Air Room Air MDM - GI Bleed Lab Data Result diagrams: 04/11/22 12:17 04/11/22 12:17 Labs: Lab Results 04/11/22 04/11/22 04/11/22 Range/Units 12:17 12:17 12:17 WBC 11.1 H (4.5-11.0) X10^3/uL RBC 4.67 (4.0-5.2) X10^6/uL Hgb 14.1 (12.0-16.0) g/dL Hct 42.6 (36-46) % MCV 91.2 (80-100) fL MCH 30.1 (26-34) PG MCHC 33.0 (30-36) % RDW 13.3 (11.6-14.8) % Plt Count 339 (150-400) X10^3/uL Neut % (Auto) 68.9 (50-75) % Lymph % (Auto) 21.3 L (25-40) % [place] % (Auto) 5.8 (3-14) % Eos % (Auto) 3.6 (2-4) % Baso % (Auto) 0.4 (0-2) % Neut # (Auto) 7600 H (1328-8476) /uL Lymph # (Auto) 2400 (4503-8727) /uL [place] # (Auto) 600 (0-900) /uL Eos # (Auto) 400 (0-450) /uL Baso # (Auto) 0 (0-100) /uL PT 11.7 (10.1-12.7) SECONDS INR 1.1 (0.9-1.3) APTT 33 (26.4-36.2) SECONDS Sodium 139 (137-145) mmol/L Potassium 4.2 (3.4-5.1) mmol/L Chloride 100 (98-107) mmol/L Carbon Dioxide 29 (22-32) mmol/L BUN 16 (7-17) mg/dL Creatinine 0.88 (0.52-1.04) mg/dL Estimated GFR > 60 (>60) mL/min BUN/Creatinine Ratio 18.2 (6-22) Glucose 164 H (70-100) mg/dL Calcium 9.6 (8.4-10.2) mg/dL Total Bilirubin 0.7 (0.2-1.3) mg/dL AST 33 (14-36) IU/L ALT 26 (<35) IU/L Alkaline Phosphatase 123 (38-126) U/L Total Protein 9.3 H (6.3-8.2) g/dL Albumin 5.0 (3.5-5.0) g/dL Globulin 4.3 H (1.7-4.1) g/dL Albumin/Globulin Ratio 1.2 (1.0-2.8) Lipase 83 (23-300) U/L Imaging Data CT scan - abdomen/pelvis: Radiologist's Impression: Close Abdomen/Pelvis CT (Signed) Antonio Cardoso - 04/11/22 Launch?[address] [address] [address] Scan Report Signed Patient: Michaela Zaman MR#: [id number] : 1970 Acct:[id number] Age/Sex: 51 / F Date of Service: 07/21/22 Loc: ED Accession Number: [id number] ?? Procedure: CT abdomen pelvis w con Ordering Provider: Alba Hunt D.O. PROCEDURE:? CT ABDOMEN PELVIS W CON ? INDICATIONS:? epigastric abd pain, + 1 episode coffee ground emesis ? TECHNIQUE:? After the administration of IV contrast, axial sections were acquired from the lung bases to the pubic symphysis.? Coronal and sagittal reformats were performed.? For radiation dose reduction, the following was used:? automated exposure control, adjustment of mA and/or kV according to patient size. ? COMPARISON: ? [facility], CT, CT ABDOMEN PELVIS W CON, 04/10/2018, 23:37.? ? FINDINGS:? Image quality:? Excellent.? ? Lung bases:? Unremarkable.? ? There is a small to moderate hiatal hernia seen. Heart:? No significant findings. ? ? ABDOMEN: Liver: Diffuse fatty liver infiltration is noted.? The liver is normal in size and demonstrates no suspicious lesions. Gallbladder:? Unremarkable.? ? Biliary ducts:? Unremarkable.? ? Pancreas:? Unremarkable.? ? Spleen:? Unremarkable.? ? Adrenal Glands:? Unremarkable.? ? Kidneys and Ureters:? Unremarkable.? ? ? Stomach and Bowel:? Mild gastric wall thickening is seen. No dilated loops of small bowel are seen. No significant colonic abnormality is seen.? A normal appendix is incidentally noted.? Peritoneum:? No abnormal intraperitoneal fluid.? No free air.? ? Ventral Wall: ? No hernia.? Abdominal Nodes:? No retroperitoneal or mesenteric adenopathy by size criteria.? Vessels:? Aorta and inferior vena cava are normal in size.? ? PELVIS: Pelvic Organs:? Unremarkable.? ? This patient is status post hysterectomy. No adnexal masses are seen.? Bladder:? Unremarkable.? ? Pelvic Nodes: No enlarged lymph nodes.? Miscellaneous: No inguinal hernias are seen. ? ? ? Bones:? Unremarkable.? IMPRESSION:? ? Mild gastric wall thickening, which is likely on the basis poor distention. ? ? ? Incidental note is made of: Small to moderate hiatal hernia Fatty liver infiltration Hysterectomy ? Dictated by: Antonio Cardoso M.D. on 04/11/2022 at 12:14 ? ? Approved by: Antonio Cardoso M.D. on 04/11/2022 at 12:16?? ECG Data Attestation: I personally reviewed and interpreted this ECG as follows: Interpretation: Sinus rhythm rate of 95 AK 146 QRS is 74 QTC [address]. No acute ST elevation or depression noted. No acute changes from 07/11/20. MDM Narrative Medical decision making narrative: This is a 51-year-old female who presents with persistent chronic epigastric abdominal pain with 1 episode of coffee-ground emesis yesterday with no additional with persistent nausea. Patient had abdominal ultrasound on 03/29/2022 which shows increased hepatic echogenicity likely related to fatty infiltration of liver, no cholelithiasis, no signs of choledocholithiasis gallbladder wall was 2 mm in diameter with no stones, sludge, pericholecystic fluid or sonographic Ryder sign and normal sized biliary ducts and pancreas. Labs today are reassuring, CT abdomen pelvis was obtained as patient is diffusely tender on exam. Mild gastric wall thickening status post hysterectomy with diffuse fatty liver infiltrate and no other acute changes appreciated. Suspect patient may have gastric ulcer or gastritis would likely benefit from E GD. Patient is stable with normal hemoglobin and vitals are stable. Patient seen again after CT. She is open to some pain medication at this time discussed trying a GI cocktail which she is open to. After discussion she has had prior scopes remotely in 2008 which showed bleeding ulcers. She was transferred and scoped at [facility] for possible esophageal tear but states it was negative at that time this was 5 or 6 years ago according to the patient. She is not had any persistent hematemesis or coffee-ground emesis besides 1 episode yesterday with normal vitals, appropriate labs plan for her to continue her Pepcid which is just restarted at the beginning of the month. Nikky gutierrez and follow-up for repeat EGD. Patient given referrals locally as she states it would be difficult for her to return to [facility] for follow-up. Discharge Plan Departure Patient Disposition: Home Clinical Impression: Abdominal pain Instructions: DI for Abdominal Pain-Adult Activity Restrictions/Additional Instructions: Follow up with your physician for recheck and to set up EGD for further evaluation for ulcer vs. gastritis or other cause of your symptoms. I suspect you have an ulcer or possibly gastritis causing her symptoms today. You can follow-up with Gastroenterology or General surgery for EGD and referral is included for both below. Call to set up an appointment. You may continue home medications as prescribed. I would recommend continuing your Pepcid 40 mg daily. Also included is a prescription for carafate prior to meals, prescription sent to [facility] in [place]. Please return for fevers, rapidly worsening pain, persistent vomiting, bright red blood with emesis or vomiting, recurrent black or bloody stools, passing out, new chest pain or shortness of breath or other new or concerning symptoms. Prescriptions: New sucralfate [Carafate] 1 gram tablet 1 g PO QACHS Qty: 40 0RF No Action [Custom Inserts] Qty: 6 0RF (DME) Diabetic shoes & Inserts&Guantlets Qty: 1 0RF Dose Instruction: As directed Rx Instructions: Dispense diabetic shoes(A5500), 3 pairs A5513, 2 units L1902 (DME) FreeStyle Test Strip See Dose Instructions .ROUTE .MEDSUPPLY Qty: 300 3RF Dose Instruction: As directed Rx Instructions: Test Blood sugar 3 times a day, or as directed by provider. estradiol 1 mg tablet 1 mg PO DAILY Qty: 90 3RF chlorhexidine gluconate 0.12 % mouthwash 15 ml BUCCAL BID PRN Rx Instructions: swish one capful (15ml) for 30 seconds twice daily after brushing (DME) blood-glucose meter [Blood Glucose Monitoring] Kit See Rx Instructions .Route Qty: 1 0RF Rx Instructions: As directed albuterol sulfate 90 mcg/actuation HFA aerosol inhaler 2 puff INHALATION Q6H PRN (Reason: shortness of breath or wheezing) Qty: 8.5 5RF (DME) pen needle, diabetic [Comfort EZ Pen Blue Diamond] 32 gauge x 1/4 needle See Rx Instructions .ROUTE .MEDSUPPLY Qty: 100 3RF Rx Instructions: use to inject insulin ondansetron 4 mg tablet,disintegrating 4 mg PO Q8H PRN (Reason: nausea and vomiting) Qty: 30 1RF omeprazole 40 mg capsule,delayed release(DR/EC) 40 mg PO DAILY Qty: 30 1RF Trulicity 0.75 mg/0.5 mL pen injector 0.75 mg SUBCUT QWEEK Qty: 2 1RF fluconazole [Diflucan] 150 mg tablet 150 mg PO Q3D Qty: 2 0RF Rx Instructions: take one dose then if not resolved, may take second dose after three days Flovent HFA 44 mcg/actuation HFA aerosol inhaler 1 - 2 puff inhalation Q12H Qty: 10.6 3RF Lantus Solostar U-100 Insulin 100 unit/mL (3 mL) insulin pen 80 unit SUBCUT BID 90 Days Qty: 144 3RF Rx Instructions: Inject 60-80 units BID lisinopril 5 mg tablet 5 mg PO DAILY Qty: 90 2RF alprazolam 0.5 mg tablet 0.5 mg PO ONCE Qty: 2 0RF Rx Instructions: take 30 minutes prior to procedure, may repeat x 1 time rosuvastatin 20 mg tablet 20 mg PO DAILY Qty: 90 3RF Referrals: Nelsy Perea MD [Physician] - Roby Rios MD [Physician] - Sumanth Verdin ARNP [Primary Care Provider] - Visit Report Forms: Patient Portal/API
--- NOTE | 2022-04-11 13:01 | DI.CT.S_ITS ---
PROCEDURE: CT ABDOMEN PELVIS W CON INDICATIONS: epigastric abd pain, + 1 episode coffee ground emesis TECHNIQUE: After the administration of IV contrast, axial sections were acquired from the lung bases to the pubic symphysis. Coronal and sagittal reformats were performed. For radiation dose reduction, the following was used: automated exposure control, adjustment of mA and/or kV according to patient size. COMPARISON: [facility], CT, CT ABDOMEN PELVIS W CON, 04/10/2018, 23:37. FINDINGS: Image quality: Excellent. Lung bases: Unremarkable. There is a small to moderate hiatal hernia seen. Heart: No significant findings. ABDOMEN: Liver: Diffuse fatty liver infiltration is noted. The liver is normal in size and demonstrates no suspicious lesions. Gallbladder: Unremarkable. Biliary ducts: Unremarkable. Pancreas: Unremarkable. Spleen: Unremarkable. Adrenal Glands: Unremarkable. Kidneys and Ureters: Unremarkable. Stomach and Bowel: Mild gastric wall thickening is seen. No dilated loops of small bowel are seen. No significant colonic abnormality is seen. A normal appendix is incidentally noted. Peritoneum: No abnormal intraperitoneal fluid. No free air. Ventral Wall: No hernia. Abdominal Nodes: No retroperitoneal or mesenteric adenopathy by size criteria. Vessels: Aorta and inferior vena cava are normal in size. PELVIS: Pelvic Organs: Unremarkable. This patient is status post hysterectomy. No adnexal masses are seen. Bladder: Unremarkable. Pelvic Nodes: No enlarged lymph nodes. Miscellaneous: No inguinal hernias are seen. Bones: Unremarkable. IMPRESSION: Mild gastric wall thickening, which is likely on the basis poor distention. Incidental note is made of: Small to moderate hiatal hernia Fatty liver infiltration Hysterectomy Dictated by: Antonio Cardoso M.D. on 04/11/2022 at 12:14 Approved by: Antonio Cardoso M.D. on 04/11/2022 at 12:16
[2022-04-11] MEDS: MAG HYDROX/ALUMINUM/SIMETH SUS 20 ML, LIDOCAINE VISCOUS 2% 15 ML PO (13:56)
[2022-04-11 14:08] VITALS: BP 202/88; PULSE 99; O2SAT 96
--- NOTE | 2022-04-11 14:36 | PC.NURSE ---
1415: Pt ready for discharge. BP was 200/88. Pt reports hx of high BP and taking lisinopril. MD Hunt made aware. Per MD Hunt recheck BP in 15 mins and then OK to discharge if improvement. 1435: BP 182/97.
[2022-04-11 14:38] VITALS: BP 182/97; PULSE 99; O2SAT 96
== END 2022-04-11 14:35 | disposition home or self-care (01) ==
PROVIDERS: Emergency Provider Emergency Medicine; PCP Registered Nurse Diabetes Educator
DX: R10.13 Epigastric pain (principal); R11.2 Nausea with vomiting, unspecified
CPT/HCPCS: 36415; 74177; 80053; 83690; 85025; 85610; 85730; 93005; 93010; 99283; 99284

== ENCOUNTER → 2022-05-06 10:19 | Outpatient (CLI) | payer OTHER, MEDICAID, SELFPAY ==
[2022-05-06 12:15] LABS: COVID19 -Nasal RAPID Negative (Negative)
== END ==
PROVIDERS: PCP Registered Nurse Diabetes Educator; Visit Provider Surgery
DX: Z20.822 Contact with and (suspected) exposure to COVID-19 (principal); Z01.812 Encounter for preprocedural laboratory examination
CPT/HCPCS: 87635; C9803

== ENCOUNTER 2022-05-07 06:33 | Day surgery (SDC) | payer OTHER, MEDICAID, SELFPAY ==
--- NOTE | 2022-05-07 | PATH_ITS ---
[facility] Accession Number: [id number] . 01 Material submitted: . PART A: gastrointestinal site - ANTRUM BIOPSY PART B: esophagus - DISTAL ESOPHAGUS BIOPSY . 01 Diagnosis: A. Antrum, Biopsy: Gastric antral mucosa with minimal chronic inflammation. Negative for Helicobacter organisms by immunohistochemistry. Negative for intestinal metaplasia. Negative for dysplasia or malignancy. . B. Distal Esophagus, Biopsy: Squamocolumnar junctional mucosa with specialized intestinal metaplasia; please see comment. Negative for dysplasia or malignancy. [facility] 05/09/2022 1506 Local . 01 Comment: B. The findings in the distal esophageal biopsy would be consistent with Willis's esophagus in the appropriate endoscopic setting. . 01 Electronically signed: . Rob Mejía MD, PhD, Pathologist NPI- [id number] . 01 Gross description: . Part A: ANTRUM BIOPSY: Received in formalin is 1 fragment(s) of noland, soft tissue measuring 0.3 x 0.3 x 0.2 cm submitted entirely in 1 cassette(s) Part B: DISTAL ESOPHAGUS BIOPSY: Received in formalin are 3 fragment(s) of noland, soft tissue measuring 0.1 x 0.1 x 0.1 cm to 0.3 x 0.1 x 0.1 cm submitted entirely in 1 cassette(s) /[facility] 05/07/2022 2338 Local . 01 Microscopic: . A. An immunohistochemical stain was performed to evaluate for Helicobacter organisms and is negative. The control stain showed appropriate reactivity. . * This test was developed and its performance characteristics determined by [facility]. It has not been cleared or approved by the U.S. Food and Drug Administration. The FDA has determined that such clearance or approval is not necessary. This test is used for clinical purposes. It should not be regarded as investigational or for research. . 01 Pathologist provided ICD-10: K29.70, K22.70 . 01 CPT . 534723, 464952, N26158 Specimen Comment: A courtesy copy of this report has been sent to [phone] Performed at: 01 [facility] [address] [place] [address], [place], [place] [id number] MD Clifton Barahona MD Phone: [phone]
[2022-05-07 07:29] VITALS: BP 142/62; PULSE 88; RESP 16; TEMP 36.7; O2SAT 98
[2022-05-07] MEDS: LACTATED RINGERS 1,000 ML 42 ML IV (07:44)
[2022-05-07 07:45] VITALS: BMI 40.2
--- NOTE | 2022-05-07 07:54 | PM.PREOP ---
Pre-operative Note COVID-19 COVID-19 status: Negative Result date/Date tested (Pos, Neg/Pending): 05/06/22 Interval Note History & Physical reviewed/Exam performed by Physician: Yes Changes to H&P: No ASA Class (for procedural sedation): III
--- NOTE | 2022-05-07 08:19 | PM.OP.EGD ---
Operative Date/Time/Diagnoses Date of procedure: 05/07/22 Time of procedure: 08:19 Pre-op diagnosis: Abdominal pain Post-op diagnosis: same Procedure & Clinicians Study performed: Esophagogastroduodenoscopy Same procedure as scheduled: Yes Indications: Abdominal pain Surgeon: Robin Acuna Procedure Notes Procedure in detail: Surgeon: Robin Acuna MD A timeout was performed. A bite blocked was placed. The patient remained in the supine position on the rney. Monitored anesthesia was administered. The endoscope was inserted through the bite block and passed through the esophagus and stomach and into the duodenum. The duodenal mucosa appeared normal. The scope was withdrawn into the duodenal bulb and no abnormalities were noted. The scope was withdrawn into the stomach. No abnormalities were noted. Random biopsies were taken from the antrum. The rest of the stomach was normal. The scope was retroflexed and no hiatal hernia was noted. The scope was withdrawn into the esophagus and mild distal esophageal esophagitis was noted and random biopsies were taken from the distal esophagus.. The remainder of the esophagus was normal. The scope was withdrawn. The patient was awakened and brought to recovery. Findings: No obvious source for abdominal pain was visualized Post-procedure Recommendations: Will call with biopsy results Disposition: PACU
[2022-05-07 08:20] VITALS: BP 134/78; PULSE 91; RESP 19; TEMP 36.1; O2SAT 97
[2022-05-07 08:25] VITALS: BP 141/81; PULSE 84; RESP 15; O2SAT 99
[2022-05-07 08:35] VITALS: BP 152/92; PULSE 91; RESP 15; O2SAT 95
[2022-05-07 08:37] VITALS: BP 162/91; PULSE 84; RESP 16; TEMP 36.4; O2SAT 96
== END 2022-05-07 08:54 | disposition home or self-care (01) ==
PROVIDERS: PCP Registered Nurse Diabetes Educator; Referring Provider Surgery; Visit Provider Surgery
PROC: 0DJ08ZZ Inspection of Upper Intestinal Tract, Via Natural or Artificial Opening Endoscopic (ICD-10-PCS; CPT 43235; principal; 2022-05-07 07:45)
DX: K29.50 Unspecified chronic gastritis without bleeding (principal); K20.90 Esophagitis, unspecified without bleeding; K44.9 Diaphragmatic hernia without obstruction or gangrene; E66.9 Obesity, unspecified; Z68.41 Body mass index [BMI] 40.0-44.9, adult; K22.70 Barrett's esophagus without dysplasia
CPT/HCPCS: 43239; 00731; J2704

== ENCOUNTER → 2022-05-30 08:55 | Outpatient (CLI) | payer OTHER, MEDICAID, SELFPAY ==
[2022-05-30 09:38] LABS: Add Manual Diff / Slide Review NO; Basophils Absolute Auto 100 /uL (0-100); Basophils Percent Auto 0.7 % (0-2); Eosinophils Absolute Auto 1000 /uL (0-450); Eosinophils Percent Auto 10.8 % (2-4); Hematocrit 39.3 % (36-46); Lymphocytes Absolute Auto 2400 /uL (1100-4500); Lymphocytes Percent Auto 25.2 % (25-40); Mean Corpuscular HGB Conc 32.9 % (30-36); Mean Corpuscular Hemoglobin 30.1 PG (26-34); Mean Corpuscular Volume 91.4 fL (80-100); Monocytes Absolute Auto 400 /uL (0-900); Monocytes Percent Auto 4.6 % (3-14); Neutrophils Absolute Auto 5600 /uL (1500-7000); Neutrophils Percent Auto 58.7 % (50-75); Platelet Count 298 X10^3/uL (150-400); Red Blood Cell Count 4.31 X10^6/uL (4.0-5.2); Red Cell Distribution Width 13.1 % (11.6-14.8); White Blood Cell Count 9.5 X10^3/uL (4.5-11.0)
[2022-05-30 09:44] LABS: Prothrombin Time 11.8 SECONDS (10.1-12.7)
[2022-05-30 09:46] LABS: Hemoglobin A1C% w Est Avg Glu 8.1 % (4.0-6.0)
[2022-05-30 09:50] LABS: Cholesterol 157 mg/dL (140-199); HDL Cholesterol 32 mg/dL (40-60); LDL Cholesterol Calculated 91 mg/dL (<100); Triglycerides 169 mg/dL (35-150)
[2022-05-30 09:50] LABS: Lactate (Lactic Acid) 1.6 mmol/L (0.7-2.1)
[2022-05-30 09:51] LABS: Alanine Aminotransferase 20 IU/L (<35); Albumin 4.5 g/dL (3.5-5.0); Alkaline Phosphatase 102 U/L (38-126); Aspartate Aminotransferase 23 IU/L (14-36); BUN Creatinine Ratio 24.1 (6-22); Bilirubin Total 0.4 mg/dL (0.2-1.3); Blood Urea Nitrogen 21 mg/dL (7-17); C-Reactive Protein Quant 1.4 mg/dL (<1.0); Calcium 9.9 mg/dL (8.4-10.2); Carbon Dioxide 30 mmol/L (22-32); Chloride 104 mmol/L (98-107); Estimated Glomerular Filt Rate > 60 mL/min (>60); Globulin 4.3 g/dL (1.7-4.1); Glucose 150 mg/dL (70-100); HEMOLYSIS < 15 (0-50); Lipase 153 U/L (23-300); Potassium 4.7 mmol/L (3.4-5.1); Sodium 141 mmol/L (137-145); Total Protein 8.8 g/dL (6.3-8.2); Triglycerides 169 mg/dL (35-150)
[2022-05-30 10:18] LABS: Creatinine Urine Random 90.9 mg/dL
[2022-05-30 10:22] LABS: Microalbumi Creatinin Ratio Ur 60.5 ug/mg CR (<30); Microalbumin Urine Random 5.5 mg/dL (0-1.6)
== END ==
PROVIDERS: Pediatrics; PCP Registered Nurse Diabetes Educator; Referring Provider Registered Nurse Diabetes Educator; Visit Provider Registered Nurse Diabetes Educator
DX: E11.65 Type 2 diabetes mellitus with hyperglycemia (principal); E11.8 Type 2 diabetes mellitus with unspecified complications; E88.09 Other disorders of plasma-protein metabolism, not elsewhere classified; Z79.4 Long term (current) use of insulin; E78.5 Hyperlipidemia, unspecified; I10 Essential (primary) hypertension; K92.0 Hematemesis; R10.9 Unspecified abdominal pain
CPT/HCPCS: 36415; 80053; 80061; 82043; 82570; 83036; 83605; 83690; 84478; 85025; 85610; 86140

== ENCOUNTER → 2022-06-07 07:15 | Outpatient (CLI) | payer OTHER, MEDICAID, SELFPAY ==
[2022-06-08 08:16] LABS: IGA 355 mg/dL (87-352); IGG 1521 mg/dL (586-1602); IGM 183 mg/dL (26-217)
[2022-06-08 14:08] LABS: Free Kappa Lt Chains, Serum 42.4 mg/L (3.3-19.4); Free Lambda Lt Chains,Serum 26.2 mg/L (5.7-26.3)
[2022-06-11 14:50] LABS: Albumin 3.9 g/dL (2.9-4.4); Alpha-1-Globulin 0.2 g/dL (0.0-0.4); Alpha-2-Globulin 0.9 g/dL (0.4-1.0); Gamma Globulin 1.6 g/dL (0.4-1.8); Globulin Total 3.9 g/dL (2.2-3.9); Protein, Total 7.8 g/dL (6.0-8.5)
== END ==
PROVIDERS: PCP Registered Nurse Diabetes Educator; Referring Provider Registered Nurse Diabetes Educator; Visit Provider Registered Nurse Diabetes Educator
DX: R77.1 Abnormality of globulin (principal); R77.9 Abnormality of plasma protein, unspecified
CPT/HCPCS: 36415; 82784; 83883; 84155; 84165

== ENCOUNTER → 2022-09-04 09:11 | Outpatient (CLI) | payer OTHER, MEDICAID, SELFPAY ==
[2022-09-04 10:32] LABS: Creatinine Urine Random 127.6 mg/dL
[2022-09-04 10:37] LABS: Microalbumi Creatinin Ratio Ur 91.6 ug/mg CR (<30); Microalbumin Urine Random 11.7 mg/dL (0-1.6)
[2022-09-04 10:57] LABS: Hemoglobin A1C% w Est Avg Glu 7.9 % (4.0-6.0)
[2022-09-04 11:24] LABS: C-Reactive Protein Quant 0.6 mg/dL (<1.0)
== END ==
PROVIDERS: PCP Registered Nurse Diabetes Educator; Referring Provider Registered Nurse Diabetes Educator; Visit Provider Registered Nurse Diabetes Educator
DX: E11.65 Type 2 diabetes mellitus with hyperglycemia (principal); E11.8 Type 2 diabetes mellitus with unspecified complications; R79.82 Elevated C-reactive protein (CRP); R80.9 Proteinuria, unspecified; Z79.4 Long term (current) use of insulin
CPT/HCPCS: 36415; 82043; 82570; 83036; 86140

== ENCOUNTER → 2022-12-02 08:37 | Outpatient (CLI) | payer OTHER, MEDICAID, SELFPAY ==
[2022-12-02 10:16] LABS: Hemoglobin A1C% w Est Avg Glu 8.1 % (4.0-6.0)
[2022-12-02 10:27] LABS: Creatinine Urine Random 153.8 mg/dL
[2022-12-02 10:47] LABS: Microalbumi Creatinin Ratio Ur 87.1 ug/mg CR (<30); Microalbumin Urine Random 13.4 mg/dL (0-1.6)
== END ==
PROVIDERS: PCP Registered Nurse Diabetes Educator; Referring Provider Registered Nurse Diabetes Educator; Visit Provider Registered Nurse Diabetes Educator
DX: E11.65 Type 2 diabetes mellitus with hyperglycemia (principal); R80.9 Proteinuria, unspecified; Z79.4 Long term (current) use of insulin
CPT/HCPCS: 36415; 82043; 82570; 83036

== ENCOUNTER → 2022-12-04 10:37 | Outpatient (CLI) | payer OTHER, MEDICAID, SELFPAY ==
--- NOTE | 2022-12-04 10:38 | DI.RAD.S_ITS ---
PROCEDURE: XR CHEST 2V INDICATIONS: eval cough/SOB. r/o pneumonia TECHNIQUE: 2 views of the chest were acquired. COMPARISON: [facility], CR, XR CHEST 2V, 08/11/2020, 10:09. FINDINGS: Surgical changes and devices: None. Lungs and pleura: Lungs are clear. No pleural effusions or pneumothorax. Mediastinum: Mediastinal contours are normal. Heart size is normal. Bones and chest wall: No suspicious bony abnormalities. Soft tissues appear unremarkable. IMPRESSION: No acute cardiopulmonary pathology. Dictated by: Pete Fields M.D. on 12/04/2022 at 11:23 Approved by: Pete Fields M.D. on 12/04/2022 at 11:26
== END ==
PROVIDERS: PCP Registered Nurse Diabetes Educator; Referring Provider Registered Nurse Diabetes Educator; Visit Provider Registered Nurse Diabetes Educator
DX: J40 Bronchitis, not specified as acute or chronic (principal); R06.00 Dyspnea, unspecified
CPT/HCPCS: 71046

== ENCOUNTER → 2023-03-26 07:52 | Outpatient (CLI) | payer OTHER, MEDICAID, SELFPAY ==
[2023-03-26 08:49] LABS: Add Manual Diff / Slide Review NO; Basophils Absolute Auto 100 /uL (0-100); Basophils Percent Auto 0.6 % (0-2); Eosinophils Absolute Auto 700 /uL (0-450); Eosinophils Percent Auto 7.4 % (2-4); Hematocrit 37.5 % (36-46); Hemoglobin 12.7 g/dL (12.0-16.0); Lymphocytes Absolute Auto 2500 /uL (1100-4500); Mean Corpuscular HGB Conc 33.8 % (30-36); Mean Corpuscular Hemoglobin 30.8 PG (26-34); Monocytes Absolute Auto 700 /uL (0-900); Neutrophils Absolute Auto 5700 /uL (1500-7000); Platelet Count 297 X10^3/uL (150-400); Red Blood Cell Count 4.11 X10^6/uL (4.0-5.2); White Blood Cell Count 9.6 X10^3/uL (4.5-11.0)
[2023-03-26 09:00] LABS: Alanine Aminotransferase 22 IU/L (<35); Albumin 4.1 g/dL (3.5-5.0); Albumin Globulin Ratio 1.1 (1.0-2.8); Alkaline Phosphatase 93 U/L (38-126); Aspartate Aminotransferase 23 IU/L (14-36); BUN Creatinine Ratio 16.5 (6-22); Bilirubin Total 0.5 mg/dL (0.2-1.3); Blood Urea Nitrogen 15 mg/dL (7-17); Calcium 9.3 mg/dL (8.4-10.2); Carbon Dioxide 27 mmol/L (22-32); Chloride 102 mmol/L (98-107); Cholesterol 188 mg/dL (140-199); Estimated Glomerular Filt Rate > 60 mL/min (>60); Globulin 3.6 g/dL (1.7-4.1); Glucose 103 mg/dL (70-100); HDL Cholesterol 44 mg/dL (40-60); HEMOLYSIS < 15 (0-50); LDL Cholesterol Calculated 97 mg/dL (<100); Sodium 139 mmol/L (137-145); Total Protein 7.7 g/dL (6.3-8.2); Triglycerides 236 mg/dL (35-150)
[2023-03-26 09:42] LABS: Creatinine Urine Random 109.4 mg/dL
[2023-03-26 09:48] LABS: Microalbumin Urine Random 4.6 mg/dL (0-1.6)
[2023-03-26 09:59] LABS: Free T4, Direct Thyroxine 0.85 ng/dL (0.78-2.19)
[2023-03-27 04:38] LABS: x Labcorp Estim. Avg Glu (eAG) 189 mg/dL (.); x Labcorp Hemoglobin A1c 8.2 % (4.8-5.6)
== END ==
PROVIDERS: PCP Registered Nurse Diabetes Educator; Referring Provider Internal Medicine Endocrinology, Diabetes & Metabolism; Visit Provider Internal Medicine Endocrinology, Diabetes & Metabolism
DX: E03.9 Hypothyroidism, unspecified (principal); E11.65 Type 2 diabetes mellitus with hyperglycemia; D47.2 Monoclonal gammopathy; E11.8 Type 2 diabetes mellitus with unspecified complications; E66.9 Obesity, unspecified; E78.2 Mixed hyperlipidemia; E78.5 Hyperlipidemia, unspecified; I10 Essential (primary) hypertension; L65.9 Nonscarring hair loss, unspecified; R79.89 Other specified abnormal findings of blood chemistry; R89.9 Unspecified abnormal finding in specimens from other organs, systems and tissues; Z79.4 Long term (current) use of insulin
CPT/HCPCS: 36415; 80053; 80061; 82043; 82570; 83036; 84439; 84443; 85025

== ENCOUNTER 2023-03-27 17:18 | Emergency (ER) | payer OTHER, MEDICAID, SELFPAY ==
[2023-03-27 17:24] VITALS: BP 155/78; PULSE 105; RESP 18; TEMP 36.8; O2SAT 96; BMI 41.5
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
--- NOTE | 2023-03-27 18:07 | DI.RAD.S_ITS ---
PROCEDURE: XR KNEE LT 3V INDICATIONS: Pain in left knee TECHNIQUE: 3 views of the knee were acquired. COMPARISON: [facility], , XR KNEE LT 3V, 10/16/2019, 20:23. FINDINGS: Bones: No fractures or dislocations. No suspicious bony lesions. Soft tissues: Small joint effusion. No suspicious soft tissue calcifications. IMPRESSION: No acute osseous abnormality. Dictated by: Erik Stallings M.D. on 03/27/2023 at 20:18 Approved by: Erik Stallings M.D. on 03/27/2023 at 20:19
[2023-03-27 20:22] VITALS: BP 142/80; PULSE 88; RESP 18; TEMP 36.6; O2SAT 98
== END 2023-03-27 20:22 | disposition home or self-care (01) ==
PROVIDERS: Emergency Provider Physician Assistant; PCP Registered Nurse Diabetes Educator
DX: S80.02XA Contusion of left knee, initial encounter (principal); S09.93XA Unspecified injury of face, initial encounter; W22.8XXA Striking against or struck by other objects, initial encounter
CPT/HCPCS: 73562; 99281; 99283

== ENCOUNTER → 2023-06-27 08:18 | Outpatient (CLI) | payer OTHER, MEDICAID, SELFPAY ==
[2023-06-27 09:07] LABS: Hemoglobin A1C% w Est Avg Glu 8.9 % (4.0-6.0)
[2023-06-27 09:13] LABS: Blood Urea Nitrogen 16 mg/dL (7-17); Calcium 9.8 mg/dL (8.4-10.2); Carbon Dioxide 27 mmol/L (22-32); Chloride 102 mmol/L (98-107); Cholesterol 214 mg/dL (140-199); Estimated Glomerular Filt Rate > 60 mL/min (>60); Glucose 83 mg/dL (70-100); HDL Cholesterol 50 mg/dL (40-60); HEMOLYSIS 39 (0-50); LDL Cholesterol Calculated 125 mg/dL (<100); Potassium 4.4 mmol/L (3.4-5.1); Sodium 140 mmol/L (137-145); Triglycerides 194 mg/dL (35-150)
[2023-06-27 10:33] LABS: Creatinine Urine Random 156.2 mg/dL
[2023-06-27 10:49] LABS: Microalbumin Urine Random 21.4 mg/dL (0-1.6)
== END ==
PROVIDERS: PCP Registered Nurse Diabetes Educator; Referring Provider Internal Medicine Endocrinology, Diabetes & Metabolism; Visit Provider Internal Medicine Endocrinology, Diabetes & Metabolism
DX: E11.65 Type 2 diabetes mellitus with hyperglycemia (principal)
CPT/HCPCS: 36415; 80048; 80061; 82043; 82570; 83036

== ENCOUNTER → 2023-09-30 09:07 | Outpatient (CLI) | payer OTHER, MEDICAID, SELFPAY ==
[2023-09-30 09:44] LABS: Hemoglobin A1C% w Est Avg Glu 8.2 % (4.0-6.0)
[2023-09-30 10:04] LABS: Alanine Aminotransferase 20 IU/L (<35); Albumin 4.2 g/dL (3.5-5.0); Alkaline Phosphatase 101 U/L (38-126); Aspartate Aminotransferase 24 IU/L (14-36); Bilirubin Total 0.4 mg/dL (0.2-1.3); Blood Urea Nitrogen 12 mg/dL (7-17); Calcium 9.7 mg/dL (8.4-10.2); Carbon Dioxide 30 mmol/L (22-32); Chloride 100 mmol/L (98-107); Cholesterol 171 mg/dL (140-199); Estimated Glomerular Filt Rate > 60 mL/min (>60); Globulin 4.1 g/dL (1.7-4.1); Glucose 143 mg/dL (70-100); HDL Cholesterol 39 mg/dL (40-60); HEMOLYSIS < 15 (0-50); LDL Cholesterol Calculated 75 mg/dL (<100); Potassium 4.4 mmol/L (3.4-5.1); Sodium 139 mmol/L (137-145); Total Protein 8.3 g/dL (6.3-8.2); Triglycerides 285 mg/dL (35-150)
[2023-09-30 10:38] LABS: TSH w/ Reflex to FT4 4.84 uIU/mL (0.47-4.68)
[2023-09-30 10:48] LABS: Creatinine Urine Random 106.3 mg/dL
[2023-09-30 11:48] LABS: HEMOLYSIS < 15 (0-50); Iron 63 ug/dL (37-170)
[2023-09-30 12:00] LABS: Percent Iron Saturation 23 % (15-50); Total Iron Binding Capacity 280 ug/dL (265-497); Transferrin 244 mg/dL (206-381)
[2023-09-30 12:02] LABS: Free T4, Direct Thyroxine 0.86 ng/dL (0.78-2.19)
[2023-09-30 12:24] LABS: Ferritin 27 ng/mL (11-264)
[2023-09-30 18:38] LABS: Microalbumi Creatinin Ratio Ur 17.8 ug/mg CR (<30); Microalbumin Urine Random 1.9 mg/dL (0-1.6)
== END ==
LOC: LAB 09:08
PROVIDERS: PCP Registered Nurse Diabetes Educator; Referring Provider Registered Nurse Diabetes Educator; Visit Provider Registered Nurse Diabetes Educator
DX: E11.8 Type 2 diabetes mellitus with unspecified complications (principal); E11.65 Type 2 diabetes mellitus with hyperglycemia; R79.89 Other specified abnormal findings of blood chemistry; E78.5 Hyperlipidemia, unspecified; I10 Essential (primary) hypertension; L65.0 Telogen effluvium; Z79.4 Long term (current) use of insulin
CPT/HCPCS: 36415; 80053; 80061; 82043; 82570; 82728; 83036; 83540; 83550; 84439; 84443

== ENCOUNTER → 2023-12-30 07:18 | Outpatient (CLI) | payer OTHER, MEDICAID, SELFPAY ==
[2023-12-30 08:02] LABS: Hemoglobin A1C% w Est Avg Glu 8.8 % (4.0-6.0)
== END ==
PROVIDERS: PCP Registered Nurse Diabetes Educator; Referring Provider Registered Nurse Diabetes Educator; Visit Provider Registered Nurse Diabetes Educator
DX: E11.8 Type 2 diabetes mellitus with unspecified complications (principal); E11.65 Type 2 diabetes mellitus with hyperglycemia; Z79.4 Long term (current) use of insulin
CPT/HCPCS: 36415; 83036

== ENCOUNTER → 2024-03-26 13:30 | Outpatient (CLI) | payer OTHER, MEDICAID, SELFPAY ==
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
== END ==
PROVIDERS: PCP Registered Nurse Diabetes Educator; Referring Provider Registered Nurse Diabetes Educator
DX: E11.9 Type 2 diabetes mellitus without complications (principal); Z79.4 Long term (current) use of insulin
CPT/HCPCS: 97802

== ENCOUNTER → 2024-05-13 13:37 | Outpatient (CLI) | payer OTHER, MEDICAID, SELFPAY ==
--- NOTE | 2024-05-13 14:42 | DIAB.FU ---
Follow-up Diabetes Education Assessment Name: Michaela Zaman (Nuris) Dx: Type II Diabetes Date: 05/13/24 Time: 2-3p Dx: Type II Diabetes Nuris presents for DM visit. Dx with T2DM in 2008. Eating small portions due to recent emesis, which she attributes to Trulicity. Discontinued Trulicity. States her BG have been elevated since switching insulins. Reports FBG of 199mg/dl today. Still using Lantus in the morning to try to bring down BG in the morning when elevated. Did discuss risks of hypoglycemia with multiple insulin types. States she feels comfortable managing and avoiding hypo. States she treats lows with peanut butter. Offered CGM sample, she is adamantly against a CGM, even after extensive discussion on benefits. Prior to mixed insulin, took Lantus 1-2x per day 60-80u and states FBG was <100mg/dl. Reports her granddaughter knows to how to check Nuris's blood sugars, when to call 911, and how to help in hypoglycemic event. Rotating injection sites. Has some scar tissue from past sx but not from injections per report. States ex has not been very supportive of foods needed for her DM management. Using syriac muffins for sandwiches. Choosing low carb snacks. Diet recall: 6-8a: if BG under 80: bowl of cereal OR oatmeal OR cream of wheat If BG over 80mg/dl eats later at 10-11a 11a-3p: Engish muffin sourdough sandwich with meat and cheese sn: nothing 5-8p: pork chop OR sloppy tien x 3 bun with cheese 8-10p: pickles Beverages: water, sometimes coffee with coconut creamer Anthropometrics: Ht: 5'2 Wt: 215# 12/2023 at PCP visit Weight history: 385# in 20s. Has seen RDs and MDs for wt loss my whole life. Physical Activity: Averages 7863-7887 steps per day. Walking for transportation. Self-Monitoring Blood Glucose: Checks blood sugars at wrist due to fear of needle stick on fingers. Is not open to CGM. States she does not want people to know she has diabetes and feels they fall off and does not want to prick herself more. After addressing these concerns, she still does not want a CGM sample. Reports checking FBG and HS: FBG often over 200mg/dl with recent readings of 200-300mg/dl per report; HS range from 300-400mg/dl. Diabetes Medications: 70/30 NPH 40u before dinner Lantus prn per report Pertinent Labs: HgA1c: 8.2% 09/2023 8.8% 12/2023 Past Medical History: (Last Updated 01/03/24 @ 12:45 by SYLVIA Roy) Abdominal pain Asthma Barretts esophagus Dark emesis De Quervain's disease (tenosynovitis) lt. Dental caries Diabetes Diabetes mellitus type 2, with complication, on alf insulin pump Dyslipidemia Elevated TSH Essential hypertension Family history of cardiac disorder Gastroenteritis (~07/2017) GERD with esophagitis Hair thinning History of esophagitis History of gastroesophageal reflux (GERD) History of suicide attempt (1995) Hot flashes due to menopause Hyperlipemia Hypertension Hypertensive urgency Left knee pain Noncompliance Onychomycosis of left great toe Recurrent vertigo Scoliosis Screening for malignant neoplasm of colon SOB (shortness of breath) on exertion (07/26/20) climbing 4 flights of steps Substance abuse former illicit drug use Tachycardia (07/26/20) after climbing four flights of steps Intervention: This participant was very receptive. Provided appropriate educational handouts. Discussed the following topics: Rule of 15 to treat lows Risk of lows with insulin types Action and precautions with insulin types Need to reach out to endo radha Benefits of CGM use Created SMART goals for patient self-care and success. Goals: Try new breakfast- not met Add veggies to dinner- not met Choose lean proteins - met Bring BG journal next visit- new Call endo radha- new Follow-up: MARIO OWENS follow-up in 3-4 weeks or sooner luis a Chung RDN, [facility] Certified [facility] and [employer] P: [phone] Thank you for this referral
== END ==
PROVIDERS: PCP Registered Nurse Diabetes Educator; Referring Provider Registered Nurse Diabetes Educator
DX: E11.8 Type 2 diabetes mellitus with unspecified complications (principal); E11.65 Type 2 diabetes mellitus with hyperglycemia; Z79.4 Long term (current) use of insulin; Z71.3 Dietary counseling and surveillance
CPT/HCPCS: G0108

== ENCOUNTER → 2024-06-10 15:49 | Outpatient (CLI) | payer OTHER, MEDICAID, SELFPAY ==
--- NOTE | 2024-07-08 15:26 | DIAB.FU ---
Follow-up Diabetes Education Assessment Name: Michaela Zaman (Nuris) Date: 06/10/24 Time: 4-5p Dx: Type II Diabetes Nuris presents for DM visit. Nuris reports improved BM. States that pickle juice tends to help with constipation for her. Also endorses some wt loss. Declines wt today, but states clothes are fitting better. Has endo visit next month. Also PCP visit next month. Endoreses h/o lows with symptoms of feeling sweaty, fast HR and shaky. None as of recent. In 2010 she did need MDI therapy. States fast acting insulin scares her due to risk of lows and not wanting CGM. Diet recall indicates some high CHO intake at breakfast. More moderate intake at dinner. When she does not eat morning meal (3-4x per week) will skip morning insulin dose. Anthropometrics: Ht: 5'2 Wt: 215# 12/2023 at PCP visit Weight history: 385# in 20s. Has seen RDs and MDs for wt loss my whole life. Physical Activity: Averages 5448-6612 steps per day. Walking for transportation. Self-Monitoring Blood Glucose: Checks blood sugars at wrist due to fear of needle stick on fingers. Is not open to CGM. States she does not want people to know she has diabetes and feels they fall off and does not want to prick herself more. After addressing these concerns, she still does not want a CGM sample. Reports checking FBG and HS: FBG usually 200-300, more recent values of 230, 167, 356 reported. One instance of 97 mg/dl. Hs readings often 190-400mg/dl. Diabetes Medications: 70/30 NPH 40u before dinner Lantus prn per report Pertinent Labs: HgA1c: 8.2% 09/2023 8.8% 12/2023 Past Medical History: (Last Updated 01/03/24 @ 12:45 by SYLVIA Roy) Abdominal pain Asthma Barretts esophagus Dark emesis De Quervain's disease (tenosynovitis) lt. 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 Dyslipidemia Elevated TSH Essential hypertension Family history of cardiac disorder Gastroenteritis (~07/2017) GERD with esophagitis Hair thinning History of esophagitis History of gastroesophageal reflux (GERD) History of suicide attempt (1995) Hot flashes due to menopause Hyperlipemia Hypertension Hypertensive urgency Left knee pain Noncompliance Onychomycosis of left great toe Recurrent vertigo Scoliosis Screening for malignant neoplasm of colon SOB (shortness of breath) on exertion (07/26/20) climbing 4 flights of steps Substance abuse former illicit drug use Tachycardia (07/26/20) after climbing four flights of steps Intervention: This participant was very receptive. Provided appropriate educational handouts. Discussed the following topics: Insulin actions Maggy phenomenon Nutrition recommendations and portion reduction for CHO Impact of wt loss on BG Created SMART goals for patient self-care and success. Goals: Bring BG journal next visit- not met Call endo radha- continue Bring BG- new Keep up walks- new Follow-up: MARIO OWENS follow-up in 2-3 weeks Amira Chung RDN, ROMAN Certified Diabetes Care and Retort Furnace Operator P: [phone] Thank you for this referral
== END ==
PROVIDERS: PCP Registered Nurse Diabetes Educator; Referring Provider Registered Nurse Diabetes Educator
DX: E11.9 Type 2 diabetes mellitus without complications (principal); Z71.3 Dietary counseling and surveillance; Z79.4 Long term (current) use of insulin
CPT/HCPCS: G0108

== ENCOUNTER 2024-06-23 17:05 | Emergency (ER) | payer OTHER, MEDICAID, SELFPAY ==
[2024-06-23 17:20] VITALS: BP 210/100; PULSE 113; RESP 17; TEMP 36.8; O2SAT 97; BMI 38.5
--- NOTE | 2024-06-23 17:36 | DI.RAD.S_ITS ---
PROCEDURE: XR CHEST 2V INDICATIONS: Cough x 1 week TECHNIQUE: 2 views of the chest were acquired. COMPARISON: [facility], SUZANNE, XR CHEST 2V, 12/04/2022, 10:50. [facility], CR, XR CHEST 2V, 08/11/2020, 10:09. FINDINGS: Surgical changes and devices: None. Lungs and pleura: Lungs are clear. No pleural effusions or pneumothorax. Mediastinum: Mediastinal contours are normal. Heart size is normal. Bones and chest wall: No suspicious bony abnormalities. Soft tissues appear unremarkable. IMPRESSION: No acute cardiopulmonary abnormality is seen. Approved by: Erick Kelly M.D. on 06/23/2024 at 18:35
[2024-06-23 17:43] VITALS: BP 199/99
[2024-06-23] MEDS: SODIUM CHLORIDE 0.9% 1,000 ML 1000 ML IV ×2 (17:55→18:35)
[2024-06-23 18:12] LABS: Appearance Urine UA CLEAR; Bilirubin Urine UA NEGATIVE (NEGATIVE); Color Urine UA YELLOW; Glucose Urine UA 3+ g/dL (Negative); Ketones Urine UA NEGATIVE (NEGATIVE); Leukocyte Esterase Urine UA NEGATIVE (NEGATIVE); Nitrite Urine UA NEGATIVE (Negative); Occult Blood Urine UA TRACE-INTACT (Negative); Protein Urine UA NEGATIVE (Negative); Urobilinogen Urine UA 0.2 E.U./dL (0.2)
[2024-06-23 18:26] LABS: Bacteria Urine Few (2-10); Culture Indicated Urine Cult Not Indicated; RBC Urine 0-1/HPF (0-5/HPF); Squamous Epithelial Cell Urine 0-1 /HPF (0-5/HPF); Urine Volume 10mL (spun); WBC Urine 0-1/HPF (0-5/HPF)
--- NOTE | 2024-06-23 18:38 | ED_ITS ---
<Statement entered by Landon Su DO - 06/24/24 07:06> Dr. Su: I was immediately available in the department for consultation. Documentation has been reviewed. I agree with assessment and plan. HPI - URI/Sore Throat General Chief Complaint: Upper Respiratory Symptoms Stated Complaint: sinus infection Time Seen by Provider: 06/23/24 17:12 Source: family Mode of arrival: Ambulatory History of Present Illness HPI Narrative: This patient is a 54-year-old female with poorly controlled diabetes and was seen at the walk-in clinic affiliated with this organization last week. She was prescribed ipratropium as well as benzonatate. Her cough related symptoms have improved significantly but the patient is beginning to experience worsening sinusitis related symptoms. She states that there is green discharge from the nares without hemoptysis. No treatments have been tried for this. She denies night sweats, fever, chills, chest pain, shortness of breath, neck pain, rash, or GI related symptoms such as nausea, vomiting, diarrhea. Related Data Home Medications Medication Instructions Recorded Confirmed pen needle, diabetic 31 gauge x #100 ea 07/09/23 06/17/2409/25 (TRUEplus Pen Needle) insulin lispro protamine-lispro 40 unit SUBCUT QPM 03/30/24 06/17/24 100 unit/mL (75-25) subcutaneous pen ipratropium bromide 42 mcg (0.06 2 spray intranasal TID 06/23/24 06/23/24 %) nasal spray Previous Rx's Medication Instructions Recorded [Custom Inserts] units ##6 06/11/17 Diabetic shoes & Inserts&Guantlets #1 ea 02/03/18 blood-glucose meter (Blood Glucose #1 ea 07/04/21 Monitoring kit) alprazolam 0.5 mg tablet 0.5 mg PO ONCE #2 tabs 09/27/21 blood sugar diagnostic (FreeStyle #300 ea 03/26/23 Test strips) insulin glargine 100 unit/mL (3 80 unit (0.8 mL) SUBCUT BID 90 09/30/23 mL) subcutaneous pen (Lantus days #144 mL Solostar U-100 Insulin) fluconazole 150 mg tablet 150 mg PO DAILY #1 tab 12/26/23 pen needle, diabetic 32 gauge x #100 ea 12/30/2309/25 (Comfort EZ Pen [place]) albuterol sulfate 90 mcg/actuation 2 puff inhalation Q6H PRN 03/30/24 aerosol inhaler shortness of breath or wheezing #8.5 grams fluticasone propionate 44 1 - 2 puff inhalation Q12H #10.6 03/30/24 mcg/actuation HFA aerosol inhaler grams lisinopril 5 mg tablet 5 mg PO DAILY #90 tabs 03/30/24 ondansetron 4 mg disintegrating 4 mg PO Q8H PRN nausea and 03/30/24 tablet vomiting #30 tabs rabeprazole 20 mg tablet,delayed 20 mg PO BID #180 tabs 03/30/24 release (AcipHex) rosuvastatin 20 mg tablet 20 mg PO DAILY #90 tabs 03/30/24 benzonatate 200 mg capsule 200 mg PO BID PRN cough #28 caps 06/17/24 amoxicillin 875 mg-potassium 1 tab PO BID #20 tabs 06/23/24 clavulanate 125 mg tablet Allergies Allergy/AdvReac Type Severity Reaction Status Date / Time codeine [CODEINE] Allergy Severe HIVES AND Verified 06/23/24 17:20 ITCHING ibuprofen [IBUPROFEN] Allergy Severe SEVERE Verified 06/23/24 17:20 ABDOMINAL PAIN AND OTHER STOMACH ISSUES morphine [MORPHINE] Allergy Severe BURNING, Verified 06/23/24 17:20 REDNESS Sulfa (Sulfonamide Allergy Severe HIVES Verified 06/23/24 17:20 Antibiotics) [SULFA (SULFONAMIDE ANTIBIOTICS)] hydrocodone [HYDROCODONE] Allergy Intermediate ITCHING Verified 06/23/24 17:20 venlafaxine AdvReac Severe Depression Verified 06/23/24 17:20 and suicidal thoughts doxycycline [DOXYCYCLINE] AdvReac Intermediate reaction Verified 06/23/24 17:20 to sunlight-burning ketorolac [From TORADOL] AdvReac Intermediate vomiting Verified 06/23/24 17:20 tramadol AdvReac Intermediate Nausea and Verified 06/23/24 17:20 vomiting nitrofurantoin AdvReac Mild NAUSEA AND Verified 06/23/24 17:20 [NITROFURANTOIN] VOMITING Review of Systems Review of Systems Narrative: General: See HPI HEENT: See HPI All review of systems have been reviewed and are ultimately negative unless otherwise stated in the HPI. Patient History Medical History (Updated 06/23/24 @ 18:33 by Rob Palma PA-C) Diabetes mellitus type 2, with complication, on half-way insulin pump Recurrent vertigo Barretts esophagus Hypertensive urgency History of esophagitis History of gastroesophageal reflux (GERD) Dark emesis Abdominal pain Dyslipidemia Onychomycosis of left great toe History of suicide attempt (1995) Essential hypertension Noncompliance GERD with esophagitis Family history of cardiac disorder Tachycardia (07/26/20) SOB (shortness of breath) on exertion (07/26/20) Dental caries Elevated TSH Screening for malignant neoplasm of colon Hair thinning Hot flashes due to menopause Left knee pain Gastroenteritis (~07/2017) Hypertension Scoliosis Substance abuse De Quervain's disease (tenosynovitis) Asthma Hyperlipemia Diabetes Surgical History S/P bilateral salpingo-oophorectomy (01/18/19) Hx of tooth extraction Hx of surgical procedure Hx of surgical procedure History of tonsillectomy Status post delivery Status post hysterectomy Family History Father Heart disease Diabetes mellitus Mother Cancer Brother Diabetes mellitus Social History household members: friend(s) Smoking Status: Former smoker Tobacco: How many years used: 20 second hand exposure: Yes alcohol intake: current substance use type: marijuana Smoking Status: Former smoker alcohol intake frequency: holidays/special occasions only Substance Use Type: former substance user and marijuana Exam Initial Vital Signs Initial Vital Signs: Vital Signs Temperature 98.2 F 06/23/24 17:20 Pulse Rate 113 H 06/23/24 17:20 Respiratory Rate 17 06/23/24 17:20 Blood Pressure 210/100 H 06/23/24 17:20 Pulse Oximetry 97 06/23/24 17:20 Oxygen Delivery Method Room Air 06/23/24 17:20 Const General: cooperative and comfortable HENMT Head: normal to inspection, normocephalic and atraumatic Ears: hearing grossly normal bilaterally, external ears normal and TM's normal bilaterally Face and sinus: sinus tenderness Eyes General: Yes appearance normal, both eyes and all related structures Conjunctivae: conjunctivae normal Neck Neck: normal visual inspection and full ROM Resp Effort & Inspection: normal respiratory effort and able to speak in complete sentences Auscultation: clear to auscultation bilaterally Cardio Rate: regular rate (Pulse normalized after 2 L of normal saline) and tachycardic Back/Spine/Pelvis Back: normal to inspection Skin General: no rashes or lesions noted, elasticity normal and turgor normal Neuro General: patient alert, patient awake, patient oriented x3, gait normal, moves all extremities, no focal motor deficits and CN's II-XI intact bilaterally Extrem General: normal to inspection and full ROM Psych Appearance: grossly normal Course Course Course Narrative: Patient was seen and examined. An IV was established and she received 2 L of normal saline. This normalized the patient's pulse. A two-view chest x-ray was ordered, interpreted by myself not reveal any obvious pneumonia urinalysis was also ordered and ketones were not noted. Patient was informed of the negative findings and she was then prepped for discharge home. Orders Ordered: ED Orders 06/23/24 17:36 Chest [XR chest 2V] Stat 06/23/24 18:00 Urinalysis and Microscopic Stat Sodium Chloride (Normal Saline 0.9%) 1,000 mls @ 1,000 mls/hr IV BOLUS ONE Stop: 06/23/24 18:55 Last Admin: 06/23/24 18:35 Dose: 1,000 mls/hr Documented By: AILEEN Discontinued Medications Sodium Chloride (Normal Saline 0.9%) 1,000 mls @ 2,000 mls/hr IV BOLUS ONE Stop: 06/23/24 17:59 Last Admin: 06/23/24 17:55 Dose: 1,000 mls/hr Documented By: AILEEN Vital Signs Vital signs: Vital Signs - 8 hr 06/23/24 17:20 06/23/24 17:43 Temperature 98.2 F Pulse Rate 113 H Respiratory Rate 17 Blood Pressure 210/100 H 199/99 H Pulse Oximetry 97 Oxygen Delivery Method Room Air MDM - URI/Sore Throat Differential Diagnosis Differential diagnosis: Likely upper respiratory infection, otitis media, sinusitis, viral infection, bronchitis and other Medical Records Attestation: I reviewed the patient's medical records. Lab Data Attestation: I reviewed the patient's lab results. Labs: Lab Results 06/23/24 Range/Units 18:00 Urine Color Yellow Urine Appearance Clear Urine pH 6.0 (4.5-8.0) Ur Specific [place] 1.010 (1.000-1.035) Urine Protein Negative (Negative) Urine Glucose (UA) 3+ H (Negative) g/dL Urine Ketones Negative (NEGATIVE) Urine Occult Blood Trace-intact (Negative) Urine Nitrate Negative (Negative) Urine Bilirubin Negative (NEGATIVE) Urine Urobilinogen 0.2 (0.2) E.U./dL Ur Leukocyte Esterase Negative (NEGATIVE) Urine RBC 0-1/hpf (0-5/HPF) Urine WBC 0-1/hpf (0-5/HPF) Ur Squamous Epith Cells 0-1 /hpf D (0-5/HPF) Urine Bacteria Few (2-10) H (None) Ur Culture Indicated? Cult not indicated Vol Urine Centrifuged 10ml (spun) Point of Care Testing Glucose POC 341 Imaging Data Chest x-ray: My Impression: According to my interpretation, I do not visualize any acute consolidation, free air, pneumothorax MDM Narrative Medical decision making narrative: This patient is a 54-year-old female as insulin-dependent from a diabetes standpoint. She apparently did not give herself insulin earlier today. She has been experiencing URI versus bronchitis related symptoms and worsening sinusitis symptoms over the course of the last week. Her cough has improved with ipratropium and benzonatate however, the symptoms have worsened and I will start her on Augmentin for this. I do not believe this is meningitis, sinus abscess or pneumonia at the time of evaluation. However, the patient's blood pressure was elevated at the time of triage as well as her pulse and the pulse has normalized after IV fluids were administered. I do not believe she is septic. The patient is currently afebrile. Her urinalysis also did not reveal any evidence of ketones therefore, I do not believe the patient is in DKA. Patient understands treatment plan. There are no additional questions at the time of discharge and she will follow up as requested. Discharge Plan Departure Patient Disposition: Home Clinical Impression: History of diabetes mellitus, Hyperglycemia Sinusitis Qualifiers: Sinusitis location: pansinusitis Chronicity: acute Recurrence: non-recurrent Qualified Code(s): J01.40 - Acute pansinusitis, unspecified Acute bronchitis Qualifiers: Bronchitis organism: unspecified organism Qualified Code(s): J20.9 - Acute bronchitis, unspecified Instructions: DI for Sinusitis, DI for Acute Bronchitis Activity Restrictions/Additional Instructions: Increase clear fluid intake and rest Start the antibiotic tonight as prescribed Follow-up with your PCP in 3-5 days Return here if worse Prescriptions: New amoxicillin-pot clavulanate 875-125 mg tablet 1 tab PO BID Qty: 20 0RF No Action fluconazole 150 mg tablet 150 mg PO DAILY Qty: 1 0RF benzonatate 200 mg capsule 200 mg PO BID PRN (Reason: cough) Qty: 28 0RF [Custom Inserts] Qty: 6 0RF (DME) Diabetic shoes & Inserts&Guantlets Qty: 1 0RF Dose Instruction: As directed Rx Instructions: Dispense diabetic shoes(A5500), 3 pairs A5513, 2 units L1902 (DME) blood-glucose meter [Blood Glucose Monitoring] Kit See Rx Instructions .Route Qty: 1 0RF Rx Instructions: As directed (DME) FreeStyle Test Strip See Dose Instructions .ROUTE .MEDSUPPLY Qty: 300 3RF Dose Instruction: As directed Rx Instructions: Test Blood sugar 3 times a day, or as directed by provider. (DME) pen needle, diabetic [TRUEplus Pen Needle] 31 gauge x 1/4 needle See Rx Instructions .ROUTE .MEDSUPPLY Qty: 100 Patient Comments: [NO ORIGINAL SIG] Rx Instructions: As directed Lantus Solostar U-100 Insulin 100 unit/mL (3 mL) insulin pen 80 unit SUBCUT BID 90 Days Qty: 144 1RF Patient Comments: took 20 units Rx Instructions: Inject 60-80 units BID (DME) pen needle, diabetic [Comfort EZ Pen [place]] 32 gauge x 1/4 needle See Rx Instructions .ROUTE .MEDSUPPLY Qty: 100 3RF Rx Instructions: use to inject insulin alprazolam 0.5 mg tablet 0.5 mg PO ONCE Qty: 2 0RF Rx Instructions: take 30 minutes prior to procedure, may repeat x 1 time insulin lispro protamin-lispro 100 unit/mL (75-25) insulin pen 40 unit SUBCUT QPM ondansetron 4 mg tablet,disintegrating 4 mg PO Q8H PRN (Reason: nausea and vomiting) Qty: 30 1RF rosuvastatin 20 mg tablet 20 mg PO DAILY Qty: 90 1RF Flovent HFA 44 mcg/actuation HFA aerosol inhaler 1 - 2 puff inhalation Q12H Qty: 10.6 3RF albuterol sulfate 90 mcg/actuation HFA aerosol inhaler 2 puff INHALATION Q6H PRN (Reason: shortness of breath or wheezing) Qty: 8.5 5RF rabeprazole [AcipHex] 20 mg tablet,delayed release (DR/EC) 20 mg PO BID Qty: 180 1RF lisinopril 5 mg tablet 5 mg PO DAILY Qty: 90 3RF ipratropium bromide 42 mcg (0.06 %) spray,non-aerosol 2 spray intranasal TID Patient Comments: Supposed to take for 4 days, started on Thursday 06/21 Referrals: Sumanth Verdin ARNP [Primary Care Provider] - Stand Alone Forms: Patient Portal/API
[2024-06-23 19:07] VITALS: BP 215/98; PULSE 113; RESP 17; O2SAT 98
== END 2024-06-23 19:07 | disposition home or self-care (01) ==
PROVIDERS: Emergency Provider Physician Assistant; PCP Registered Nurse Diabetes Educator
DX: J01.40 Acute pansinusitis, unspecified (principal); J20.9 Acute bronchitis, unspecified; E11.65 Type 2 diabetes mellitus with hyperglycemia
CPT/HCPCS: 36415; 71046; 81001; 82962; 96360; 99284

== ENCOUNTER → 2024-07-08 15:20 | Outpatient (CLI) | payer OTHER, MEDICAID, SELFPAY ==
--- NOTE | 2024-08-04 13:16 | DIAB.FU ---
Follow-up Diabetes Education Assessment Name: Michaela Zaman (Nuris) Date: 07/08/24 Time: 330-435p Dx: Type II Diabetes Nuris presents for DM visit. Reports provider increased lisinopril d/t HTN. Endorses heart flutters and plans to see cardiology for stress test. Sees PCP end of month and recently saw santo. Endo moved her back to basal bolus, which this RD agrees with. Though would prefer that she utilize a CGM, but she is adamantly against this at this time. Plans to start Novolog TID 14u. Has not yet picked up mealtime insulin at the time of this visit. Running out of SMBG strips. Anthropometrics: Ht: 5'2 Wt: 211# reported 215# 12/2023 at PCP visit Weight history: 385# in 20s. Has seen RDs and MDs for wt loss my whole life. Physical Activity: Averages 1451-8468 steps per day. Walking for transportation. Self-Monitoring Blood Glucose: Checks blood sugars at wrist due to fear of needle stick on fingers. Is not open to CGM. States she does not want people to know she has diabetes and feels they fall off and does not want to prick herself more. After addressing these concerns, she still does not want a CGM sample. FB, 195, 294, 219, 178, 243, 164 HS: 160, 296, 255, 412, 280, 225 Diabetes Medications: 70/30 NPH 40u before dinner -- d/c Lantus 60-80u Novolog 14u TID-- not yet started Pertinent Labs: HgA1c: 8.2% 09/2023 8.8% 12/2023 20.7% 06/2024 reported Past Medical History: (Last Updated 01/03/24 @ 12:45 by SYLVIA Roy) Abdominal pain Asthma Barretts esophagus Dark emesis De Quervain's disease (tenosynovitis) lt. Dental caries Diabetes Diabetes mellitus type 2, with complication, on superintendent terminal insulin pump Dyslipidemia Elevated TSH Essential hypertension Family history of cardiac disorder Gastroenteritis (~07/2017) GERD with esophagitis Hair thinning History of esophagitis History of gastroesophageal reflux (GERD) History of suicide attempt (1995) Hot flashes due to menopause Hyperlipemia Hypertension Hypertensive urgency Left knee pain Noncompliance Onychomycosis of left great toe Recurrent vertigo Scoliosis Screening for malignant neoplasm of colon SOB (shortness of breath) on exertion (07/26/20) climbing 4 flights of steps Substance abuse former illicit drug use Tachycardia (07/26/20) after climbing four flights of steps Intervention: This participant was very receptive. Provided appropriate educational handouts. Discussed the following topics: Insulin types Rule of 15 review Strategies for getting additional strips for SMBG Nutrition recommendations and portion reduction for CHO Impact of wt loss on BG Created SMART goals for patient self-care and success. 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
== END ==
PROVIDERS: PCP Registered Nurse Diabetes Educator; Referring Provider Registered Nurse Diabetes Educator
DX: E11.65 Type 2 diabetes mellitus with hyperglycemia (principal); Z71.3 Dietary counseling and surveillance; E11.8 Type 2 diabetes mellitus with unspecified complications; Z79.4 Long term (current) use of insulin
CPT/HCPCS: G0108

== ENCOUNTER → 2024-08-17 10:35 | Outpatient (CLI) | payer OTHER, MEDICAID, SELFPAY ==
--- NOTE | 2024-08-17 12:03 | DIAB.MNTFU ---
Follow-up Diabetes Medical Nutrition Therapy Assessment Name: Michaela Zaman (Nuris) Date: 08/17/24 Time: 1110-0439v Dx: Type II Diabetes Nuris presents for DM visit. Lantus: If BG at night are over 300= 80u, if under 300: 20-60u. Worries about low BG. Anticipates healthier eating with daughter. Would like to review nutrition recs though because recently her daughter has been making higher CHO meals. Feels she will be open to changes. Eating more veggies, protein, some fruit. Smoothies for breakfast: fruit, yogurt, spinach States she has been working on reducing BP, ie working on stress Reports endo has sent rx for strips to test 4-5x per day, but the pharmacy has not been able to fill it and she is unclear why. Anthropometrics: Ht: 5'2 Wt: 212# reported 215# 12/2023 at PCP visit Weight history: 385# in 20s. Has seen RDs and MDs for wt loss my whole life. Physical Activity: Averages 3708-7837 steps per day. Aims for 700 steps per day. Walking for transportation. Self-Monitoring Blood Glucose: Checks blood sugars at wrist due to fear of needle stick on fingers. Is not open to CGM. States she does not want people to know she has diabetes and feels they fall off and does not want to prick herself more. After addressing these concerns, she still does not want a CGM sample. FBG quite variable likely due to vast changes in Lantus dose. She bases dose on HS readings vs FBG. Is quite set on this technique. One night with BG under 150mg/dl she did not take any Lantus and woke with BG >300mg/dl. FBG usually 93-250mg/dl, highest 347mg/dl. Would benefit from more set dose of Lantus, but worries about lows. Diabetes Medications: Lantus 60-80u Novolog 14-20u TID-- usually 20 at dinner Pertinent Labs: HgA1c: 8.2% 09/2023 8.8% 12/2023 10.7% 06/2024 reported Past Medical History: (Last Reviewed 08/12/24 @ 16:05 by SYLVIA Roy) Abdominal pain Asthma Barretts esophagus Dark emesis De Quervain's disease (tenosynovitis) lt. 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 Dyslipidemia Elevated TSH Essential hypertension Family history of cardiac disorder Gastroenteritis (~07/2017) GERD with esophagitis Hair thinning History of esophagitis History of gastroesophageal reflux (GERD) History of suicide attempt (1995) Hot flashes due to menopause Hyperlipemia Hypertension Hypertensive urgency Left knee pain Noncompliance Onychomycosis of left great toe Recurrent vertigo Scoliosis Screening for malignant neoplasm of colon SOB (shortness of breath) on exertion (07/26/20) climbing 4 flights of steps Substance abuse former illicit drug use Tachycardia (07/26/20) after climbing four flights of steps Nutrition Rx: Carbohydrates: Meal:30-45g Snack:15-30g Nutrition Diagnosis: - Food and nutrition related knowledge deficit r/t needing refresher on nutrition information aeb pt report and reading food label for net carbs incorrectly- in progress - Predicted excessive CHO intake r/t needing more info about nutrition and support with daughter aeb pt report- new Intervention: This participant was very receptive. Provided appropriate educational handouts. Discussed the following topics: Nutrition recs: carb counting, pairing, plate method, carb recs How to dose Lantus according to FBG Troubleshooting with pharmacy about extra strips Created SMART goals for patient self-care and success. Goals: Ask provider for strips to check 4-5x per day- met technical customer support specialist mealtime insulin- met Share nutrition info with daughter- new Bring BG log and insulin dose journal to next visit- new Discuss with pharmacy barrier to additional strip rx- new Follow-up: MARIO OWENS follow-up in 3-4 weeks Amira Chung RDN, ROMAN Certified Diabetes Care and Fretted Instrument Repairer P: [phone] Thank you for this referral
== END ==
PROVIDERS: PCP Registered Nurse Diabetes Educator; Referring Provider Registered Nurse Diabetes Educator
DX: E11.65 Type 2 diabetes mellitus with hyperglycemia (principal); Z71.3 Dietary counseling and surveillance; Z79.4 Long term (current) use of insulin
CPT/HCPCS: 97803

== ENCOUNTER → 2024-08-25 09:56 | Outpatient (CLI) | payer OTHER, MEDICAID, SELFPAY | LOC: CAR 09:56 | PROVIDERS: PCP Registered Nurse Diabetes Educator; Referring Provider Registered Nurse Diabetes Educator; Visit Provider Registered Nurse Diabetes Educator | DX: R06.02 Shortness of breath (principal); R07.89 Other chest pain; R00.2 Palpitations; R07.9 Chest pain, unspecified; R01.1 Cardiac murmur, unspecified | CPT/HCPCS: 93242 ==

== ENCOUNTER → 2024-09-16 07:33 | Outpatient (CLI) | payer OTHER, SELFPAY ==
--- NOTE | 2024-09-16 07:35 | DI.NM.S_ITS ---
PROCEDURE: NM EXERCISE TREADMILL NON NUC COMPARISON: None. INDICATIONS: systolic murmur FINDINGS: the patient exercised for 6 minutes and 0 seconds reaching 88% of maximum predicted heart rate. Appropriate BP response to exercise. 7.0METs, SHABBIR +1%. No diagnostic ST changes, no ectopy, and no angina during the study. IMPRESSION: Low risk, normal treadmill ECG only stress test from inducible ischemia standpoint. Average exercise tolerance (7.0METs, SHABBIR +1%). Dictated by: Pancho Hearn MD on 09/16/2024 at 16:38 Approved by: Pancho Hearn MD on 09/16/2024 at 16:40
== END ==
PROVIDERS: PCP Registered Nurse Diabetes Educator; Referring Provider Registered Nurse Diabetes Educator; Visit Provider Registered Nurse Diabetes Educator
DX: R07.89 Other chest pain (principal); R06.02 Shortness of breath; R00.2 Palpitations; R01.1 Cardiac murmur, unspecified
CPT/HCPCS: 93017

== ENCOUNTER → 2024-09-24 10:30 | Outpatient (CLI) | payer OTHER, SELFPAY ==
--- NOTE | 2024-10-22 09:24 | DIAB.MNTFU ---
Follow-up Diabetes Medical Nutrition Therapy Assessment Name: Michaela Zaman (Nuris) Date: 09/24/24 Time: 6339-9746 Dx: Type II Diabetes Nuris presents for DM visit. Reports today that she is more open to trying CGM. Has questions regarding device use and application. use to be 164# in 2020 per report. Wants to go back to one insulin injection per day. eating more pasta recenly 2c+ Loves fresh veggies Reduced coffee and coconut creamer cut down on fast food recently, usually gets chicken burger and avoids frites, unsweet tea with 1/4c sweet tea combined. Sometimes cream soda float. Evening readings are quite high and seem r/t excessive CHO. Stage of change is seemingly precontemplative at times. Anthropometrics: Ht: 5'2 Wt: 212# reported last visit 215# 12/2023 at PCP visit Weight history: 385# in 20s. Has seen RDs and MDs for wt loss my whole life. Physical Activity: Averages 9404-6030 steps per day. Aims for 700 steps per day. Walking for transportation. Self-Monitoring Blood Glucose: Checks blood sugars at wrist due to fear of needle stick on fingers. Has not been open to CGm in the past, however today she wants to know more and may agree to sample next visit. Brought insulin and BG log today. Most FBG above goal and all HS readings are >250mg/dl this past week. Changing HS insulin based on evening readings and not FBG. Date Fasting mg/dl HS insuiln dose HS mg/dl 09/18 71 80u 350 09/19 105 60u 276 09/20 150 80u 289 09/21 138 120u 463 09/22 226 80u 272 09/23 84 80u 368 09/24 170 Diabetes Medications: Lantus 80-120u Novolog 14-20u TID-- usually 20 at dinner Pertinent Labs: HgA1c: 8.2% 09/2023 8.8% 12/2023 10.7% 06/2024 reported Past Medical History: (Last Reviewed 08/12/24 @ 16:05 by SYLVIA Roy) Abdominal pain Asthma Barretts esophagus Dark emesis De Quervain's disease (tenosynovitis) lt. Dental caries Diabetes Diabetes mellitus type 2, with complication, on intermediate manager insulin pump Dyslipidemia Elevated TSH Essential hypertension Family history of cardiac disorder Gastroenteritis (~07/2017) GERD with esophagitis Hair thinning History of esophagitis History of gastroesophageal reflux (GERD) History of suicide attempt (1995) Hot flashes due to menopause Hyperlipemia Hypertension Hypertensive urgency Left knee pain Noncompliance Onychomycosis of left great toe Recurrent vertigo Scoliosis Screening for malignant neoplasm of colon SOB (shortness of breath) on exertion (07/26/20) climbing 4 flights of steps Substance abuse former illicit drug use Tachycardia (07/26/20) after climbing four flights of steps Nutrition Rx: Carbohydrates: Meal:30-45g Snack:15-30g Nutrition Diagnosis: - Predicted excessive CHO intake r/t needing more info about nutrition and support with daughter aeb pt report- in progress Intervention: This participant was very receptive. Provided appropriate educational handouts. Discussed the following topics: Nutrition recs: carb recs, sugar beverages How to dose Lantus according to FBG review CGM education on use, action, and placement Created SMART goals for patient self-care and success. Goals: Share nutrition info with daughter- met Bring BG log and insulin dose journal to next visit- met Discuss with pharmacy barrier to additional strip rx- met Avoid sugar beverages- new Dose HS insulin based on FBG- new Follow-up: MARIO OWENS follow-up in 3-[address] CGM sample next visit. Amira Chung RDN, CDCES Certified Diabetes Care and Clinical Leader P: [phone] Thank you for this referral
== END ==
PROVIDERS: PCP Registered Nurse Diabetes Educator; Referring Provider Registered Nurse Diabetes Educator
DX: E11.65 Type 2 diabetes mellitus with hyperglycemia (principal); Z71.3 Dietary counseling and surveillance; Z79.4 Long term (current) use of insulin
CPT/HCPCS: 97803

== ENCOUNTER → 2024-10-13 08:36 | Outpatient (CLI) | payer OTHER, SELFPAY ==
[2024-10-14 09:19] LABS: Hemoglobin A1C% w Est Avg Glu 9.8 % (4.0-6.0)
[2024-10-14 09:23] LABS: Hematocrit 39.5 % (36-46); Hemoglobin 13.2 g/dL (12.0-16.0); Mean Corpuscular HGB Conc 33.4 % (30-36); Mean Corpuscular Volume 92.8 fL (80-100); Platelet Count 311 X10^3/uL (150-400); Red Blood Cell Count 4.25 X10^6/uL (4.0-5.2); White Blood Cell Count 7.9 X10^3/uL (4.5-11.0)
[2024-10-14 09:41] LABS: Alanine Aminotransferase 27 IU/L (<35); Albumin 4.4 g/dL (3.5-5.0); Albumin Globulin Ratio 1.3 (1.0-2.8); Alkaline Phosphatase 83 U/L (38-126); Aspartate Aminotransferase 28 IU/L (14-36); BUN Creatinine Ratio 23.5 (6-22); Bilirubin Total 0.5 mg/dL (0.2-1.3); Blood Urea Nitrogen 20 mg/dL (7-17); Calcium 9.5 mg/dL (8.4-10.2); Carbon Dioxide 28 mmol/L (22-32); Chloride 103 mmol/L (98-107); Cholesterol 252 mg/dL (140-199); Estimated Glomerular Filt Rate > 60 mL/min (>60); Globulin 3.5 g/dL (1.7-4.1); Glucose 100 mg/dL (70-100); HDL Cholesterol 53 mg/dL (40-60); HEMOLYSIS < 15 (0-50); LDL Cholesterol Calculated 159 mg/dL (<100); Potassium 4.6 mmol/L (3.4-5.1); Sodium 138 mmol/L (137-145); Total Protein 7.9 g/dL (6.3-8.2); Triglycerides 201 mg/dL (35-150)
[2024-10-14 10:00] LABS: Creatinine Urine Random 95.85 mg/dL
[2024-10-14 10:10] LABS: TSH w/ Reflex to FT4 7.15 uIU/mL (0.47-4.68)
[2024-10-14 10:43] LABS: Free T4, Direct Thyroxine 0.82 ng/dL (0.78-2.19)
== END ==
PROVIDERS: PCP Registered Nurse Diabetes Educator; Referring Provider Registered Nurse Diabetes Educator; Visit Provider Registered Nurse Diabetes Educator
DX: E11.8 Type 2 diabetes mellitus with unspecified complications (principal); E11.65 Type 2 diabetes mellitus with hyperglycemia; Z79.4 Long term (current) use of insulin; R79.89 Other specified abnormal findings of blood chemistry; E78.5 Hyperlipidemia, unspecified; I10 Essential (primary) hypertension
CPT/HCPCS: 36415; 80053; 80061; 82043; 82570; 83036; 84439; 84443; 85027

== ENCOUNTER → 2024-10-28 12:39 | Outpatient (CLI) | payer OTHER, SELFPAY ==
--- NOTE | 2024-10-28 12:40 | DI.ECHO.S_ITS ---
[place] [facility]+ [facility] : : [id number] : [place] : : [id number] : : Phone: [phone] Echocardiogram Report + + :Name: SHYANN LAZAR Study Date: 10/28/2024 Height: 62 in : :Hospital ReadingLocation: Weight: 226 lb: : Gender: Female BSA: 2.0 m2 : :: 1970 Age: 54 yrs : :Reason For Study: CHEST PAIN, SOB : :Ordering Physician: JAMES, : :SHARAD Performed By: Silvio Cadet : :Referring: SHARAD RAMIREZ : + + Interpretation Summary Mild concentric left ventricular hypertrophy with ejection fraction 65-70%. Diastolic parameters suggest a relaxation abnormality of the left ventricle, consistent with probable normal filling pressures. There is discrete nodular thickening of the non- coronary cusp. Comparison is made with the echocardiogram of 09/05/2020, LV wall thickness has increased. Procedure: A two-dimensional transthoracic echocardiogram with color flow and Doppler was performed. The study quality was technically good. Comparison is made with the echocardiogram of 09/05/2020. The patient was in normal sinus rhythm during the exam. Left Ventricle: The left ventricle is normal in size. There is mild concentric left ventricular hypertrophy. There is no ventricular septal defect visualized. The ejection fraction is estimated to be 65-70%. There are no focal wall motion abnormalities. Diastolic parameters suggest a relaxation abnormality of the left ventricle, consistent with probable normal filling pressures. Right Ventricle: The right ventricle is not well visualized. The right ventricle is grossly normal size. Atria: The left atrial size is normal. Right atrial size is normal. There is no Doppler evidence for an interatrial shunt. Mitral Valve: The mitral valve leaflets appear normal. There is no evidence of stenosis, fluttering, or prolapse. There is trace mitral regurgitation. Aortic Valve: The aortic valve is trileaflet. The aortic valve opens well. There is discrete nodular thickening of the non- coronary cusp. No aortic regurgitation is present. Tricuspid Valve: The tricuspid valve is not well visualized, but is grossly normal. No tricuspid regurgitation. Pulmonic Valve: The pulmonic valve is not well seen, but is grossly normal. There is no pulmonic valvular regurgitation. Great Vessels: The aortic root is normal size. The ascending aorta could not be visualized. The pulmonary artery branches are not well visualized. The IVC is of normal diameter and collapses greater than 50% with a sniff. This suggests a low right atrial pressure of 3 mm Hg. Pericardium/ Pleura There is no pericardial effusion. MMode/2D Measurements & Calculations LVIDd: 4.3 cm LVOT diam: 1.9 cm LVIDs: 2.0 cm Ao root diam: 3.0 cm FS: 54.4 % asc Aorta Diam: 3.2 cm EPSS: 0.76 cm Ao Arch Diam (Prox Trans): 2.4 cm IVSd: 1.2 cm LVPWd: 1.3 cm LV alan. diameter/BSA (cm/m^2): 2.2 LV sys. diameter/BSA (cm/m^2): 0.98 LA A2 area: 16.4 cm2 RA long axis: 4.5 cm LA A4 area: 15.6 cm2 RA area: 10.5 cm2 LA length (vol): 5.1 cm RA vol: 20.7 ml LA vol: 42.4 ml RA : 10.3 ml/m2 LA vol index: 21.1 ml/m2 Doppler Measurements & Calculations Ao V2 max: 209.4 cm/sec LVOT Max Max: 132.8 cm/sec Ao V2 mean: 156.1 cm/sec LV V1 max P.1 mmHg Ao max P.5 mmHg LV V1 VTI: 26.2 cm Ao mean P.7 mmHg ZAN(I,D): 2.2 cm2 Ao V2 VTI: 36.2 cm ZAN(V,D): 1.9 cm2 sev ratio: 0.72 ZAN indexed to BSA (cm^2/m^2): 1.1 MV E max max: 68.9 cm/sec PA V2 max: 101.2 cm/sec MV A max max: 96.0 cm/sec PA V2 mean: 74.1 cm/sec MV E/A: 0.72 PA mean P.4 mmHg Med Peak E' Max: 6.0 cm/sec PA pr(Accel): 32.8 mmHg E/E' med: 11.5 Lat Peak E' Max: 5.8 cm/sec E/E' lat: 11.9 E/e' average: 11.7 MV dec time: 0.10 sec SV(LVOT): 77.9 ml Electronically signed by: Art Noland on Reading Physician:11/01/2024 11:11 AM
== END ==
PROVIDERS: PCP Registered Nurse Diabetes Educator; Referring Provider Registered Nurse Diabetes Educator; Visit Provider Registered Nurse Diabetes Educator
DX: R07.89 Other chest pain (principal); R06.02 Shortness of breath; R01.1 Cardiac murmur, unspecified; R00.2 Palpitations; R07.9 Chest pain, unspecified; Z87.891 Personal history of nicotine dependence; R94.2 Abnormal results of pulmonary function studies; I51.7 Cardiomegaly
CPT/HCPCS: 93306; 94060; 94729

== ENCOUNTER → 2024-11-09 13:39 | Outpatient (CLI) | payer OTHER, SELFPAY ==
--- NOTE | 2024-11-30 07:47 | DIAB.FU ---
Follow-up Diabetes Education Assessment Name: Michaela Zaman (Nuris) Date: 11/09/24 Time: 205-3p Dx: Type II Diabetes Nuris presents for DM visit. States insurance denied Mounjaro. Insurance prefers Victoza. Some concerns for IBS hx and new start GLP1. Continues to be weary of trying CGM. Endorses rotating injection sites for MDI. Eating more veggies per report. Taking 20u+ at dinner. 15u at lunch for sandwich. Keeps insulin in a pack or refrigerator. Needing more info about storage. Anthropometrics: Ht: 5'2 Wt: 226# 09/2024 at PCP visit 215# 12/2023 at PCP visit Weight history: 385# in 20s. Has seen RDs and MDs for wt loss my whole life. Physical Activity: Averages 2612-9901 steps per day. Aims for 700 steps per day. Walking for transportation. Self-Monitoring Blood Glucose: Checks blood sugars at wrist due to fear of needle stick on fingers. Has not been open to CGm in the past, however today she wants to know more and may agree to sample next visit. Brought insulin log and BG log today. Continues to take changing HS insulin doses based on HS numbers, resulting in variable FBG mostly above goal. Today: Date Fasting mg/dl HS insuiln dose HS mg/dl 11/03 108 40 197 11/04 103 40 196 14 152 30 160 /15 225 100 373 11/07 153 0 107 11/08 170 100 338 11/09 179 Last Visit Date Fasting mg/dl HS insuiln dose HS mg/dl 10/16 115 100 371 10/17 73 100 377 10/18 144 60 221 10/19 192 40 162 10/20 160 80 320 10/21 252 100 353 10/22 181 80 250 Diabetes Medications: Lantus 30-100u Novolog 15-20u+ TID Pertinent Labs: HgA1c: 8.2% 09/2023 8.8% 12/2023 10.7% 06/2024 reported 9.8% 09/2024 Past Medical History: (Last Reviewed 10/17/24 @ 09:18 by SYLVIA Roy) Abdominal pain Asthma Barretts esophagus Dark emesis De Quervain's disease (tenosynovitis) lt. Dental caries Diabetes Diabetes mellitus type 2, with complication, on termite technician insulin pump Dyslipidemia Elevated TSH Essential hypertension Family history of cardiac disorder Gastroenteritis (~07/2017) GERD with esophagitis Hair thinning History of esophagitis History of gastroesophageal reflux (GERD) History of suicide attempt (1995) Hot flashes due to menopause Hyperlipemia Hypertension Hypertensive urgency Left knee pain Noncompliance Onychomycosis of left great toe Recurrent vertigo Scoliosis Screening for malignant neoplasm of colon SOB (shortness of breath) on exertion (07/26/20) climbing 4 flights of steps Substance abuse former illicit drug use Tachycardia (07/26/20) after climbing four flights of steps Intervention: This participant was very receptive. Provided appropriate educational handouts. Discussed the following topics: GLP1 side effects, action, and precautions Insulin storage and recommendations CGM benefits vs challenges Created SMART goals for patient self-care and success. Goals: If starting GLP1, reduce evening insulin- continue Try 20-25u at dinner- met Try to stick to same dose HS for Lantus based on FBG- not met Start Victoza- new Can keep insulin at room temperature- new Follow-up: MARIO OWENS follow-up in 3-4 weeks Amira Chung RDN, ROMAN Certified Diabetes Care and Fleet Mechanic P: [phone] Thank you for this referral
== END ==
PROVIDERS: PCP Registered Nurse Diabetes Educator; Referring Provider Registered Nurse Diabetes Educator
DX: E11.65 Type 2 diabetes mellitus with hyperglycemia (principal); Z71.3 Dietary counseling and surveillance; Z79.4 Long term (current) use of insulin; Z87.19 Personal history of other diseases of the digestive system
CPT/HCPCS: G0108

== ENCOUNTER → 2024-11-26 09:40 | Outpatient (CLI) | payer OTHER, SELFPAY ==
--- NOTE | 2024-12-31 13:32 | DIAB.MNTFU ---
Follow-up Diabetes Medical Nutrition Therapy Assessment Name: Michaela Zaman (Nuris) Date: 11/26/24 Time: 10-1050a Dx: Type II Diabetes Nuris presents for DM visit. States she is still waiting on Victoza authorization. some barriers with getting husbands information to process the approval. Staying in [place] again with daughter, granddaughter, and . Limited food access there. Refrigerator is moldy per report. Keeps PB bedside. Considering CGM. Low symptoms: cold sweats. Keeps hard candy in case of low on her. Diet recall: 10a: HN Cheerios with milk, infrequent coffee with coconut creamer 12-3p: guacamole chips OR cheerios OR apple and pb 5-7p: oatmeal x 3 pkts OR rice or pasta or potatoes with meat and veg if cooks HS: chips +/- candy water Anthropometrics: Ht: 5'2 Wt: 226# 09/2024 at PCP visit 215# 12/2023 at PCP visit Weight history: 385# in 20s. Has seen RDs and MDs for wt loss my whole life. Physical Activity: Averages 7923-1651 steps per day. Aims for 700 steps per day. Walking for transportation. Self-Monitoring Blood Glucose: Checks blood sugars at wrist due to fear of needle stick on fingers. Has not been open to CGm in the past, however today she wants to know more and may agree to sample next visit. Brought insulin log and BG log today. Continues to take changing HS insulin doses based on HS numbers, resulting in variable FB. Improved FBG recently, though elevated HS readings are consistent and significantly elevated with most >250mg/dl this past week. Today: Date Fasting mg/dl HS insuiln dose HS mg/dl 11/20 206 0 97 3/2 164 120 464 3/3 120 100 467 3/4 127 70 291 3/5 69 60 256 3/6 78 40 221 3/7 107 Last Visit Date Fasting mg/dl HS insuiln dose HS mg/dl 11/03 108 40 197 2/13 103 40 196 2/14 152 30 160 2/15 225 100 373 2/16 153 0 107 2/17 170 100 338 2/18 179 Diabetes Medications: Lantus 30-100u Novolog 15-20u+ TID Pertinent Labs: HgA1c: 8.2% 09/2023 8.8% 12/2023 10.7% 06/2024 reported 9.8% 09/2024 Past Medical History: (Last Reviewed 10/17/24 @ 09:18 by SYLVIA Roy) Abdominal pain Asthma Barretts esophagus Dark emesis De Quervain's disease (tenosynovitis) lt. Dental caries Diabetes Diabetes mellitus type 2, with complication, on longterm insulin pump Dyslipidemia Elevated TSH Essential hypertension Family history of cardiac disorder Gastroenteritis (~07/2017) GERD with esophagitis Hair thinning History of esophagitis History of gastroesophageal reflux (GERD) History of suicide attempt (1995) Hot flashes due to menopause Hyperlipemia Hypertension Hypertensive urgency Left knee pain Noncompliance Onychomycosis of left great toe Recurrent vertigo Scoliosis Screening for malignant neoplasm of colon SOB (shortness of breath) on exertion (07/26/20) climbing 4 flights of steps Substance abuse former illicit drug use Tachycardia (07/26/20) after climbing four flights of steps Nutrition Rx: Carbohydrates: Meal:30-45g Snack:15-30g Nutrition Diagnosis: - Predicted excessive CHO intake r/t limited food access aeb pt report Intervention: This participant was very receptive. Provided appropriate educational handouts. Discussed the following topics: Troubleshooting GLP1 access Protein foods that she has access to and are affordable Insulin storage Carb portions Created SMART goals for patient self-care and success. Goals: Try to stick to same dose HS for Lantus based on FBG- not met Start Victoza- in progress Can keep insulin at room temperature- in progress Increase protein foods- new Follow-up: MARIO OWENS follow-up in 2-3 weeks Amira Chung RDN, ROMAN Certified Diabetes Care and Case Manager P: [phone] Thank you for this referral
== END ==
PROVIDERS: PCP Registered Nurse Diabetes Educator; Referring Provider Registered Nurse Diabetes Educator
DX: E11.65 Type 2 diabetes mellitus with hyperglycemia (principal); Z71.3 Dietary counseling and surveillance; Z79.4 Long term (current) use of insulin
CPT/HCPCS: 97803

== ENCOUNTER → 2024-12-08 12:43 | Outpatient (CLI) | payer OTHER, SELFPAY ==
--- NOTE | 2024-12-31 13:42 | DIAB.MNTFU ---
Follow-up Diabetes Medical Nutrition Therapy Assessment Name: Michaela Zaman (Nuris) Date: 12/08/24 Time: 105-145p Dx: Type II Diabetes Nuris presents for DM visit. Reports taking probiotics x 4 doses, which resulted in diarrhea. Taking a supplement for reducing hunger per report. States now insurance prefers Ozempic over Victoza. Waiting for approval again. Has a new water bottle, 64oz daily Picked up tuna and more PB to increase protein intake. BG higher lately r/t reported sweet tooth. Reports dry skin, and wonders if BG can contribute to this. Anthropometrics: Ht: 5'2 Wt: 226# 09/2024 at PCP visit 215# 12/2023 at PCP visit Weight history: 385# in 20s. Has seen RDs and MDs for wt loss my whole life. Physical Activity: Averages 4647-1002 steps per day. Aims for 700 steps per day. Walking for transportation. Self-Monitoring Blood Glucose: Checks blood sugars at wrist due to fear of needle stick on fingers. Has not been open to CGm in the past, however today she wants to know more and may agree to sample next visit. Brought insulin log and BG log today. Continues to take changing HS insulin doses based on HS numbers, resulting in variable FB. HS readings continue to be elevated and FBG have increased since last visit. Today: Date Fasting mg/dl HS insuiln dose HS mg/dl 12/02 132 60 212 12/03 213 120 434 12/04 131 140 439 16 65 100 324 12/06 132 80 249 12/07 189 100 302 12/08 146 Last Visit Date Fasting mg/dl HS insuiln dose HS mg/dl 11/20 206 0 97 3/2 164 120 464 11/22 120 100 467 11/23 127 70 291 /5 69 60 256 /6 78 40 221 11/26 107 Diabetes Medications: Lantus 30-100u Novolog 15-20u+ TID Pertinent Labs: HgA1c: 8.2% 09/2023 8.8% 12/2023 10.7% 06/2024 reported 9.8% 09/2024 Past Medical History: (Last Reviewed 10/17/24 @ 09:18 by SYLVIA Roy) Abdominal pain Asthma Barretts esophagus Dark emesis De Quervain's disease (tenosynovitis) lt. Dental caries Diabetes Diabetes mellitus type 2, with complication, on care home insulin pump Dyslipidemia Elevated TSH Essential hypertension Family history of cardiac disorder Gastroenteritis (~07/2017) GERD with esophagitis Hair thinning History of esophagitis History of gastroesophageal reflux (GERD) History of suicide attempt (1995) Hot flashes due to menopause Hyperlipemia Hypertension Hypertensive urgency Left knee pain Noncompliance Onychomycosis of left great toe Recurrent vertigo Scoliosis Screening for malignant neoplasm of colon SOB (shortness of breath) on exertion (07/26/20) climbing 4 flights of steps Substance abuse former illicit drug use Tachycardia (07/26/20) after climbing four flights of steps Nutrition Rx: Carbohydrates: Meal:30-45g Snack:15-30g Nutrition Diagnosis: - Predicted excessive CHO intake r/t limited food access aeb pt report Intervention: This participant was very receptive. Provided appropriate educational handouts. Discussed the following topics: Troubleshooting GLP1 access Impact of sweets on her BG Food relationship Supplement limited info on efficacy and safety Hydration Cravings and strategies to reduce Impact of hyperglycemia on the body Created SMART goals for patient self-care and success. Goals: Try to stick to same dose HS for Lantus based on FBG- not met Start Victoza- in progress Can keep insulin at room temperature- in progress Increase protein foods- met Limit sweets- new Call pharmacy tomorrow- new crop picker Semaglutide- new Continue protein intake- new Follow-up: MARIO OWENS follow-up in 2-3 weeks Amira Chung RDN, ROMAN Certified Diabetes Care and Restaurant Hourly Team Member P: [phone] Thank you for this referral
== END ==
PROVIDERS: PCP Registered Nurse Diabetes Educator; Referring Provider Registered Nurse Diabetes Educator
DX: E11.65 Type 2 diabetes mellitus with hyperglycemia (principal); Z79.4 Long term (current) use of insulin; Z71.3 Dietary counseling and surveillance
CPT/HCPCS: 97803

== ENCOUNTER → 2024-12-16 12:09 | Outpatient (CLI) | payer OTHER, SELFPAY ==
--- NOTE | 2024-12-16 12:10 | DI.CT.S_ITS ---
PROCEDURE: CT LUNG LOW DOSE SCREENING INDICATIONS: Hx of tobacco use. TECHNIQUE: Noncontrast 2.0-2.5 mm thick sections acquired from the pulmonary apices to the posterior costophrenic angles. 7 mm thick axial MIP, and 5 mm coronal and sagittal reformats were then acquired. For radiation dose reduction, the following was used: automated exposure control, adjustment of mA and/or kV according to patient size. COMPARISON: [facility], CT, CHEST/ABD/PEL WITH CONTRAST, 11/01/2017, 16:08. FINDINGS: Image quality: Diagnostic. Lower Neck: No enlarged lymph nodes. Thyroid: No thyroid nodules which require sonographic follow up, per consensus guidelines. Axillae: No enlarged lymph nodes. Chest Wall: Unremarkable. Bones: Presumed prior resection of the left 8th rib. Lungs and Pleura: No pneumothorax or pleural effusions. No consolidation or suspicious nodules. Heart: Heart size is normal. No pericardial effusion. Thoracic Vessels: The aorta and pulmonary arteries demonstrate normal size. Mediastinum and Raina: No enlarged lymph nodes. Esophagus: No wall thickening. No hiatal hernia. Upper Abdomen: Visualized upper abdomen solid organs and bowel loops appear normal. IMPRESSION: No suspicious pulmonary nodules. LUNG-RADS 1; continued annual screening, if eligible. Clinically Significant Non-pulmonary Findings: None. Approved by: Erick Kelly M.D. on 12/16/2024 at 14:09
== END ==
PROVIDERS: PCP Registered Nurse Diabetes Educator; Referring Provider Student in an Organized Health Care Education/Training Program; Visit Provider Student in an Organized Health Care Education/Training Program
DX: Z87.891 Personal history of nicotine dependence (principal); Z12.2 Encounter for screening for malignant neoplasm of respiratory organs
CPT/HCPCS: 71271

== ENCOUNTER → 2024-12-24 09:46 | Outpatient (CLI) | payer OTHER, SELFPAY ==
--- NOTE | 2025-01-25 11:10 | DIAB.FU ---
Follow-up Diabetes Education Assessment Name: Michaela Zaman (Nuris) Date: 12/24/24 Time: 10-11a Dx: Type II Diabetes Nuris presents for DM visit. Has questions regarding why in her 20-30s she had low BG and now has hyperglycemia. Reports toe fungus and broken toe nail. Has [facility] appt 01/06. PCP 01/18. Endorses sweetened wheat cereal to increase fiber and reduce sugar intake per reprot, ie reduced cinnamon rolls. Reports constipation lately and rectal bleeding that has subsided today, she attributes to IBS. Endorses trying to keep PB around for affordable protein foods. Continues to have issues with GLP1 access. Anthropometrics: Ht: 5'2 Wt: 226# 09/2024 at PCP visit 215# 12/2023 at PCP visit Weight history: 385# in 20s. Has seen RDs and MDs for wt loss my whole life. Physical Activity: Averages 8691-0754 steps per day. Aims for 700 steps per day. Walking for transportation. Self-Monitoring Blood Glucose: Checks blood sugars at wrist due to fear of needle stick on fingers. Has not been open to CGm in the past, however today she wants to know more and may agree to sample next visit. Brought insulin log and BG log today. Continues to take changing HS insulin doses based on HS numbers, resulting in variable FB. Improved FBG but continued elevated HS. HS readings have improved some r/t increased insulin and reported reduced sweets. Today: Date Fasting mg/dl HS insuiln dose HS mg/dl 12/18 78 120 499 12/19 204 120 321 12/20 82 120 319 12/21 209 120 323 /2 102 60 171 12/23 148 80 208 / 127 Last Visit: Date Fasting mg/dl HS insuiln dose HS mg/dl 12/02 132 60 212 14 213 120 434 15 131 140 439 16 65 100 324 17 132 80 249 12/07 189 100 302 12/08 146 Diabetes Medications: Lantus 30-100u Novolog 15-20u+ TID Pertinent Labs: HgA1c: 8.2% 09/2023 8.8% 12/2023 10.7% 06/2024 reported 9.8% 09/2024 Past Medical History: (Last Reviewed 10/17/24 @ 09:18 by SYLVIA Roy) Abdominal pain Asthma Barretts esophagus Dark emesis De Quervain's disease (tenosynovitis) lt. Dental caries Diabetes Diabetes mellitus type 2, with complication, on long-term insulin pump Dyslipidemia Elevated TSH Essential hypertension Family history of cardiac disorder Gastroenteritis (~07/2017) GERD with esophagitis Hair thinning History of esophagitis History of gastroesophageal reflux (GERD) History of suicide attempt (1995) Hot flashes due to menopause Hyperlipemia Hypertension Hypertensive urgency Left knee pain Noncompliance Onychomycosis of left great toe Recurrent vertigo Scoliosis Screening for malignant neoplasm of colon SOB (shortness of breath) on exertion (07/26/20) climbing 4 flights of steps Substance abuse former illicit drug use Tachycardia (07/26/20) after climbing four flights of steps Intervention: This participant was very receptive. Provided appropriate educational handouts. Discussed the following topics: Pancreas function: hypo vs hyperglycemia Diabetes complications and risk reduction Foot health Sweetened cereal impact on BG Protein foods that are affordable Created SMART goals for patient self-care and success. Goals: Limit sweets- improved/in progress Call pharmacy tomorrow- met diamond picker Semaglutide- d/c Continue protein intake- met/in progress Mention GLP1 issues with endo- new Discuss toe fungus to provider- new property maintenance supervisor tuna for more protein- new Follow-up: MARIO OWENS follow-up in 3 weeks Amira Chung RDN, ROMAN Certified Diabetes Care and Relationship Specialist P: [phone] Thank you for this referral
== END ==
PROVIDERS: PCP Registered Nurse Diabetes Educator
DX: E11.65 Type 2 diabetes mellitus with hyperglycemia (principal); Z71.3 Dietary counseling and surveillance; Z79.4 Long term (current) use of insulin
CPT/HCPCS: G0108

== ENCOUNTER → 2025-01-18 12:43 | Outpatient (CLI) | payer OTHER, SELFPAY ==
--- NOTE | 2025-01-25 11:47 | DIAB.MNTFU ---
Follow-up Diabetes Medical Nutrition Therapy Assessment Name: Michaela Zaman (Nuris) Date: 01/18/25 Time: 1-2p Dx: Type II Diabetes Nuris presents for DM visit. Has questions regarding GLP1 vs bariatric sx. States she once had a surgeon tell her they could cure her diabetes. At the time of this visit, she had seen santo and Dr. Madison reportedly rx'd Semaglutide. Insurance denied and prefers Victoza, which it has denied in the past. She reports feeling very frustrated understandably. Sees PCP today 01/18, and plans to discuss toe fungus. Endorses avoiding sweets, except one cookie or less per day. Increased protein lately with chicken bake 3x this week. Staying with a friend Fri-Fri, which often results in better quality meals and better food security per report. States Dr. Madison has changed bolus insulin to Lispro. Has endo f/u in July but on cancellation list for March or sooner. Anthropometrics: Ht: 5'2 Wt: 226# 09/2024 at PCP visit 215# 12/2023 at PCP visit Weight history: 385# in 20s. Has seen RDs and MDs for wt loss my whole life. Physical Activity: Averages 4787-7875 steps per day. Aims for 700 steps per day. Walking for transportation. Self-Monitoring Blood Glucose: Checks blood sugars at wrist due to fear of needle stick on fingers. Has not been open to CGm in the past, however today she wants to know more and may agree to sample next visit. Brought insulin log and BG log today. Continues to take changing HS insulin doses based on HS numbers, resulting in variable FBG. Increased frequency of hyperglycemia recently. Today: Date Fasting mg/dl HS insuiln dose HS mg/dl 01/12 79 40 184 01/13 162 80 272 01/14 193 120 379 01/15 190 120 336 01/16 244 140 323 01/17 188 40 194 01/18 72 Last Visit: Date Fasting mg/dl HS insuiln dose HS mg/dl 12/18 78 120 499 12/19 204 120 321 12/20 82 120 319 12/21 209 120 323 12/22 102 60 171 12/23 148 80 208 12/24 127 Diabetes Medications: Lantus 30-100u Novolog 15-20u+ TID Pertinent Labs: HgA1c: 8.2% 09/2023 8.8% 12/2023 10.7% 06/2024 reported 9.8% 09/2024 Past Medical History: (Last Reviewed 10/17/24 @ 09:18 by SYLVIA Roy) Abdominal pain Asthma Barretts esophagus Dark emesis De Quervain's disease (tenosynovitis) lt. Dental caries Diabetes Diabetes mellitus type 2, with complication, on supervisor intermediates insulin pump Dyslipidemia Elevated TSH Essential hypertension Family history of cardiac disorder Gastroenteritis (~07/2017) GERD with esophagitis Hair thinning History of esophagitis History of gastroesophageal reflux (GERD) History of suicide attempt (1995) Hot flashes due to menopause Hyperlipemia Hypertension Hypertensive urgency Left knee pain Noncompliance Onychomycosis of left great toe Recurrent vertigo Scoliosis Screening for malignant neoplasm of colon SOB (shortness of breath) on exertion (07/26/20) climbing 4 flights of steps Substance abuse former illicit drug use Tachycardia (07/26/20) after climbing four flights of steps Nutrition Rx: Carbohydrates: Meal:30-45g Snack:15-30g Nutrition Diagnosis: - Predicted excessive CHO intake r/t limited food access and reported sweet cravings aeb pt report- in progress Intervention: This participant was very receptive. Provided appropriate educational handouts. Discussed the following topics: GLP1 vs bariatric surgery Sweet cravings and strategies DM medication access Food quality at her friend's house and pairing macros Created SMART goals for patient self-care and success. Goals: Limit sweets- improved/in progress Continue protein intake- met/in progress Mention GLP1 issues with endo- met Discuss toe fungus to provider- in progress press set up person tuna for more protein- met Follow-up: MARIO OWENS follow-up in 3-4 weeks Amira Chung RDN, ROMAN Certified Diabetes Care and Senior Account Representative P: [phone] Thank you for this referral
== END ==
LOC: DIET 12:44
PROVIDERS: PCP Registered Nurse Diabetes Educator; Referring Provider Registered Nurse Diabetes Educator
DX: E11.65 Type 2 diabetes mellitus with hyperglycemia (principal); Z79.4 Long term (current) use of insulin; Z71.3 Dietary counseling and surveillance
CPT/HCPCS: 97803

== ENCOUNTER → 2025-01-19 08:54 | Outpatient (CLI) | payer OTHER, SELFPAY ==
[2025-01-19 10:47] LABS: Microalbumin Urine Random 30.7 mg/dL (0-1.6)
== END ==
PROVIDERS: PCP Registered Nurse Diabetes Educator; Referring Provider Registered Nurse Diabetes Educator; Visit Provider Registered Nurse Diabetes Educator
DX: R80.9 Proteinuria, unspecified (principal); E03.8 Other specified hypothyroidism; I10 Essential (primary) hypertension; E78.5 Hyperlipidemia, unspecified; E11.8 Type 2 diabetes mellitus with unspecified complications; E11.65 Type 2 diabetes mellitus with hyperglycemia; Z79.4 Long term (current) use of insulin
CPT/HCPCS: 82043; 82570

== ENCOUNTER → 2025-01-21 07:01 | Outpatient (CLI) | payer OTHER, SELFPAY ==
[2025-01-21 08:33] LABS: HEMOLYSIS < 15 (0-50); Hemoglobin A1C% w Est Avg Glu 8.7 % (4.0-6.0); Iron 76 ug/dL (37-170)
[2025-01-21 08:34] LABS: Cholesterol 240 mg/dL (140-199); HDL Cholesterol 59 mg/dL (40-60); LDL Cholesterol Calculated 143 mg/dL (<100); Triglycerides 189 mg/dL (35-150)
[2025-01-21 08:46] LABS: Percent Iron Saturation 22 % (15-50); Total Iron Binding Capacity 347 ug/dL (265-497); Transferrin 313 mg/dL (206-381)
[2025-01-21 09:05] LABS: TSH w/ Reflex to FT4 6.95 uIU/mL (0.47-4.68)
[2025-01-21 09:10] LABS: Ferritin 38 ng/mL (11-264)
== END ==
PROVIDERS: PCP Registered Nurse Diabetes Educator; Referring Provider Registered Nurse Diabetes Educator; Visit Provider Registered Nurse Diabetes Educator
DX: L65.0 Telogen effluvium (principal); R80.9 Proteinuria, unspecified; E03.8 Other specified hypothyroidism; I10 Essential (primary) hypertension; E11.8 Type 2 diabetes mellitus with unspecified complications; E78.5 Hyperlipidemia, unspecified; E11.65 Type 2 diabetes mellitus with hyperglycemia; Z79.4 Long term (current) use of insulin
CPT/HCPCS: 36415; 80061; 82728; 83036; 83540; 83550; 84439; 84443

== ENCOUNTER 2025-01-26 09:34 | Emergency (ER) | payer OTHER, SELFPAY ==
[2025-01-26] VITALS (22 sets, daily range): BP systolic 164–213; BP diastolic 77–99; PULSE 80–105; RESP 11–22; TEMP 36.6; O2SAT 93–99; BMI 42.6
--- NOTE | 2025-01-26 10:01 | ED.GENADULT ---
HPI - General Adult General Chief complaint: Abdominal Pain Stated complaint: Severe stomach pain. Blood in stool Time Seen by Provider: 01/26/25 10:01 Source: patient Mode of arrival: Ambulatory History of Present Illness HPI narrative: Significant PMHx include: T2DM, hypothyroidism, HTN, Willis's esophagus, GERD, HTN, prior substance abuse Chanel presents with severe upper abdominal pain that has been constant for the past five days, starting on Friday. She reports having diarrhea since Friday evening, which was initially yellow like stomach acid, progressing to brown diarrhea on Friday. She experienced episodes of bloody diarrhea after midnight last night and again during the night. This morning, she has had three bouts of diarrhea without blood. Chanel states that she was diagnosed with colitis several years ago when she experienced similar severe pain. She denies fever, chills, or sweats. She has nausea but no vomiting. Chanel reports no chest pain or shortness of breath beyond her usual asthma symptoms. She rates her current pain as 10/10 in severity. Chanel's medical history is significant for Willis's esophagus, asthma, and a ruptured appendix that was not surgically treated. In 2008, she experienced an esophageal tear that resulted in a collapsed left lung, requiring chest tubes and feeding tubes. She also mentions having bile tubes at that time. Chanel has allergies to morphine and Dilaudid, reporting a severe reaction to morphine in 2003 that required Benadryl administration. She currently takes omeprazole for acid reflux. Regarding her social history, Chanel quit smoking cigarettes 8.5 years ago and reports occasional marijuana use when needed. She denies alcohol consumption or use of other recreational drugs. Chanel still has her gallbladder but does not have an appendix due to the previous rupture. She denies any history of pancreatitis, hemorrhoids, or bowel obstructions. She recalls an episode of severe constipation about a year and a half ago that took three days to resolve. Related Data Home Medications Medication Instructions Recorded Confirmed pen needle, diabetic 31 gauge x #100 ea 07/09/23 01/18/2509/25 (TRUEplus Pen Needle) insulin aspart U-100 100 unit/mL See Rx Instructions SUBCUT BID 08/11/24 01/18/25 (3 mL) subcutaneous pen (Novolog FlexPen U-100 Insulin aspart) Previous Rx's Medication Instructions Recorded [Custom Inserts] units ##6 06/11/17 Diabetic shoes & Inserts&Guantlets #1 ea 02/03/18 blood-glucose meter (Blood Glucose #1 ea 07/04/21 Monitoring kit) alprazolam 0.5 mg tablet 0.5 mg PO ONCE #2 tabs 09/27/21 insulin glargine 100 unit/mL (3 80 unit (0.8 mL) SUBCUT BID 90 09/30/23 mL) subcutaneous pen (Lantus days #144 mL Solostar U-100 Insulin) pen needle, diabetic 32 gauge x #100 ea 12/30/2309/25 (Comfort EZ Pen [place]) albuterol sulfate 90 mcg/actuation 2 puff inhalation Q6H PRN 03/30/24 aerosol inhaler shortness of breath or wheezing #8.5 grams ondansetron 4 mg disintegrating 4 mg PO Q8H PRN nausea and 03/30/24 tablet vomiting #30 tabs inhalational spacing device #1 ea 07/01/24 (BreatheRite MDI Spacer) amoxicillin 875 mg-potassium 1 tab PO BID #20 tabs 10/13/24 clavulanate 125 mg tablet rabeprazole 20 mg tablet,delayed 20 mg PO BID #180 tabs 10/17/24 release (AcipHex) blood sugar diagnostic (FreeStyle #300 ea 10/19/24 Test strips) rosuvastatin 40 mg tablet 40 mg PO DAILY #90 tabs 10/19/24 budesonide-formoterol HFA 80 2 puff inhalation BID #10.2 grams 12/14/24 mcg-4.5 mcg/actuation aerosol inhaler (Symbicort) liraglutide 0.6 mg/0.1 mL (18 mg/3 See Rx Instructions SUBCUT 01/13/25 mL) subcutaneous pen injector .COMPLEX #6 mL (Victoza 2-Butch) lisinopril 5 mg tablet 5 mg PO BID #180 tabs 01/18/25 terbinafine HCl 250 mg tablet 250 mg PO DAILY #84 tabs 01/23/25 oxycodone-acetaminophen 5 mg-325 1 tab PO Q6H PRN pain #10 tabs 01/26/25 mg tablet (Percocet) Allergies Allergy/AdvReac Type Severity Reaction Status Date / Time codeine [CODEINE] Allergy Severe HIVES AND Verified 01/18/25 14:46 ITCHING ibuprofen [IBUPROFEN] Allergy Severe SEVERE Verified 01/18/25 14:46 ABDOMINAL PAIN AND OTHER STOMACH ISSUES morphine [MORPHINE] Allergy Severe BURNING, Verified 01/18/25 14:46 REDNESS Sulfa (Sulfonamide Allergy Severe HIVES Verified 01/18/25 14:46 Antibiotics) [SULFA (SULFONAMIDE ANTIBIOTICS)] hydrocodone [HYDROCODONE] Allergy Intermediate ITCHING Verified 01/18/25 14:46 venlafaxine AdvReac Severe Depression Verified 01/18/25 14:46 and suicidal thoughts doxycycline [DOXYCYCLINE] AdvReac Intermediate reaction Verified 01/18/25 14:46 to sunlight-burning ketorolac [From TORADOL] AdvReac Intermediate vomiting Verified 01/18/25 14:46 tramadol AdvReac Intermediate Nausea and Verified 01/18/25 14:46 vomiting nitrofurantoin AdvReac Mild NAUSEA AND Verified 01/18/25 14:46 [NITROFURANTOIN] VOMITING Ipatropium [place] Nasal AdvReac Intermediate sinus pain Uncoded 01/18/25 14:46 [place] and swelling Review of Systems Review of Systems Narrative: All systems reviewed and unremarkable except as noted in the HPI Patient History Medical History History of nicotine dependence Shortness of breath Microalbuminuria Subclinical hypothyroidism Diabetes mellitus type 2, with complication, on intermission coordinator insulin pump Recurrent vertigo Barretts esophagus Hypertensive urgency History of esophagitis History of gastroesophageal reflux (GERD) Dark emesis Abdominal pain Dyslipidemia Onychomycosis of left great toe History of suicide attempt (1995) Essential hypertension Noncompliance GERD with esophagitis Family history of cardiac disorder Tachycardia (07/26/20) SOB (shortness of breath) on exertion (07/26/20) Dental caries Elevated TSH Screening for malignant neoplasm of colon Hair thinning Hot flashes due to menopause Left knee pain Gastroenteritis (~07/2017) Hypertension Scoliosis Substance abuse De Quervain's disease (tenosynovitis) Asthma Hyperlipemia Diabetes Surgical History S/P bilateral salpingo-oophorectomy (01/18/19) Hx of tooth extraction Hx of surgical procedure Hx of surgical procedure History of tonsillectomy Status post delivery Status post hysterectomy Family History Father Heart disease Diabetes mellitus Mother Cancer Brother Diabetes mellitus Social History household members: friend(s) Tobacco: How many years used: 20 second hand exposure: Yes alcohol intake: current substance use type: marijuana alcohol intake frequency: holidays/special occasions only Exam Narrative Exam Narrative: VS as noted above Focused physical exam as follows: General: Well developed, well nourished, no acute distress, obese HEENT: pink palpebral conjunctiva, anicteric sclera, KADIE, dry mucous membranes, no JVD, no cervical lymphadenopathy Lungs: no respiratory distress, clear to auscultation without wheezes or crackles; equal breath sounds Heart: normal rate, regular rhythm, no appreciable murmurs Abdomen: soft, tender across upper abdomen, no rebound or rigidity Musculoskeletal: no gross deformities with full ROM in all extremities, no pedal edema Skin: pink, warm; no rashes Neuro: ?AAOx3, GCS 15, nonfocal exam Psyche: no SI/HI, normal affect Initial Vital Signs Initial Vital Signs: Vital Signs Temperature 97.8 F 01/26/25 09:37 Pulse Rate 103 H 01/26/25 09:37 Respiratory Rate 19 01/26/25 09:37 Blood Pressure 184/99 H 01/26/25 09:37 Pulse Oximetry 95 01/26/25 09:37 Oxygen Delivery Method Room Air 01/26/25 09:37 Course Course Course Narrative: Initial VS noted above. ? PMHx, PSHx, Medication list, social history reviewed as noted above. Differential diagnosis considered include (but not limited to) the following: hiatal hernia, gastritis, gastric ulcer, GERD, pancreatitis, cholelithiasis/cystitis, colitis, IBS, bowel obstruction, liver or kidney failure, electrolyte imbalance, UTI, pyelo, ureteral calculus, AAA/dissection, ACS, cardiac dysrhythmia, adverse effect of illicit drug/ETOH, hemorrhoids, diverticulitis Pt interviewed and examined. IVF bolus, Zofran ordered while awaiting studies. Bedside EKG showed no ST elevation or ectopy. Dilaudid ordered for pain - mild improvement. Labs reviewed - unremarkable other than mild leukocytosis. CT abd/pelvis ordered - unremarkable as well for any acute process. No evidence of UTI on urinalysis. Additional Dilaudid ordered for pain. Discussed results that far and plan of care. She is unable to provide a stool sample. Stable for discharge. Orders Ordered: Discontinued Medications Hydromorphone HCl (Hydromorphone 0.5 Mg Inj) 0.5 mg IV NOW ONE Stop: 01/26/25 10:41 Last Admin: 01/26/25 10:55 Dose: 0.5 mg Documented By: RAMIRO Hydromorphone HCl (Hydromorphone 1 Mg Inj) 1 mg IV NOW ONE Stop: 01/26/25 12:41 Last Admin: 01/26/25 12:47 Dose: 1 mg Documented By: ENEDINA Sodium Chloride (Normal Saline 0.9%) 1,000 mls @ 1,000 mls/hr IV BOLUS ONE Stop: 01/26/25 11:37 Last Infusion: 01/26/25 11:59 Dose: Infused Documented By: Admin: 01/26/25 10:57 Dose: 1,000 mls/hr Documented By: RAMIRO Ondansetron HCl (Ondansetron 4 Mg/2 Ml Inj) 4 mg IV NOW PRN PRN Reason: Nausea And Vomiting Last Admin: 01/26/25 13:17 Dose: 4 mg Documented By: EENDINA Ondansetron HCl (Ondansetron 4 Mg Odt) 4 mg PO NOW PRN PRN Reason: Nausea And Vomiting Vital Signs Vital signs: Vital Signs - 8 hr 01/26/25 09:37 01/26/25 09:38 01/26/25 09:39 Temperature 97.8 F Pulse Rate 103 H Respiratory Rate 19 Blood Pressure 184/99 H 184/99 H Pulse Oximetry 95 98 Oxygen Delivery Method Room Air 01/26/25 09:39 01/26/25 10:00 Temperature Pulse Rate 105 H 99 H Respiratory Rate Blood Pressure Pulse Oximetry 96 96 Oxygen Delivery Method Medical Decision Making Lab Data 01/26/25 10:08 01/26/25 10:08 Labs: Lab Results 01/26/25 01/26/25 01/26/25 Range/Units 10:06 10:08 11:54 WBC 13.3 H (4.5-11.0) X10^3/uL RBC 4.81 (4.0-5.2) X10^6/uL Hgb 14.4 (12.0-16.0) g/dL Hct 44.1 (36-46) % MCV 91.8 (80-100) fL MCH 30.0 (26-34) PG MCHC 32.7 (30-36) % RDW 13.0 (11.6-14.8) % Plt Count 278 (150-400) X10^3/uL Neut % (Auto) Not Reportable Lymph % (Auto) Not Reportable [place] % (Auto) Not Reportable Eos % (Auto) Not Reportable Baso % (Auto) Not Reportable Lymph # (Auto) Not Reportable [place] # (Auto) Not Reportable Baso # (Auto) Not Reportable Total Counted 100 Seg Neutrophils % 65.0 (38-70) % Lymphocytes % (Manual) 24.0 L (25-45) % Monocytes % (Manual) 3.0 (2-11) % Eosinophils % (Manual) 7.0 H (2-4) % Basophils % (Manual) 1.0 (0-1) % Neutrophils # (Manual) 8645 H (6780-4707) /uL RBC Morphology Normal morphology PT 11.8 (9.4-12.5) SECONDS INR 1.0 (0.9-1.3) APTT 27 (25.1-36.5) SECONDS Sodium 138 (137-145) mmol/L Potassium 4.8 (3.4-5.1) mmol/L Chloride 107 (98-107) mmol/L Carbon Dioxide 18 L (22-32) mmol/L BUN 17 (7-17) mg/dL Creatinine 0.94 (0.52-1.04) mg/dL Estimated GFR > 60 (>60) mL/min BUN/Creatinine Ratio 18.1 (6-22) Glucose 155 H (70-99) mg/dL Calcium 9.5 (8.4-10.2) mg/dL Total Bilirubin 1.1 (0.2-1.3) mg/dL AST 39 H (14-36) IU/L ALT 22 (<35) IU/L Alkaline Phosphatase 95 (38-126) U/L Total Creatine Kinase 78 (30-135) U/L Troponin I < 0.012 (0.01-0.034) ng/mL Total Protein 9.3 H (6.3-8.2) g/dL Albumin 4.8 (3.5-5.0) g/dL Globulin 4.5 H (1.7-4.1) g/dL Albumin/Globulin Ratio 1.1 (1.0-2.8) Lipase 181 (23-300) U/L Urine RBC 1-5/hpf (0-5/HPF) Urine WBC 0-1/hpf (0-5/HPF) Ur Squamous Epith Cells 1-5 /hpf (0-5/HPF) Urine Bacteria None seen (None) Ur Culture Indicated? Cult not indicated Vol Urine Centrifuged 10ml (spun) Blood Type A Positive Antibody Screen Negative Point of Care Testing Glucose POC 152 Urine Dip Bedside Urine Glucose Negative Bedside Urine Bilirubin - Negative Bedside Urine Ketone - Negative Urine Specific [place] 1.030 Bedside Urine Occult Blood +/- Bedside Urine pH 6.0 Bedside Urine Protein + 30 Bedside Urine Urobilinogen - Negative Bedside Urine Nitrite - Negative Bedside Urine Leukocytes - Negative Esterase Point of care testing: Point of Care Testing Glucose POC 152 Urine Dip Bedside Urine Glucose Negative Bedside Urine Bilirubin - Negative Bedside Urine Ketone - Negative Urine Specific [place] 1.030 Bedside Urine Occult Blood +/- Bedside Urine pH 6.0 Bedside Urine Protein + 30 Bedside Urine Urobilinogen - Negative Bedside Urine Nitrite - Negative Bedside Urine Leukocytes - Negative Esterase Imaging Data CT scan - abdomen/pelvis: Radiologist's Impression: IMPRESSION: 1. Mild diverticulosis without evidence of acute diverticulitis. 2. Mild bladder wall thickening. Recommend correlation with urine studies to exclude bacterial cystitis. 3. Remote hysterectomy. ECG Data Attestation: I personally reviewed and interpreted this ECG as follows: (1100 - NSR @ 90; no STTW changes; QTc 418) MDM Narrative Medical decision making narrative: MDM HPI, PMHx, PSHx, Medication list, Allergies, ROS and Focused exam were reviewed above.? Differential diagnosis as noted above.? Social determinants affecting care considered (as listed).? All of these were taken into consideration warranting above listed work up.? Consultations as deemed necessary were documented above (if listed). Labs (if ordered and noted above) were independently reviewed by me. Imaging studies (if ordered and noted above) were independently reviewed by me EKG (if noted above) was independently reviewed by me External documents (if reviewed) are documented above Discharge Plan Departure Patient Disposition: Home Clinical Impression: Epigastric abdominal pain Instructions: DI for Abdominal Pain-Adult Activity Restrictions/Additional Instructions: Evaluation today was generally reassuring. Use Tylenol for mild pain and Percocet for severe pain. Use nausea meds you have at home. Continue with meds for your reflux. Follow up with your regular doctor as needed. Return to the ER if with worsening symptoms. Prescriptions: New oxycodone-acetaminophen [Percocet] 5-325 mg tablet 1 tab PO Q6H PRN (Reason: pain) Qty: 10 0RF No Action [Custom Inserts] Qty: 6 0RF (DME) Diabetic shoes & Inserts&Guantlets Qty: 1 0RF Dose Instruction: As directed Rx Instructions: Dispense diabetic shoes(A5500), 3 pairs A5513, 2 units L1902 liraglutide [Victoza 2-Butch] 0.6 mg/0.1 mL (18 mg/3 mL) pen injector See Rx Instructions SUBCUT .COMPLEX Qty: 6 3RF Rx Instructions: inject 0.6mg subcutaneously once daily x 7 days; then 1.2mg daily x 7 days, then if fasting sugar still >130 increase to 1.8mg daily (DME) blood-glucose meter [Blood Glucose Monitoring] Kit See Rx Instructions .Route Qty: 1 0RF Rx Instructions: As directed (DME) pen needle, diabetic [TRUEplus Pen Needle] 31 gauge x 1/4 needle See Rx Instructions .ROUTE .MEDSUPPLY Qty: 100 Patient Comments: [NO ORIGINAL SIG] Rx Instructions: As directed Lantus Solostar U-100 Insulin 100 unit/mL (3 mL) insulin pen 80 unit SUBCUT BID 90 Days Qty: 144 1RF Patient Comments: took 20 units Rx Instructions: Inject 60-80 units BID (DME) pen needle, diabetic [Comfort EZ Pen [place]] 32 gauge x 1/4 needle See Rx Instructions .ROUTE .MEDSUPPLY Qty: 100 3RF Rx Instructions: use to inject insulin insulin aspart U-100 [Novolog FlexPen U-100 Insulin] 100 unit/mL (3 mL) insulin pen See Rx Instructions SUBCUT BID Rx Instructions: 14-20 units subcutaneously twice a day; alprazolam 0.5 mg tablet 0.5 mg PO ONCE Qty: 2 0RF Rx Instructions: take 30 minutes prior to procedure, may repeat x 1 time ondansetron 4 mg tablet,disintegrating 4 mg PO Q8H PRN (Reason: nausea and vomiting) Qty: 30 1RF albuterol sulfate 90 mcg/actuation HFA aerosol inhaler 2 puff INHALATION Q6H PRN (Reason: shortness of breath or wheezing) Qty: 8.5 5RF (DME) BreatheRite MDI Spacer Spacer See Rx Instructions .Route Qty: 1 3RF Rx Instructions: As directed amoxicillin-pot clavulanate 875-125 mg tablet 1 tab PO BID Qty: 20 0RF rabeprazole [AcipHex] 20 mg tablet,delayed release (DR/EC) 20 mg PO BID Qty: 180 0RF (DME) FreeStyle Test Strip See Dose Instructions .ROUTE .MEDSUPPLY Qty: 300 3RF Dose Instruction: As directed Rx Instructions: Test Blood sugar 3 times a day, or as directed by provider. rosuvastatin 40 mg tablet 40 mg PO DAILY Qty: 90 3RF lisinopril 5 mg tablet 5 mg PO BID Qty: 180 0RF Rx Instructions: Take one tablet twice daily for high blood pressure terbinafine HCl 250 mg tablet 250 mg PO DAILY Qty: 84 0RF Rx Instructions: Please remember to repeat liver labs in 6 weeks (labs have been ordered) budesonide-formoterol [Symbicort] 80-4.5 mcg/actuation HFA aerosol inhaler 2 puff inhalation BID Qty: 10.2 4RF Referrals: Sumanth Verdin ARNP [Primary Care Provider] - Stand Alone Forms: Patient Portal/API/Survey
--- NOTE | 2025-01-26 10:15 | EKG_ITS ---
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
[2025-01-26 10:27] LABS: PTT Partial Thromboplastin Tim 27 SECONDS (25.1-36.5); Prothrombin Time 11.8 SECONDS (9.4-12.5)
[2025-01-26 10:28] LABS: Alanine Aminotransferase 22 IU/L (<35); Albumin 4.8 g/dL (3.5-5.0); Albumin Globulin Ratio 1.1 (1.0-2.8); Alkaline Phosphatase 95 U/L (38-126); Aspartate Aminotransferase 39 IU/L (14-36); BUN Creatinine Ratio 18.1 (6-22); Bilirubin Total 1.1 mg/dL (0.2-1.3); Blood Urea Nitrogen 17 mg/dL (7-17); Calcium 9.5 mg/dL (8.4-10.2); Carbon Dioxide 18 mmol/L (22-32); Chloride 107 mmol/L (98-107); Estimated Glomerular Filt Rate > 60 mL/min (>60); Globulin 4.5 g/dL (1.7-4.1); Glucose 155 mg/dL (70-99); Potassium 4.8 mmol/L (3.4-5.1); Sodium 138 mmol/L (137-145); Total Protein 9.3 g/dL (6.3-8.2)
[2025-01-26 10:29] LABS: Creatine Kinase 78 U/L (30-135); HEMOLYSIS 131 (0-50); Lipase 181 U/L (23-300)
[2025-01-26 10:42] LABS: Troponin I < 0.012 ng/mL (0.01-0.034)
[2025-01-26 10:47] LABS: Hematocrit 44.1 % (36-46); Hemoglobin 14.4 g/dL (12.0-16.0); Mean Corpuscular HGB Conc 32.7 % (30-36); Mean Corpuscular Volume 91.8 fL (80-100); Platelet Count 278 X10^3/uL (150-400); Red Blood Cell Count 4.81 X10^6/uL (4.0-5.2); White Blood Cell Count 13.3 X10^3/uL (4.5-11.0)
[2025-01-26 10:50] LABS: Add Manual Diff / Slide Review YES
[2025-01-26 10:53] LABS: Neutrophils Absolute Manual 8645 /uL (3000-5900); RBC Morphology Normal Morphology; Total Cells Counted 100
[2025-01-26] MEDS: HYDROMORPHONE 0.5 MG INJ IV (10:55)
[2025-01-26] MEDS: SODIUM CHLORIDE 0.9% 1,000 ML 1000 ML IV (10:57)
--- NOTE | 2025-01-26 11:33 | DI.CT.S_ITS ---
PROCEDURE: CT ABDOMEN PELVIS W CON INDICATIONS: abdominal pain TECHNIQUE: After the administration of intravenous contrast, axial sections acquired from the lung bases to the pubic symphysis. Coronal and sagittal reformats were performed. For radiation dose reduction, the following was used: automated exposure control, adjustment of mA and/or kV according to patient size. COMPARISON: [facility], CT, CT LUNG LOW DOSE SCREENING, 12/16/2024, 12:14. [facility], CT, CT ABDOMEN PELVIS W CON, 04/11/2022, 12:55. FINDINGS: Image quality: Diagnostic. Lower Chest: No significant findings. ABDOMEN: Liver: No solid mass. Gallbladder: No radiopaque gallstones or wall thickening. Biliary ducts: No biliary dilation. Pancreas: No ductal dilation. Spleen: Size is within normal limits. Adrenal Glands: No adrenal nodules. Kidneys and Ureters: No hydronephrosis. No solid mass. No complex renal cystic lesion which requires follow up. Stomach and Bowel: Normal colonic caliber, without significant wall thickening. Mild diverticulosis. Normal appendix. Peritoneum: No abnormal intraperitoneal fluid. No free air. Ventral Wall: No significant ventral hernia. Abdominal Nodes: No retroperitoneal or mesenteric adenopathy by size criteria. Vessels: Aorta and inferior vena cava are normal in size. PELVIS: Pelvic Organs: Uterus is surgically absent. No adnexal masses.. Bladder: Mild bladder wall thickening, accounting for underdistention. Pelvic Nodes: No enlarged lymph nodes. Miscellaneous: No inguinal hernias are seen. Bones: No aggressive osseous abnormality. IMPRESSION: 1. Mild diverticulosis without evidence of acute diverticulitis. 2. Mild bladder wall thickening. Recommend correlation with urine studies to exclude bacterial cystitis. 3. Remote hysterectomy. Dictated by: Jose Lock M.D. on 01/26/2025 at 13:16 Approved by: Jose Lock M.D. on 01/26/2025 at 13:27
[2025-01-26 12:11] LABS: Urine Volume 10mL (spun)
[2025-01-26 12:13] LABS: Bacteria Urine None Seen; Culture Indicated Urine Cult Not Indicated; RBC Urine 1-5/HPF (0-5/HPF); Squamous Epithelial Cell Urine 1-5 /HPF (0-5/HPF); WBC Urine 0-1/HPF (0-5/HPF)
[2025-01-26] MEDS: HYDROMORPHONE 1 MG INJ IV (12:47)
[2025-01-26] MEDS: ONDANSETRON 4 MG/2 ML INJ IV (13:17)
== END 2025-01-26 14:57 | disposition home or self-care (01) ==
PROVIDERS: Emergency Provider Emergency Medicine; PCP Registered Nurse Diabetes Educator
DX: R10.13 Epigastric pain (principal); R19.7 Diarrhea, unspecified; K92.1 Melena; Z87.19 Personal history of other diseases of the digestive system
CPT/HCPCS: 74177; 80053; 81003; 81015; 82550; 82962; 83690; 84484; 85007; 85025; 85610; 85730; 86850; 86900; 86901; 93005; 93010; 96361; 96374; 96375; 96376; 99284; J1171; J2405

== ENCOUNTER → 2025-02-16 12:47 | Outpatient (CLI) | payer OTHER, SELFPAY ==
--- NOTE | 2025-02-17 17:08 | DIAB.FU ---
Follow-up Diabetes Education Assessment Name: Michaela Zaman (Nuris) Date: 02/16/25 Time: 1-2p Dx: Type II Diabetes Nuris presents for DM visit. Has questions regarding GLP1 vs bariatric sx. States she once had a surgeon tell her they could cure her diabetes. At the time of this visit, she had seen endo and Dr. Madison reportedly rx'd Semaglutide. Insurance denied and prefers Victoza, which it has denied in the past. She reports feeling very frustrated understandably. Reports trying Victoza and had diarrhea/stomach pains/nausea. Went to ED due to symptoms. Has since d/c'd Victoza. has not yet updated endo office. Reports h/o similar symptoms with Trulicity. States she thinks she may not be able to take GLP1 meds. Reports frequent yeast infections with Jardiance. Worries about long lines operator health concerns with Metformin, despite our previous conversations about safety. Endorses some upper GI discomfort. Endorses some excessive burps and feeling of wanting to vomit with higher fat foods. Plans for more protein and salads during the summer. Endorses continued efforts in avoiding sweets. Did have a BG >400 after a mini sweet potato pie. Likely needs increased bolus insulin in evening with meal. Staying with a friend Tue-Fri, which often results in better quality meals and better food security per report. Has endo f/u in July but on cancellation list for March or sooner. Anthropometrics: Ht: 5'2 Wt: 234# 01/2025 at PCP visit 226# 09/2024 at PCP visit 215# 12/2023 at PCP visit Weight history: 385# in 20s. Has seen RDs and MDs for wt loss my whole life. Physical Activity: Averages 1039-0600 steps per day. Aims for 700 steps per day. Walking for transportation. Self-Monitoring Blood Glucose: Checks blood sugars at wrist due to fear of needle stick on fingers. Not open to CGM at this time. Brought insulin log and BG log today. Continues to take changing HS insulin doses based on HS numbers, resulting in variable FBG. Reduced elevations in FBG, but continued elevated HS numbers. May benefit from increased ac insulin at dinner. Endorses one low BG <60mg/dl and treated with ice cream. Today: Date Fasting mg/dl HS insuiln dose HS mg/dl 02/10 207 80 279 02/11 126 120 419 02/12 238 140 HIGH >400 02/13 117 80 280 02/14 101 100 318 02/15 288 120 376 02/16 100 Last Visit: Date Fasting mg/dl HS insuiln dose HS mg/dl 01/12 79 40 184 01/13 162 80 272 01/14 193 120 379 01/15 190 120 336 01/16 244 140 323 01/17 188 40 194 01/18 72 Diabetes Medications: Lantus 30-100u Novolog 15-20u+ TID Pertinent Labs: HgA1c: 8.2% 09/2023 8.8% 12/2023 10.7% 06/2024 reported 9.8% 09/2024 Past Medical History: (Last Reviewed 10/17/24 @ 09:18 by SYLVIA Roy) Abdominal pain Asthma Barretts esophagus Dark emesis De Quervain's disease (tenosynovitis) lt. Dental caries Diabetes Diabetes mellitus type 2, with complication, on long lines operator insulin pump Dyslipidemia Elevated TSH Essential hypertension Family history of cardiac disorder Gastroenteritis (~07/2017) GERD with esophagitis Hair thinning History of esophagitis History of gastroesophageal reflux (GERD) History of suicide attempt (1995) Hot flashes due to menopause Hyperlipemia Hypertension Hypertensive urgency Left knee pain Noncompliance Onychomycosis of left great toe Recurrent vertigo Scoliosis Screening for malignant neoplasm of colon SOB (shortness of breath) on exertion (07/26/20) climbing 4 flights of steps Substance abuse former illicit drug use Tachycardia (07/26/20) after climbing four flights of steps Intervention: This participant was very receptive. Provided appropriate educational handouts. Discussed the following topics: GLP1 reaction and types Nutrition recs in brief BG trends and goals Possible CGM sample Consideration for insulin pump, benefits, limitations DM complications r/t elevated BG and hgA1c Potential for higher bolus insulin at dinner given HS readings Encouraged tx of lows with juice, gummies, gel, or glucose tabs Created SMART goals for patient self-care and success. Goals: Limit sweets- improved/in progress Discuss toe fungus to provider- met Call endo and update about Victoza reaction- new Follow-up: MARIO OWENS follow-up in 4-5 weeks. PCP in February and endo in Jul (on cancellation list) Amira Chung RDN, [facility] [place] Certified Diabetes Care and Peoplesoft Consultant P: [phone] Thank you for this referral
== END ==
PROVIDERS: PCP Registered Nurse Diabetes Educator; Referring Provider Registered Nurse Diabetes Educator
DX: E11.65 Type 2 diabetes mellitus with hyperglycemia (principal); Z71.3 Dietary counseling and surveillance; Z79.4 Long term (current) use of insulin
CPT/HCPCS: G0108

== ENCOUNTER → 2025-03-15 07:21 | Outpatient (CLI) | payer OTHER, SELFPAY ==
[2025-03-15 08:15] LABS: Hemoglobin A1C% w Est Avg Glu 9.4 % (4.0-6.0)
[2025-03-15 08:31] LABS: Creatinine Urine Random 15.82 mg/dL
[2025-03-15 08:35] LABS: Alanine Aminotransferase 19 IU/L (<35); Albumin 4.3 g/dL (3.5-5.0); Albumin Globulin Ratio 1.3 (1.0-2.8); Alkaline Phosphatase 93 U/L (38-126); Aspartate Aminotransferase 23 IU/L (14-36); Bilirubin Total 0.4 mg/dL (0.2-1.3); Bilirubin Unconjugated 0.1 mg/dL (0.0-1.1); Cholesterol 170 mg/dL (140-199); Globulin 3.4 g/dL (1.7-4.1); HDL Cholesterol 42 mg/dL (40-60); HEMOLYSIS < 15 (0-50); LDL Cholesterol Calculated 57 mg/dL (<100); Total Protein 7.7 g/dL (6.3-8.2); Triglycerides 355 mg/dL (35-150)
[2025-03-15 08:36] LABS: Microalbumin Urine Random 4.2 mg/dL (0-1.6)
== END ==
PROVIDERS: PCP Registered Nurse Diabetes Educator; Referring Provider Registered Nurse Diabetes Educator; Visit Provider Registered Nurse Diabetes Educator
DX: R80.9 Proteinuria, unspecified (principal); E78.5 Hyperlipidemia, unspecified; E11.8 Type 2 diabetes mellitus with unspecified complications; Z79.4 Long term (current) use of insulin; E11.65 Type 2 diabetes mellitus with hyperglycemia; B35.1 Tinea unguium; Z51.81 Encounter for therapeutic drug level monitoring
CPT/HCPCS: 36415; 80061; 80076; 82043; 82570; 83036

== ENCOUNTER → 2025-03-15 13:02 | Outpatient (CLI) | payer OTHER, SELFPAY ==
--- NOTE | 2025-03-15 13:03 | DI.US.S_ITS ---
PROCEDURE: US PERIPH VENOUS LOW EXTREM RT INDICATIONS: eval RLE pain/swelling, R/O DVT TECHNIQUE: Real-time imaging, as well as color and pulse Doppler interrogation, were performed of the lower extremity deep veins from the inguinal ligament to the popliteal fossa, with documentation of the visualized calf veins. COMPARISON: None. FINDINGS: The common femoral, femoral, popliteal, and the visualized calf veins are normally compressible, and free of intraluminal thrombus. Color and pulse Doppler demonstrate normal phasic intraluminal flow. There is normal augmentation response to distal compression maneuver. IMPRESSION: No findings of lower extremity deep venous thrombosis. Dictated by: Kavita Osullivan M.D. on 03/15/2025 at 13:49 Approved by: Kavita Osullivan M.D. on 03/15/2025 at 13:49
== END ==
PROVIDERS: PCP Registered Nurse Diabetes Educator; Referring Provider Registered Nurse Diabetes Educator; Visit Provider Registered Nurse Diabetes Educator
DX: M79.604 Pain in right leg (principal); R80.9 Proteinuria, unspecified; E78.5 Hyperlipidemia, unspecified; E11.8 Type 2 diabetes mellitus with unspecified complications; E11.65 Type 2 diabetes mellitus with hyperglycemia; Z79.4 Long term (current) use of insulin; B35.1 Tinea unguium; Z51.81 Encounter for therapeutic drug level monitoring
CPT/HCPCS: 36415; 80061; 80076; 82043; 82570; 83036; 93971

== ENCOUNTER → 2025-03-23 10:36 | Outpatient (CLI) | payer OTHER, SELFPAY ==
--- NOTE | 2025-03-23 13:30 | DIAB.MNTFU ---
Follow-up Diabetes Medical Nutrition Therapy Assessment Name: Michaela Zaman (Nuris) Date: 03/23/25 Time: 1105-4330a Dx: Type II Diabetes Nuris presents for DM follow-up. Reports increased stress recently with having to care for 6 y/o grandson, present in today's visit. States CPS has been involved and she has to be present for him to stay with his mother. States she does have better food access when staying with this daughter. Though also reports eating comfort or junk food in evenings. Sometimes a healthier snack. Less desirable snacks often includes gummy candies, pastries. Endorses waking with a BG of 68mg/dl and treated with cereal. Another time reports she felt shaky after taking insulin too far ahead of eating while running errands. Then ate fruit, protein, and pancakes to bring it up per report. Endorses the need for heart surgery at some point. hgA1c continues >9% She is not currently open to diabetes technology, including CGM use or insulin pump therapy. Likely needs additional insulin in the evening if CHO intake is up, based on HS readings. States she would like to try reducing CHO in evening. Has endo f/u in July but on cancellation list for March or sooner. Anthropometrics: Ht: 5'2 Wt: 237# 02/2025 at PCP visit 234# 01/2025 at PCP visit 226# 09/2024 at PCP visit 215# 12/2023 at PCP visit Weight history: 385# in 20s. Has seen RDs and MDs for wt loss my whole life. Physical Activity: Averages 6734-5669 steps per day. Aims for 700 steps per day. Walking for transportation. Self-Monitoring Blood Glucose: Checks blood sugars at wrist due to fear of needle stick on fingers. Not open to CGM at this time. Brought insulin log and BG log today. Continues to take changing HS insulin doses based on HS numbers, resulting in variable FBG. continued hyperglycemia FBG and HS. Today: Date Fasting mg/dl HS insuiln dose HS mg/dl 03/17 228 140 411 03/18 226 100 300 03/19 125 40 182 03/20 263 100 279 03/21 152 120 301 03/22 186 100 332 03/23 123 Last Visit: Date Fasting mg/dl HS insuiln dose HS mg/dl 02/10 207 80 279 02/11 126 120 419 02/12 238 140 HIGH >400 02/13 117 80 280 02/14 101 100 318 02/15 288 120 376 02/16 100 Diabetes Medications: Lantus 30-100u Novolog 15-20u+ TID Pertinent Labs: HgA1c: 8.2% 09/2023 8.8% 12/2023 10.7% 06/2024 reported 9.8% 09/2024 9.4% 03/2025 Past Medical History: (Last Reviewed 10/17/24 @ 09:18 by SYLVIA Roy) Abdominal pain Asthma Barretts esophagus Dark emesis De Quervain's disease (tenosynovitis) lt.Dental caries Diabetes Diabetes mellitus type 2, with complication, on group home insulin pump Dyslipidemia Elevated TSH Essential hypertension Family history of cardiac disorder Gastroenteritis (~07/2017) GERD with esophagitis Hair thinning History of esophagitis History of gastroesophageal reflux (GERD) History of suicide attempt (1995) Hot flashes due to menopause Hyperlipemia Hypertension Hypertensive urgency Left knee pain Noncompliance Onychomycosis of left great toe Recurrent vertigo Scoliosis Screening for malignant neoplasm of colon SOB (shortness of breath) on exertion (07/26/20) climbing 4 flights of stepsSubstance abuse former illicit drug useTachycardia (07/26/20) after climbing four flights of steps Nutrition Rx: Carbohydrates: Meal:30-45gSnack:15-30g Nutrition Diagnosis: - Predicted excessive CHO intake r/t limited food access and stage of change barriers aeb pt report Intervention: This participant was very receptive. Provided appropriate educational handouts. Discussed the following topics: BG trends Encouraged tx of lows with juice, gummies, gel, or glucose tabs Reviewed lower CHO snacks: protein and/or high fiber based Meal timing and spreading evening snacking out Potential for insulin with high CHO Hs snacks Choices in DM management given decline of diabetes tech Importance of BG management with heart health and healing Created SMART goals for patient self-care and success. Goals: Call endo and update about Victoza reaction- not discussed Spread out evening eating by 3-4 hours- new Try an HS snack discussed today- new If BG <70, treat with quick acting CHO- new Follow-up: MARIO OWENS follow-up in 6-8 weeks per pt request given current home stituations she is managing. Endo in Nov (on cancellation list). Amira Chung RDN, [facility] Certified Diabetes Care and Yard Worker P: [phone] Thank you for this referral
== END ==
LOC: DIET 10:37
PROVIDERS: PCP Registered Nurse Diabetes Educator; Referring Provider Registered Nurse Diabetes Educator
DX: E11.65 Type 2 diabetes mellitus with hyperglycemia (principal); Z71.3 Dietary counseling and surveillance; Z79.4 Long term (current) use of insulin
CPT/HCPCS: 97803

== ENCOUNTER → 2025-05-25 10:43 | Outpatient (CLI) | payer OTHER, SELFPAY ==
--- NOTE | 2025-06-28 16:27 | DIAB.MNTFU ---
Follow-up Diabetes Medical Nutrition Therapy Assessment Name: Michaela Zaman (Nuris) Date: 05/25/25 Time: 1105-1150a Dx: Type II Diabetes Nuris presents for DM follow-up. Eating BID. Endorses reduced sweet cravings. Trying to choose nutragrain bar over sweets. Reports reduced portions. Limiting second portions at meals. Feeling more bloated and abdominal pain. More nausea lately. Plans for GI scope in May. Endo visit in July. Stress continued with home life and family dynamics. More protein access when in [place] Friday through . Main protein over the weekends is peanut butter. UTD eye exam without concern. Diet Recall: coffee with creamer 2-3p: oatmeal 5-9p: protein and veggies water coffee with coconut creamer Anthropometrics: Ht: 5'2 Wt: 235# reported 05/2025 237# 02/2025 at PCP visit 234# 01/2025 at PCP visit 226# 09/2024 at PCP visit 215# 12/2023 at PCP visit Weight history: 385# in 20s. Has seen RDs and MDs for wt loss my whole life. Physical Activity: Trying to walk more. Previously averaged 7319-1662 steps per day. Aims for 700 steps per day. Walking for transportation. Self-Monitoring Blood Glucose: Checks blood sugars at wrist due to fear of needle stick on fingers. Not open to CGM at this time. Brought insulin log and BG log today. Continues to take changing HS insulin doses based on HS numbers, resulting in variable FBG. Continued frequent hyperglycemia FBG and HS, though improved since last visit. Today: Date Fasting mg/dl HS insuiln dose HS mg/dl 05/19 132 100 300 05/20 110 100 243 05/21 87 120 387 05/22 77 120 387 05/23 209 120 344 9 187 40 144 05/25 156 Last Visit: Date Fasting mg/dl HS insuiln dose HS mg/dl 03/17 228 140 411 03/18 226 100 300 03/19 125 40 182 03/20 263 100 279 03/21 152 120 301 03/22 186 100 332 7/ 123 Diabetes Medications: Lantus 30-140u Novolog 20-25u+ TID Pertinent Labs: HgA1c: 8.2% 09/2023 8.8% 12/2023 10.7% 06/2024 reported 9.8% 09/2024 9.4% 03/2025 Past Medical History: (Last Reviewed 10/17/24 @ 09:18 by SYLVIA Roy) Abdominal pain Asthma Barretts esophagus Dark emesis De Quervain's disease (tenosynovitis) lt.Dental caries Diabetes Diabetes mellitus type 2, with complication, on assisted insulin pump Dyslipidemia Elevated TSH Essential hypertension Family history of cardiac disorder Gastroenteritis (~07/2017) GERD with esophagitis Hair thinning History of esophagitis History of gastroesophageal reflux (GERD) History of suicide attempt (1995) Hot flashes due to menopause Hyperlipemia Hypertension Hypertensive urgency Left knee pain Noncompliance Onychomycosis of left great toe Recurrent vertigo Scoliosis Screening for malignant neoplasm of colon SOB (shortness of breath) on exertion (07/26/20) climbing 4 flights of stepsSubstance abuse former illicit drug useTachycardia (07/26/20) after climbing four flights of steps Nutrition Rx: Carbohydrates: Meal:30-45gSnack:15-30g Nutrition Diagnosis: - Predicted excessive CHO intake r/t limited food access and stage of change barriers aeb pt report -- continued Intervention: This participant was very receptive. Provided appropriate educational handouts. Discussed the following topics: BG trends Protein sources and access Strategies for avoiding sweets Reducing DM complications Created SMART goals for patient self-care and success. Goals: Spread out evening eating by 3-4 hours- improved Try an HS snack discussed today- not met If BG <70, treat with quick acting CHO- continue Focus on protein and veggies during the week- new Continue to avoid sweets- new Follow-up: MARIO OWENS follow-up in 4 weeks Amira Chung RDN, [facility] Certified Diabetes Care and Catapult And Arresting Gear Officer P: [phone] Thank you for this referral
== END ==
PROVIDERS: PCP Registered Nurse Diabetes Educator; Referring Provider Registered Nurse Diabetes Educator
DX: E11.65 Type 2 diabetes mellitus with hyperglycemia (principal); Z71.3 Dietary counseling and surveillance; Z79.4 Long term (current) use of insulin
CPT/HCPCS: 97803

== ENCOUNTER → 2025-06-22 07:36 | Outpatient (CLI) | payer OTHER, SELFPAY ==
[2025-06-22 08:37] LABS: Microalbumi Creatinin Ratio Ur 56.0 ug/mg CR (<30)
[2025-06-22 09:05] LABS: Hemoglobin A1C% w Est Avg Glu 9.3 % (4.0-6.0)
[2025-06-22 09:16] LABS: Alanine Aminotransferase 17 IU/L (<35); Albumin 4.5 g/dL (3.5-5.0); Albumin Globulin Ratio 1.4 (1.0-2.8); Alkaline Phosphatase 98 U/L (38-126); Globulin 3.3 g/dL (1.7-4.1); HEMOLYSIS < 15 (0-50); Total Protein 7.8 g/dL (6.3-8.2)
== END ==
PROVIDERS: PCP Registered Nurse Diabetes Educator; Referring Provider Registered Nurse Diabetes Educator; Visit Provider Registered Nurse Diabetes Educator
DX: E11.8 Type 2 diabetes mellitus with unspecified complications (principal); E11.65 Type 2 diabetes mellitus with hyperglycemia; Z79.4 Long term (current) use of insulin; B35.1 Tinea unguium; E78.5 Hyperlipidemia, unspecified
CPT/HCPCS: 36415; 80076; 82043; 82570; 83036

== ENCOUNTER → 2025-06-29 09:37 | Outpatient (CLI) | payer OTHER, SELFPAY ==
--- NOTE | 2025-06-29 10:12 | DIAB.MNTFU ---
Follow-up Diabetes Medical Nutrition Therapy Assessment Name: Michaela Zaman (Nuris) Date: 06/29/25 Time: 10-11am Dx: Type II Diabetes Nuris presents for DM follow-up. Choosing pudding regular or sf and nutragrain bars instead of sweets. Has had some low BG per report, likely r/t reduced sweets intake. Then treated low BG with ice cream and nutragrain bars. States BG took an extended time to increase. Did not check but had symptoms of sweaty, shaky, lethargy. Improved with CHO intake. Does not keep juice in the house. Also noticed insulin pen not always working. Not priming pen before injection, but will prime if noticing first injection did not work per report. Taking 20u prandial insulin if FBG >200mg/dl. Limited veggie intake. Only has canned at her friend's house during the week and does not prefer this. Prefers fresh or frozen. Diet recall: coffee and coconut creamer 10a-1p: 1.5c cheerios lemon with milk 5-7p: protein with 1.5c potatoes OR protein and salad OR pizza OR shrimp, veg and 3-4c rice 1215am: nutragrain bar If hungry in between meals: beef jerky and banana OR pudding Feels she is getting a lot of support with her Dm care with her friend Sri, whom she lives with during the week. Sri also has T2. Anthropometrics: Ht: 5'2 Wt: 231# 05/2025 at PCP 235# reported 05/2025 237# 02/2025 at PCP visit 234# 01/2025 at PCP visit 226# 09/2024 at PCP visit 215# 12/2023 at PCP visit Weight history: 385# in 20s. Has seen RDs and MDs for wt loss my whole life. Physical Activity: Reported last visit--- Trying to walk more. Previously averaged 0344-4842 steps per day. Aims for 700 steps per day. Walking for transportation. Self-Monitoring Blood Glucose: Checks blood sugars at wrist due to fear of needle stick on fingers. Not open to CGM at this time. Interested in the 365 CGM that stays under skin x 1 year. Encouraged her to discuss further with [facility] in Nov. still not currently open to trying 10 or 15 day CGM. Brought insulin log and BG log today. Continues to take changing HS insulin doses based on HS numbers, resulting in variable FBG. Continued frequent hyperglycemia FBG and HS. Today: Date Fasting mg/dl HS insuiln dose HS mg/dl 06/23 120 120 340 06/24 157 120 311 06/25 80 100 255 06/26 170 120 314 06/27 174 80 178 06/28 87 100 275 06/29 111 Last Visit: Date Fasting mg/dl HS insuiln dose HS mg/dl 05/19 132 100 300 05/20 110 100 243 05/21 87 120 387 05/22 77 120 387 05/23 209 120 344 05/24 187 40 144 05/25 156 Diabetes Medications: Lantus 80-120u Novolog 20-25u+ TID Pertinent Labs: HgA1c: 8.2% 09/2023 8.8% 12/2023 10.7% 06/2024 reported 9.8% 09/2024 9.4% 03/2025 9.3% 06/2025 Past Medical History: (Last Reviewed 10/17/24 @ 09:18 by SYLVIA Roy) Abdominal pain Asthma Barretts esophagus Dark emesis De Quervain's disease (tenosynovitis) lt.Dental caries Diabetes Diabetes mellitus type 2, with complication, 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 Dyslipidemia Elevated TSH Essential hypertension Family history of cardiac disorder Gastroenteritis (~07/2017) GERD with esophagitis Hair thinning History of esophagitis History of gastroesophageal reflux (GERD) History of suicide attempt (1995) Hot flashes due to menopause Hyperlipemia Hypertension Hypertensive urgency Left knee pain Noncompliance Onychomycosis of left great toe Recurrent vertigo Scoliosis Screening for malignant neoplasm of colon SOB (shortness of breath) on exertion (07/26/20) climbing 4 flights of stepsSubstance abuse former illicit drug useTachycardia (07/26/20) after climbing four flights of steps Nutrition Rx: Carbohydrates: Meal:30-45gSnack:15-30g Nutrition Diagnosis: - Predicted excessive CHO intake r/t limited food access and stage of change barriers aeb pt report -- continued / improved Intervention: This participant was very receptive. Provided appropriate educational handouts. Discussed the following topics: BG trends Protein intake Veggie access Strategies for avoiding sweets Rule of 15 for treating lows Injection technique and priming pens Created SMART goals for patient self-care and success. Goals: Focus on protein and veggies during the week- improved Continue to avoid sweets- met Prime pen prior to injection- new applications support lead glucose tabs for lows- new applications support lead frozen veggies for weekdays- new Follow-up: MARIO OWENS follow-up in 4-6 weeks after endo visit. Nuris has improved her eating, however stage of change for Dm management is generally in contemplative stages. Would benefit from GLP1 and/or insulin pump therapy with CGM, however barriers to each. GLP1 barrier is insurance and cost. Barrier to pump/CGM therapy is mostly stage of change. Sees endo in Nov. Amira Chung RDN, [facility] Certified Diabetes Care and Certified Neurodiagnostic Technologist P: [phone] Thank you for this referral
== END ==
LOC: DIET 09:37
PROVIDERS: PCP Registered Nurse Diabetes Educator; Referring Provider Registered Nurse Diabetes Educator
DX: E11.65 Type 2 diabetes mellitus with hyperglycemia (principal); Z71.3 Dietary counseling and surveillance; Z79.4 Long term (current) use of insulin
CPT/HCPCS: 97803

== ENCOUNTER → 2025-08-05 09:48 | Outpatient (CLI) | payer OTHER, SELFPAY ==
--- NOTE | 2025-08-05 10:03 | DIAB.MNTFU ---
Follow-up Diabetes Medical Nutrition Therapy Assessment Name: Michaela Zaman (Nuris) Date: 08/05/25 Time: Dx: Type II Diabetes Nuris presents for DM follow-up. Losing wt and seems motivated to make diet changes. Saw [facility] recently and has auth in motion for implantable CGM, Eversense. Endorses recent low, seemingly severe though she did not have her SMBG supplies to check. Reports taking meal time insulin with plans to eat fast food, then ate at home low CHo meal at a friend's house. This resulted in sweating, shaky symptoms. Did not have low tx supplies. Ended up finding some gummy products at friend's house to treat with. Plans to molded goods spot picker glucose tabs. Confirmed dx of gastroparesis. States she cannot eat uncooked fruit or veggies. Does not want to count carbs, as [facility] had recommended. Wants to cut out rice, pasta, sweets, bread. Anthropometrics: Ht: 5'2 Wt: 228# 06/2025 at PCP 231# 05/2025 at PCP 235# reported 05/2025 237# 02/2025 at PCP visit 234# 01/2025 at PCP visit 226# 09/2024 at PCP visit 215# 12/2023 at PCP visit Weight history: 385# in 20s. Has seen RDs and MDs for wt loss my whole life. Physical Activity: Not discussed today Self-Monitoring Blood Glucose: Checks blood sugars at wrist due to fear of needle stick on fingers. Not open to CGM at this time. Interested in the 365 CGM that stays under skin x 1 year. Encouraged her to discuss further with [facility] in Nov. still not currently open to trying 10 or 15 day CGM. Brought insulin log and BG log today. Continues to take changing HS insulin doses based on HS numbers, resulting in variable FBG. Continued frequent hyperglycemia FBG and HS. Today: Date Fasting mg/dl HS insuiln dose HS mg/dl 07/30 127 40 180 07/31 167 0 91 08/01 203 0 112 08/02 230 120 345 08/03 280 120 346 08/04 185 110 08/05 195 Last Visit: Date Fasting mg/dl HS insuiln dose HS mg/dl 06/23 120 120 340 06/24 157 120 311 06/25 80 100 255 06/26 170 120 314 06/27 174 80 178 06/28 87 100 275 10/8 111 Diabetes Medications: Lantus 80-120u Novolog 20-25u+ TID Pertinent Labs: HgA1c: 8.2% 09/2023 8.8% 12/2023 10.7% 06/2024 reported 9.8% 09/2024 9.4% 03/2025 9.3% 06/2025 Past Medical History: (Last Reviewed 06/24/25 @ 11:47 by SYLVIA Roy) Abdominal pain Asthma Barretts esophagus Dark emesis De Quervain's disease (tenosynovitis) lt. Dental caries Diabetes Diabetes mellitus type 2, with complication, on group home insulin pump Dyslipidemia Elevated TSH Essential hypertension Family history of cardiac disorder Gastroenteritis (~07/2017) GERD with esophagitis Hair thinning History of esophagitis History of gastroesophageal reflux (GERD) History of nicotine dependence History of suicide attempt (1995) Hot flashes due to menopause Hyperlipemia Hypertension Hypertensive urgency Left knee pain Microalbuminuria Noncompliance Onychomycosis of left great toe Recurrent vertigo Scoliosis Screening for malignant neoplasm of colon Shortness of breath SOB (shortness of breath) on exertion (07/26/20) climbing 4 flights of steps Subclinical hypothyroidism Substance abuse former illicit drug use Tachycardia (07/26/20) after climbing four flights of steps Nutrition Rx: Carbohydrates: Meal:30-45gSnack:15-30g Nutrition Diagnosis: - Predicted excessive CHO intake r/t limited food access and stage of change barriers aeb pt report -- continued / improved - Nutrition and food related knowledge deficit r/t newly dx gastroparesis aeb provider notes and pt report- new Intervention: This participant was very receptive. Provided appropriate educational handouts. Discussed the following topics: BG trends Rule of 15 for treating lows and keeping low supplies with her Gastroparesis MNT Ways to add more veggies Troubleshooting CGM access with Eversense Created SMART goals for patient self-care and success. Goals: Prime pen prior to injection- met electrician constructor supervisor glucose tabs for lows- in progress electrician constructor supervisor frozen veggies for weekdays- not met Try smoothies with veggies and low fat yogurt- new Call CGM company, as discussed- new Follow-up: MARIO OWENS follow-up in 4 weeks or sooner luis a Chung RDN, [facility] Certified Diabetes Care and Assistant Associate Full Professor P: [phone] Thank you for this referral
== END ==
LOC: DIET 09:49
PROVIDERS: PCP Registered Nurse Diabetes Educator; Referring Provider Registered Nurse Diabetes Educator
DX: E11.65 Type 2 diabetes mellitus with hyperglycemia (principal); Z79.4 Long term (current) use of insulin; Z71.3 Dietary counseling and surveillance
CPT/HCPCS: 97803

== ENCOUNTER → 2025-09-06 09:45 | Outpatient (CLI) | payer OTHER, SELFPAY ==
--- NOTE | 2025-09-23 08:18 | DIAB.MNTFU ---
Follow-up Diabetes Medical Nutrition Therapy Assessment Name: Michaela Zaman (Nuris) Date: 09/06/25 Time: 1005-11a Dx: Type II Diabetes Nuris presents for DM follow-up. Denies any severe symptoms of lows since last visit. Now carrying snacks and glucose tabs on her. Has felt lows with 20u prandial and then not eating CHO. States insurance will not cover glucagon. Endorses gastroparesis. Eating 2-3x per day. Wants to lose wt and reduce or eliminate insulin per report. Feels she has had some wt loss r/t the way clothes feel. Choosing lean proteins, ie chx and fish. Diet Recall: nausea in the morning 2-3p: steamed veg +/- salmon snacks: pork rinds/beef jerky/ pepperoni stix 6-7p: mixed veg or just salmon Sees PCP in September. Anthropometrics: Ht: 5'2 Wt: 228# 06/2025 at PCP 231# 05/2025 at PCP 235# reported 05/2025 237# 02/2025 at PCP visit 234# 01/2025 at PCP visit 226# 09/2024 at PCP visit 215# 12/2023 at PCP visit Weight history: 385# in 20s. Has seen RDs and MDs for wt loss my whole life. Physical Activity: walking more vs taking bus lately. Self-Monitoring Blood Glucose: Improved FBG and less BG over 250mg/dl. Still hving excessive hyperglycemia. Checks blood sugars at wrist due to fear of needle stick on fingers. Only interested in the 365 CGM that stays under skin x 1 year. States insurance does not seem to want to cover this. In progress with endo and CGM company. Brought insulin log and BG log today. Continues to take changing HS insulin doses based on HS numbers, resulting in variable FBG. Continued frequent hyperglycemia FBG and HS. Today: Date Fasting mg/dl HS insuiln dose HS mg/dl 08/31 101 120 352 lemonade 09/01 230 100 282 09/02 86 40 206 09/03 148 20 198 /14 167 100 240 15 165 20 166 09/06 227 Last Visit: Date Fasting mg/dl HS insuiln dose HS mg/dl 07/30 127 40 180 07/31 167 0 91 08/01 203 0 112 08/02 230 120 345 08/03 280 120 346 08/04 185 110 08/05 195 Diabetes Medications: Lantus 80-120u Novolog 20-25u+ TID Pertinent Labs: HgA1c: 8.2% 09/2023 8.8% 12/2023 10.7% 06/2024 reported 9.8% 09/2024 9.4% 03/2025 9.3% 06/2025 Past Medical History: (Last Reviewed 06/24/25 @ 11:47 by SYLVIA Roy) Abdominal pain Asthma Barretts esophagus Dark emesis De Quervain's disease (tenosynovitis) lt. Dental caries Diabetes Diabetes mellitus type 2, with complication, on shelter insulin pump Dyslipidemia Elevated TSH Essential hypertension Family history of cardiac disorder Gastroenteritis (~07/2017) GERD with esophagitis Hair thinning History of esophagitis History of gastroesophageal reflux (GERD) History of nicotine dependence History of suicide attempt (1995) Hot flashes due to menopause Hyperlipemia Hypertension Hypertensive urgency Left knee pain Microalbuminuria Noncompliance Onychomycosis of left great toe Recurrent vertigo Scoliosis Screening for malignant neoplasm of colon Shortness of breath SOB (shortness of breath) on exertion (07/26/20) climbing 4 flights of steps Subclinical hypothyroidism Substance abuse former illicit drug use Tachycardia (07/26/20) after climbing four flights of steps Nutrition Rx: Carbohydrates: Meal:30-45gSnack:15-30g Nutrition Diagnosis: - Predicted excessive CHO intake r/t limited food access and stage of change barriers aeb pt report -- improved - Nutrition and food related knowledge deficit r/t newly dx gastroparesis aeb provider notes and pt report- in progress Intervention: This participant was very receptive. Provided appropriate educational handouts. Discussed the following topics: BG trends Treating lows and dosing for correction vs carb intake Gastroparesis MNT review reduced fat intake for heart health and gastroparesis Weight management goals and strategies Physical activity Created SMART goals for patient self-care and success. 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
== END ==
LOC: DIET 09:45
PROVIDERS: PCP Registered Nurse Diabetes Educator; Referring Provider Registered Nurse Diabetes Educator
DX: E11.65 Type 2 diabetes mellitus with hyperglycemia (principal); Z71.3 Dietary counseling and surveillance; Z79.4 Long term (current) use of insulin
CPT/HCPCS: 97803